=== PATIENT | female | born 1960 | race Caucasian/White ===

== ENCOUNTER → 2023-06-17 12:47 | Outpatient (REF) | payer OTHER, SELFPAY ==
[2023-06-17 15:13] LABS: % Basophils 1.4 % (0-2); % Immature Granulocytes 0.5 % (0-0.5); % Lymphocytes 26.9 % (20.5-51.1); % Monocytes 7.1 % (1.7-9.3); % Neutrophils 59.1 % (42.2-75.2); Absolute Basophils 0.1 10^3/uL (0-0.2); Absolute Eosinophils 0.2 10^3/uL (0-0.7); Absolute Lymphocytes 1.2 10^3/uL (1.2-3.4); Absolute Monocytes 0.3 10^3/uL (0.1-0.6); Absolute Neutrophils 2.6 10^3/uL (1.4-6.5); Hematocrit 37.5 % (37.0-47.0); Hemoglobin 12.1 g/dL (12.0-16.0); Mean Corp Hgb Conc. 32.3 g/dL (33.0-37.0); Mean Corpuscular Hgb 30.3 pg (27.0-31.0); Mean Platelet Volume 11.8 fL (7.4-10.4); Nucleated Red Blood Cells % 0 %; Platelet Count 193 10^3/uL (130-400); Red Blood Cell Count 3.99 10^6/uL (4.20-5.40); Red Cell Dist. Width 14.4 % (11.5-14.5); White Blood Cell Count 4.4 10^3/uL (4.8-10.8)
[2023-06-17 15:23] LABS: ALT (SGPT) 23 U/L (0-35); AST (SGOT) 33 U/L (14-36); Albumin 3.8 g/dl (3.5-5.0); Alkaline Phosphatase 133 U/L (38-126); Blood Urea Nitrogen 23 mg/dl (7-17); Calcium 9.5 mg/dl (8.4-10.2); Carbon Dioxide 30 mmol/L (22-30); Chloride 97 mmol/L (98-107); Glucose 102 mg/dl (70-99); Potassium 4.2 mmol/L (3.5-5.1); Sodium 137 mmol/L (135-145); Total Bilirubin 0.4 mg/dl (0.2-1.3); Total Protein 6.9 g/dl (6.3-8.2); eGFR 57.52
[2023-06-20 18:37] LABS: Chromogranin A 58 ng/mL (0-187)
== END ==
LOC: HWLAB 12:47
PROVIDERS: ATTENDING PHYSICIAN Internal Medicine Hematology & Oncology; FAMILY PHYSICIAN Internal Medicine
DX: C20 Malignant neoplasm of rectum (principal); D70.9 Neutropenia, unspecified
CPT/HCPCS: 36415; 80053; 85025; 86316

== ENCOUNTER → 2023-07-14 12:27 | Outpatient (REF) | payer OTHER, SELFPAY ==
[2023-07-14 15:36] LABS: % Basophils 0.9 % (0-2); % Eosinophils 6.3 % (0-6); % Immature Granulocytes 0.4 % (0-0.5); % Lymphocytes 21.8 % (20.5-51.1); % Monocytes 7.9 % (1.7-9.3); % Neutrophils 62.7 % (42.2-75.2); Absolute Basophils 0.1 10^3/uL (0-0.2); Absolute Eosinophils 0.4 10^3/uL (0-0.7); Absolute Lymphocytes 1.2 10^3/uL (1.2-3.4); Absolute Monocytes 0.4 10^3/uL (0.1-0.6); Absolute Neutrophils 3.5 10^3/uL (1.4-6.5); Hematocrit 36.6 % (37.0-47.0); Hemoglobin 11.8 g/dL (12.0-16.0); Mean Corp Hgb Conc. 32.2 g/dL (33.0-37.0); Mean Corpuscular Hgb 30.3 pg (27.0-31.0); Mean Corpuscular Volume 93.8 fL (81.0-99.0); Mean Platelet Volume 11.6 fL (7.4-10.4); Nucleated Red Blood Cells % 0 %; Platelet Count 182 10^3/uL (130-400); Red Cell Dist. Width 14.9 % (11.5-14.5); White Blood Cell Count 5.6 10^3/uL (4.8-10.8)
[2023-07-14 15:50] LABS: ALT (SGPT) 23 U/L (0-35); AST (SGOT) 29 U/L (14-36); Alkaline Phosphatase 112 U/L (38-126); Blood Urea Nitrogen 17 mg/dl (7-17); Calcium 9.3 mg/dl (8.4-10.2); Carbon Dioxide 31 mmol/L (22-30); Chloride 98 mmol/L (98-107); Glucose 115 mg/dl (70-99); Potassium 4.3 mmol/L (3.5-5.1); Sodium 137 mmol/L (135-145); Total Bilirubin 0.4 mg/dl (0.2-1.3); Total Protein 7.3 g/dl (6.3-8.2); eGFR > 60.00
[2023-07-17 19:07] LABS: Chromogranin A 92 ng/mL (0-187)
== END ==
LOC: HWLAB 12:27
PROVIDERS: ATTENDING PHYSICIAN Internal Medicine Hematology & Oncology; FAMILY PHYSICIAN Internal Medicine; REFERRING PHYSICIAN Nuclear Medicine
DX: C20 Malignant neoplasm of rectum (principal); D70.9 Neutropenia, unspecified; G62.0 Drug-induced polyneuropathy; E34.0 Carcinoid syndrome; C78.7 Secondary malignant neoplasm of liver and intrahepatic bile duct
CPT/HCPCS: 36415; 80053; 85025; 86316

== ENCOUNTER → 2023-08-13 12:44 | Outpatient (REF) | payer OTHER, SELFPAY ==
[2023-08-13 16:14] LABS: % Basophils 1.1 % (0-2); % Eosinophils 7.9 % (0-6); % Immature Granulocytes 0.3 % (0-0.5); % Lymphocytes 24.9 % (20.5-51.1); % Monocytes 11.3 % (1.7-9.3); % Neutrophils 54.5 % (42.2-75.2); Absolute Eosinophils 0.3 10^3/uL (0-0.7); Absolute Lymphocytes 0.9 10^3/uL (1.2-3.4); Absolute Monocytes 0.4 10^3/uL (0.1-0.6); Absolute Neutrophils 1.9 10^3/uL (1.4-6.5); Hematocrit 36.4 % (37.0-47.0); Hemoglobin 11.9 g/dL (12.0-16.0); Mean Corp Hgb Conc. 32.7 g/dL (33.0-37.0); Mean Corpuscular Hgb 30.4 pg (27.0-31.0); Mean Corpuscular Volume 93.1 fL (81.0-99.0); Mean Platelet Volume 12.3 fL (7.4-10.4); Nucleated Red Blood Cells % 0 %; Platelet Count 180 10^3/uL (130-400); Red Blood Cell Count 3.91 10^6/uL (4.20-5.40); Red Cell Dist. Width 14.8 % (11.5-14.5); White Blood Cell Count 3.5 10^3/uL (4.8-10.8)
[2023-08-13 16:21] LABS: ALT (SGPT) 23 U/L (0-35); AST (SGOT) 30 U/L (14-36); Albumin 4.1 g/dl (3.5-5.0); Alkaline Phosphatase 99 U/L (38-126); Blood Urea Nitrogen 16 mg/dl (7-17); Calcium 9.3 mg/dl (8.4-10.2); Carbon Dioxide 33 mmol/L (22-30); Chloride 99 mmol/L (98-107); Glucose 95 mg/dl (70-99); Potassium 4.3 mmol/L (3.5-5.1); Sodium 137 mmol/L (135-145); Total Bilirubin 0.3 mg/dl (0.2-1.3); Total Protein 7.2 g/dl (6.3-8.2); eGFR > 60.00
[2023-08-16 22:08] LABS: Chromogranin A 75 ng/mL (0-187)
== END ==
LOC: HWLAB 12:44
PROVIDERS: ATTENDING PHYSICIAN Internal Medicine Hematology & Oncology; FAMILY PHYSICIAN Internal Medicine; REFERRING PHYSICIAN Nuclear Medicine
DX: C20 Malignant neoplasm of rectum (principal); D70.9 Neutropenia, unspecified; G62.0 Drug-induced polyneuropathy; E34.0 Carcinoid syndrome; C78.7 Secondary malignant neoplasm of liver and intrahepatic bile duct
CPT/HCPCS: 36415; 80053; 85025; 86316

== ENCOUNTER → 2023-09-12 13:25 | Outpatient (REF) | payer OTHER, SELFPAY ==
[2023-09-12 15:47] LABS: ALT (SGPT) 19 U/L (0-35); AST (SGOT) 31 U/L (14-36); Albumin 4.1 g/dl (3.5-5.0); Alkaline Phosphatase 127 U/L (38-126); Blood Urea Nitrogen 21 mg/dl (7-17); Calcium 9.1 mg/dl (8.4-10.2); Carbon Dioxide 28 mmol/L (22-30); Chloride 102 mmol/L (98-107); Glucose 91 mg/dl (70-99); Potassium 4.1 mmol/L (3.5-5.1); Sodium 138 mmol/L (135-145); Total Bilirubin 0.4 mg/dl (0.2-1.3); Total Protein 7.2 g/dl (6.3-8.2); eGFR 57.52
[2023-09-12 15:51] LABS: % Basophils 0.8 % (0-2); % Eosinophils 4.5 % (0-6); % Immature Granulocytes 0.4 % (0-0.5); % Lymphocytes 13.3 % (20.5-51.1); Absolute Eosinophils 0.2 10^3/uL (0-0.7); Absolute Lymphocytes 0.7 10^3/uL (1.2-3.4); Absolute Monocytes 0.4 10^3/uL (0.1-0.6); Absolute Neutrophils 3.5 10^3/uL (1.4-6.5); Hemoglobin 11.1 g/dL (12.0-16.0); Mean Corp Hgb Conc. 33.6 g/dL (33.0-37.0); Mean Corpuscular Hgb 30.6 pg (27.0-31.0); Mean Corpuscular Volume 90.9 fL (81.0-99.0); Mean Platelet Volume 11.3 fL (7.4-10.4); Nucleated Red Blood Cells % 0 %; Platelet Count 171 10^3/uL (130-400); Red Blood Cell Count 3.63 10^6/uL (4.20-5.40); White Blood Cell Count 4.9 10^3/uL (4.8-10.8)
== END ==
LOC: HWLAB 13:25
PROVIDERS: ATTENDING PHYSICIAN Internal Medicine Hematology & Oncology; FAMILY PHYSICIAN Internal Medicine; REFERRING PHYSICIAN Nuclear Medicine
DX: C20 Malignant neoplasm of rectum (principal); D70.9 Neutropenia, unspecified; G62.0 Drug-induced polyneuropathy; E34.0 Carcinoid syndrome; C78.7 Secondary malignant neoplasm of liver and intrahepatic bile duct
CPT/HCPCS: 36415; 80053; 85025; 86316

== ENCOUNTER → 2023-10-08 13:20 | Outpatient (REF) | payer OTHER, SELFPAY ==
[2023-10-08 16:21] LABS: % Basophils 1.7 % (0-2); % Eosinophils 8.8 % (0-6); % Immature Granulocytes 0.3 % (0-0.5); % Lymphocytes 13.5 % (20.5-51.1); % Monocytes 7.4 % (1.7-9.3); % Neutrophils 68.3 % (42.2-75.2); Absolute Basophils 0.1 10^3/uL (0-0.2); Absolute Eosinophils 0.3 10^3/uL (0-0.7); Absolute Lymphocytes 0.4 10^3/uL (1.2-3.4); Absolute Monocytes 0.2 10^3/uL (0.1-0.6); Hematocrit 37.8 % (37.0-47.0); Hemoglobin 12.5 g/dL (12.0-16.0); Mean Corp Hgb Conc. 33.1 g/dL (33.0-37.0); Mean Corpuscular Hgb 30.9 pg (27.0-31.0); Mean Corpuscular Volume 93.6 fL (81.0-99.0); Mean Platelet Volume 11.8 fL (7.4-10.4); Nucleated Red Blood Cells % 0 %; Platelet Count 180 10^3/uL (130-400); Red Blood Cell Count 4.04 10^6/uL (4.20-5.40); Red Cell Dist. Width 15.4 % (11.5-14.5)
[2023-10-08 16:42] LABS: ALT (SGPT) 20 U/L (0-35); AST (SGOT) 32 U/L (14-36); Albumin 4.3 g/dl (3.5-5.0); Alkaline Phosphatase 118 U/L (38-126); Blood Urea Nitrogen 11 mg/dl (7-17); Calcium 9.5 mg/dl (8.4-10.2); Carbon Dioxide 30 mmol/L (22-30); Chloride 101 mmol/L (98-107); Glucose 137 mg/dl (70-99); Potassium 3.9 mmol/L (3.5-5.1); Sodium 139 mmol/L (135-145); Total Bilirubin 0.7 mg/dl (0.2-1.3); Total Protein 7.5 g/dl (6.3-8.2); eGFR > 60.00
== END ==
LOC: HWLAB 13:20
PROVIDERS: ATTENDING PHYSICIAN Internal Medicine Hematology & Oncology; FAMILY PHYSICIAN Internal Medicine; REFERRING PHYSICIAN Nuclear Medicine
DX: C20 Malignant neoplasm of rectum (principal); D70.9 Neutropenia, unspecified; G62.0 Drug-induced polyneuropathy; E34.0 Carcinoid syndrome; C78.7 Secondary malignant neoplasm of liver and intrahepatic bile duct
CPT/HCPCS: 36415; 80053; 85025; 86316

== ENCOUNTER → 2023-11-06 12:41 | Outpatient (REF) | payer OTHER, SELFPAY ==
[2023-11-06 15:55] LABS: % Basophils 0.9 % (0-2); % Immature Granulocytes 0.3 % (0-0.5); % Lymphocytes 11.7 % (20.5-51.1); % Neutrophils 77.1 % (42.2-75.2); Absolute Eosinophils 0.1 10^3/uL (0-0.7); Absolute Lymphocytes 0.4 10^3/uL (1.2-3.4); Absolute Monocytes 0.2 10^3/uL (0.1-0.6); Absolute Neutrophils 2.7 10^3/uL (1.4-6.5); Hematocrit 35.9 % (37.0-47.0); Mean Corp Hgb Conc. 33.4 g/dL (33.0-37.0); Mean Corpuscular Hgb 32.3 pg (27.0-31.0); Mean Corpuscular Volume 96.5 fL (81.0-99.0); Mean Platelet Volume 10.9 fL (7.4-10.4); Nucleated Red Blood Cells % 0 %; Platelet Count 167 10^3/uL (130-400); Red Blood Cell Count 3.72 10^6/uL (4.20-5.40); Red Cell Dist. Width 15.1 % (11.5-14.5); White Blood Cell Count 3.5 10^3/uL (4.8-10.8)
[2023-11-06 16:06] LABS: ALT (SGPT) 21 U/L (0-35); AST (SGOT) 27 U/L (14-36); Albumin 4.3 g/dl (3.5-5.0); Alkaline Phosphatase 122 U/L (38-126); Blood Urea Nitrogen 24 mg/dl (7-17); Calcium 9.5 mg/dl (8.4-10.2); Carbon Dioxide 28 mmol/L (22-30); Chloride 102 mmol/L (98-107); Glucose 125 mg/dl (70-99); Potassium 4.2 mmol/L (3.5-5.1); Sodium 138 mmol/L (135-145); Total Bilirubin 0.5 mg/dl (0.2-1.3); Total Protein 7.4 g/dl (6.3-8.2); eGFR > 60.00
== END ==
LOC: HWLAB 12:41
PROVIDERS: ATTENDING PHYSICIAN Internal Medicine Hematology & Oncology; FAMILY PHYSICIAN Internal Medicine; REFERRING PHYSICIAN Nuclear Medicine
DX: C20 Malignant neoplasm of rectum (principal); D70.9 Neutropenia, unspecified; G62.0 Drug-induced polyneuropathy; E34.0 Carcinoid syndrome; C78.7 Secondary malignant neoplasm of liver and intrahepatic bile duct
CPT/HCPCS: 36415; 80053; 85025; 86316

== ENCOUNTER → 2023-12-02 14:11 | Outpatient (REF) | payer OTHER, SELFPAY ==
[2023-12-02 16:08] LABS: % Basophils 0.6 % (0-2); % Eosinophils 5.8 % (0-6); % Immature Granulocytes 0.3 % (0-0.5); % Lymphocytes 8.6 % (20.5-51.1); % Monocytes 9.5 % (1.7-9.3); % Neutrophils 75.2 % (42.2-75.2); Absolute Eosinophils 0.2 10^3/uL (0-0.7); Absolute Lymphocytes 0.3 10^3/uL (1.2-3.4); Absolute Monocytes 0.3 10^3/uL (0.1-0.6); Absolute Neutrophils 2.5 10^3/uL (1.4-6.5); Hematocrit 32.8 % (37.0-47.0); Mean Corp Hgb Conc. 33.5 g/dL (33.0-37.0); Mean Corpuscular Hgb 32.3 pg (27.0-31.0); Mean Corpuscular Volume 96.2 fL (81.0-99.0); Nucleated Red Blood Cells % 0 %; Platelet Count 151 10^3/uL (130-400); Red Blood Cell Count 3.41 10^6/uL (4.20-5.40); Red Cell Dist. Width 14.5 % (11.5-14.5); White Blood Cell Count 3.3 10^3/uL (4.8-10.8)
[2023-12-02 16:30] LABS: ALT (SGPT) 25 U/L (0-35); AST (SGOT) 35 U/L (14-36); Albumin 4.3 g/dl (3.5-5.0); Alkaline Phosphatase 117 U/L (38-126); Blood Urea Nitrogen 18 mg/dl (7-17); Calcium 9.3 mg/dl (8.4-10.2); Carbon Dioxide 31 mmol/L (22-30); Chloride 100 mmol/L (98-107); Glucose 63 mg/dl (70-99); Sodium 137 mmol/L (135-145); Total Bilirubin 0.4 mg/dl (0.2-1.3); Total Protein 7.3 g/dl (6.3-8.2); eGFR > 60.00
== END ==
LOC: REG 14:11
PROVIDERS: ATTENDING PHYSICIAN Internal Medicine Hematology & Oncology; FAMILY PHYSICIAN Internal Medicine
DX: C20 Malignant neoplasm of rectum (principal); D70.9 Neutropenia, unspecified; G62.0 Drug-induced polyneuropathy; E34.0 Carcinoid syndrome; C78.7 Secondary malignant neoplasm of liver and intrahepatic bile duct
CPT/HCPCS: 36415; 80053; 85025; 86316

== ENCOUNTER → 2023-12-24 13:05 | Outpatient (REF) | payer OTHER, SELFPAY ==
[2023-12-24 15:49] LABS: % Basophils 0.8 % (0-2); % Eosinophils 4.3 % (0-6); % Immature Granulocytes 0.3 % (0-0.5); % Lymphocytes 7.5 % (20.5-51.1); % Monocytes 5.1 % (1.7-9.3); Absolute Eosinophils 0.2 10^3/uL (0-0.7); Absolute Lymphocytes 0.3 10^3/uL (1.2-3.4); Absolute Monocytes 0.2 10^3/uL (0.1-0.6); Mean Corp Hgb Conc. 33.3 g/dL (33.0-37.0); Mean Corpuscular Hgb 32.5 pg (27.0-31.0); Mean Corpuscular Volume 97.6 fL (81.0-99.0); Mean Platelet Volume 10.2 fL (7.4-10.4); Nucleated Red Blood Cells % 0 %; Platelet Count 130 10^3/uL (130-400); Red Blood Cell Count 3.38 10^6/uL (4.20-5.40); Red Cell Dist. Width 14.2 % (11.5-14.5); White Blood Cell Count 3.7 10^3/uL (4.8-10.8)
[2023-12-24 15:54] LABS: ALT (SGPT) 20 U/L (0-35); AST (SGOT) 29 U/L (14-36); Albumin 4.2 g/dl (3.5-5.0); Alkaline Phosphatase 106 U/L (38-126); Blood Urea Nitrogen 21 mg/dl (7-17); Calcium 9.6 mg/dl (8.4-10.2); Carbon Dioxide 31 mmol/L (22-30); Chloride 102 mmol/L (98-107); Glucose 132 mg/dl (70-99); Potassium 4.3 mmol/L (3.5-5.1); Sodium 143 mmol/L (135-145); Total Bilirubin 0.6 mg/dl (0.2-1.3); Total Protein 7.1 g/dl (6.3-8.2); eGFR > 60.00
== END ==
LOC: HWLAB 13:05
PROVIDERS: ATTENDING PHYSICIAN Nuclear Medicine; FAMILY PHYSICIAN Internal Medicine; REFERRING PHYSICIAN Internal Medicine Hematology & Oncology
DX: C78.7 Secondary malignant neoplasm of liver and intrahepatic bile duct (principal)
CPT/HCPCS: 36415; 80053; 85025

== ENCOUNTER → 2024-01-28 15:28 | Outpatient (REF) | payer OTHER, SELFPAY ==
[2024-01-28 16:18] LABS: % Basophils 1.4 % (0-2); % Eosinophils 7.5 % (0-6); % Immature Granulocytes 0.4 % (0-0.5); % Lymphocytes 9.3 % (20.5-51.1); % Monocytes 6.4 % (1.7-9.3); Absolute Eosinophils 0.2 10^3/uL (0-0.7); Absolute Lymphocytes 0.3 10^3/uL (1.2-3.4); Absolute Monocytes 0.2 10^3/uL (0.1-0.6); Absolute Neutrophils 2.1 10^3/uL (1.4-6.5); Hematocrit 33.8 % (37.0-47.0); Hemoglobin 11.4 g/dL (12.0-16.0); Mean Corp Hgb Conc. 33.7 g/dL (33.0-37.0); Mean Corpuscular Hgb 34.5 pg (27.0-31.0); Mean Corpuscular Volume 102.4 fL (81.0-99.0); Mean Platelet Volume 10.7 fL (7.4-10.4); Nucleated Red Blood Cells % 0 %; Platelet Count 130 10^3/uL (130-400); Red Cell Dist. Width 13.4 % (11.5-14.5); White Blood Cell Count 2.8 10^3/uL (4.8-10.8)
[2024-01-28 16:41] LABS: ALT (SGPT) 24 U/L (0-35); AST (SGOT) 29 U/L (14-36); Albumin 4.5 g/dl (3.5-5.0); Alkaline Phosphatase 104 U/L (38-126); Blood Urea Nitrogen 12 mg/dl (7-17); Calcium 9.6 mg/dl (8.4-10.2); Carbon Dioxide 30 mmol/L (22-30); Chloride 99 mmol/L (98-107); Glucose 112 mg/dl (70-99); Potassium 4.7 mmol/L (3.5-5.1); Sodium 142 mmol/L (135-145); Total Bilirubin 0.4 mg/dl (0.2-1.3); Total Protein 7.6 g/dl (6.3-8.2); eGFR > 60.00
[2024-01-31 17:27] LABS: Chromogranin A 58 ng/mL (0-187)
== END ==
LOC: REG 15:28
PROVIDERS: ATTENDING PHYSICIAN Internal Medicine Hematology & Oncology; FAMILY PHYSICIAN Internal Medicine; REFERRING PHYSICIAN Nuclear Medicine
DX: C20 Malignant neoplasm of rectum (principal); D70.9 Neutropenia, unspecified; G62.0 Drug-induced polyneuropathy; C78.7 Secondary malignant neoplasm of liver and intrahepatic bile duct; E34.00 Carcinoid syndrome, unspecified
CPT/HCPCS: 36415; 80053; 85025; 86316

== ENCOUNTER → 2024-02-25 13:03 | Outpatient (REF) | payer OTHER, SELFPAY ==
[2024-02-25 16:50] LABS: ALT (SGPT) 43 U/L (0-35); AST (SGOT) 34 U/L (14-36); Albumin 4.2 g/dl (3.5-5.0); Alkaline Phosphatase 114 U/L (38-126); Blood Urea Nitrogen 12 mg/dl (7-17); Carbon Dioxide 28 mmol/L (22-30); Chloride 100 mmol/L (98-107); Glucose 103 mg/dl (70-99); Potassium 5.5 mmol/L (3.5-5.1); Sodium 138 mmol/L (135-145); Total Bilirubin 0.3 mg/dl (0.2-1.3); eGFR > 60.00
[2024-02-25 17:05] LABS: % Basophils 0.9 % (0-2); % Immature Granulocytes 1.2 % (0-0.5); % Lymphocytes 15.7 % (20.5-51.1); % Monocytes 9.5 % (1.7-9.3); % Neutrophils 61.7 % (42.2-75.2); Absolute Eosinophils 0.4 10^3/uL (0-0.7); Absolute Lymphocytes 0.5 10^3/uL (1.2-3.4); Absolute Monocytes 0.3 10^3/uL (0.1-0.6); Absolute Neutrophils 2.1 10^3/uL (1.4-6.5); Hematocrit 31.9 % (37.0-47.0); Hemoglobin 10.6 g/dL (12.0-16.0); Mean Corp Hgb Conc. 33.2 g/dL (33.0-37.0); Mean Corpuscular Hgb 33.3 pg (27.0-31.0); Mean Corpuscular Volume 100.3 fL (81.0-99.0); Mean Platelet Volume 10.6 fL (7.4-10.4); Nucleated Red Blood Cells % 0 %; Platelet Count 150 10^3/uL (130-400); Red Blood Cell Count 3.18 10^6/uL (4.20-5.40); Red Cell Dist. Width 14.3 % (11.5-14.5); White Blood Cell Count 3.4 10^3/uL (4.8-10.8)
== END ==
LOC: HWLAB 13:03
PROVIDERS: ATTENDING PHYSICIAN Internal Medicine Hematology & Oncology; FAMILY PHYSICIAN Internal Medicine; REFERRING PHYSICIAN Nuclear Medicine
DX: C20 Malignant neoplasm of rectum (principal); D70.9 Neutropenia, unspecified; G62.0 Drug-induced polyneuropathy; E34.00 Carcinoid syndrome, unspecified
CPT/HCPCS: 36415; 80053; 85025; 86316

== ENCOUNTER → 2024-03-29 12:35 | Outpatient (REF) | payer OTHER, SELFPAY ==
[2024-03-29 17:36] LABS: ALT (SGPT) 27 U/L (0-35); AST (SGOT) 37 U/L (14-36); Albumin 4.2 g/dl (3.5-5.0); Alkaline Phosphatase 146 U/L (38-126); Blood Urea Nitrogen 9 mg/dl (7-17); Calcium 8.9 mg/dl (8.4-10.2); Carbon Dioxide 30 mmol/L (22-30); Chloride 99 mmol/L (98-107); Glucose 98 mg/dl (70-99); Potassium 4.3 mmol/L (3.5-5.1); Sodium 140 mmol/L (135-145); Total Bilirubin 0.6 mg/dl (0.2-1.3); Total Protein 7.5 g/dl (6.3-8.2)
[2024-03-29 17:43] LABS: % Basophils 1.3 % (0-2); % Immature Granulocytes 0.3 % (0-0.5); % Lymphocytes 13.3 % (20.5-51.1); % Monocytes 8.9 % (1.7-9.3); % Neutrophils 55.2 % (42.2-75.2); Absolute Eosinophils 0.7 10^3/uL (0-0.7); Absolute Lymphocytes 0.4 10^3/uL (1.2-3.4); Absolute Monocytes 0.3 10^3/uL (0.1-0.6); Absolute Neutrophils 1.7 10^3/uL (1.4-6.5); Hematocrit 31.6 % (37.0-47.0); Hemoglobin 10.3 g/dL (12.0-16.0); Mean Corp Hgb Conc. 32.6 g/dL (33.0-37.0); Mean Corpuscular Hgb 34.3 pg (27.0-31.0); Mean Corpuscular Volume 105.3 fL (81.0-99.0); Mean Platelet Volume 10.9 fL (7.4-10.4); Nucleated Red Blood Cells % 0 %; Platelet Count 132 10^3/uL (130-400); Red Cell Dist. Width 13.6 % (11.5-14.5); White Blood Cell Count 3.2 10^3/uL (4.8-10.8)
[2024-03-30 16:32] LABS: Iron 106 ug/dl (37-170)
[2024-03-30 16:42] LABS: Percent Saturation 45 % (20-50); Total Iron Binding Capacity 231 ug/dl (265-497)
[2024-03-30 17:09] LABS: Ferritin 42.4 ng/ml (11.1-264.0)
[2024-03-30 17:40] LABS: Folate 17.9 ng/ml (2.76-20); Vitamin B12 442 pg/ml (239-931)
[2024-03-31 16:23] LABS: Chromogranin A 46 ng/mL (0-187)
== END ==
LOC: HWLAB 12:35
PROVIDERS: ATTENDING PHYSICIAN Internal Medicine Hematology & Oncology; FAMILY PHYSICIAN Internal Medicine; REFERRING PHYSICIAN Nuclear Medicine
DX: C20 Malignant neoplasm of rectum (principal); D70.9 Neutropenia, unspecified; G62.0 Drug-induced polyneuropathy; C78.7 Secondary malignant neoplasm of liver and intrahepatic bile duct; E34.00 Carcinoid syndrome, unspecified
CPT/HCPCS: 36415; 80053; 82607; 82728; 82746; 83540; 83550; 85025; 86316

== ENCOUNTER → 2024-04-20 12:55 | Outpatient (REF) | payer OTHER, SELFPAY ==
[2024-04-20 15:21] LABS: ALT (SGPT) 52 U/L (0-35); AST (SGOT) 70 U/L (14-36); Albumin 4.1 g/dl (3.5-5.0); Alkaline Phosphatase 118 U/L (38-126); Blood Urea Nitrogen 11 mg/dl (7-17); Calcium 8.8 mg/dl (8.4-10.2); Carbon Dioxide 25 mmol/L (22-30); Chloride 101 mmol/L (98-107); Glucose 108 mg/dl (70-99); Potassium 4.4 mmol/L (3.5-5.1); Sodium 135 mmol/L (135-145); Total Bilirubin 0.3 mg/dl (0.2-1.3); Total Protein 7.1 g/dl (6.3-8.2); eGFR > 60.00
[2024-04-20 15:27] LABS: % Basophils 1.1 % (0-2); % Eosinophils 13.8 % (0-6); % Lymphocytes 21.8 % (20.5-51.1); % Monocytes 11.1 % (1.7-9.3); % Neutrophils 52.2 % (42.2-75.2); Absolute Eosinophils 0.4 10^3/uL (0-0.7); Absolute Lymphocytes 0.6 10^3/uL (1.2-3.4); Absolute Monocytes 0.3 10^3/uL (0.1-0.6); Absolute Neutrophils 1.4 10^3/uL (1.4-6.5); Hematocrit 28.8 % (37.0-47.0); Hemoglobin 9.6 g/dL (12.0-16.0); Mean Corp Hgb Conc. 33.3 g/dL (33.0-37.0); Mean Corpuscular Volume 105.1 fL (81.0-99.0); Mean Platelet Volume 10.7 fL (7.4-10.4); Nucleated Red Blood Cells % 0 %; Platelet Count 116 10^3/uL (130-400); Red Blood Cell Count 2.74 10^6/uL (4.20-5.40); Red Cell Dist. Width 13.7 % (11.5-14.5); White Blood Cell Count 2.6 10^3/uL (4.8-10.8)
== END ==
LOC: HWLAB 12:55
PROVIDERS: ATTENDING PHYSICIAN Internal Medicine Hematology & Oncology; FAMILY PHYSICIAN Internal Medicine; REFERRING PHYSICIAN Nuclear Medicine
DX: C20 Malignant neoplasm of rectum (principal); D70.9 Neutropenia, unspecified; G62.0 Drug-induced polyneuropathy; E34.00 Carcinoid syndrome, unspecified; C78.7 Secondary malignant neoplasm of liver and intrahepatic bile duct
CPT/HCPCS: 36415; 80053; 85025; 86316

== ENCOUNTER → 2024-05-24 14:54 | Outpatient (REF) | payer OTHER, SELFPAY ==
[2024-05-24 15:59] LABS: % Basophils 0.6 % (0-2); % Eosinophils 5.6 % (0-6); % Immature Granulocytes 0.6 % (0-0.5); % Lymphocytes 13.2 % (20.5-51.1); Absolute Eosinophils 0.3 10^3/uL (0-0.7); Absolute Lymphocytes 0.6 10^3/uL (1.2-3.4); Absolute Monocytes 0.3 10^3/uL (0.1-0.6); Absolute Neutrophils 3.5 10^3/uL (1.4-6.5); Hematocrit 32.1 % (37.0-47.0); Hemoglobin 10.4 g/dL (12.0-16.0); Mean Corp Hgb Conc. 32.4 g/dL (33.0-37.0); Mean Corpuscular Hgb 33.8 pg (27.0-31.0); Mean Corpuscular Volume 104.2 fL (81.0-99.0); Mean Platelet Volume 10.9 fL (7.4-10.4); Nucleated Red Blood Cells % 0 %; Platelet Count 145 10^3/uL (130-400); Red Blood Cell Count 3.08 10^6/uL (4.20-5.40); Red Cell Dist. Width 13.8 % (11.5-14.5); White Blood Cell Count 4.9 10^3/uL (4.8-10.8)
[2024-05-24 16:14] LABS: ALT (SGPT) 25 U/L (0-35); AST (SGOT) 31 U/L (14-36); Albumin 4.1 g/dl (3.5-5.0); Alkaline Phosphatase 113 U/L (38-126); Blood Urea Nitrogen 19 mg/dl (7-17); Calcium 9.1 mg/dl (8.4-10.2); Carbon Dioxide 33 mmol/L (22-30); Chloride 97 mmol/L (98-107); Glucose 121 mg/dl (70-99); Potassium 4.2 mmol/L (3.5-5.1); Sodium 136 mmol/L (135-145); Total Bilirubin 0.3 mg/dl (0.2-1.3); eGFR 57.17
== END ==
LOC: REG 14:54
PROVIDERS: ATTENDING PHYSICIAN Internal Medicine Hematology & Oncology; FAMILY PHYSICIAN Internal Medicine; OTHER PHYSICIAN Nuclear Medicine
DX: C20 Malignant neoplasm of rectum (principal); D70.9 Neutropenia, unspecified; G62.0 Drug-induced polyneuropathy; E34.00 Carcinoid syndrome, unspecified; C78.7 Secondary malignant neoplasm of liver and intrahepatic bile duct
CPT/HCPCS: 36415; 80053; 85025

== ENCOUNTER → 2024-06-18 13:27 | Outpatient (REF) | payer OTHER, SELFPAY ==
[2024-06-18 15:29] LABS: % Basophils 0.5 % (0-2); % Eosinophils 6.7 % (0-6); % Immature Granulocytes 0.3 % (0-0.5); % Lymphocytes 17.5 % (20.5-51.1); % Monocytes 8.2 % (1.7-9.3); % Neutrophils 66.8 % (42.2-75.2); Absolute Eosinophils 0.3 10^3/uL (0-0.7); Absolute Lymphocytes 0.7 10^3/uL (1.2-3.4); Absolute Monocytes 0.3 10^3/uL (0.1-0.6); Absolute Neutrophils 2.6 10^3/uL (1.4-6.5); Hematocrit 33.7 % (37.0-47.0); Hemoglobin 11.4 g/dL (12.0-16.0); Mean Corp Hgb Conc. 33.8 g/dL (33.0-37.0); Mean Corpuscular Hgb 34.9 pg (27.0-31.0); Mean Corpuscular Volume 103.1 fL (81.0-99.0); Mean Platelet Volume 11.2 fL (7.4-10.4); Nucleated Red Blood Cells % 0 %; Platelet Count 149 10^3/uL (130-400); Red Blood Cell Count 3.27 10^6/uL (4.20-5.40); Red Cell Dist. Width 13.6 % (11.5-14.5); White Blood Cell Count 3.9 10^3/uL (4.8-10.8)
[2024-06-18 15:37] LABS: ALT (SGPT) 44 U/L (0-35); AST (SGOT) 39 U/L (14-36); Albumin 4.2 g/dl (3.5-5.0); Alkaline Phosphatase 133 U/L (38-126); Blood Urea Nitrogen 12 mg/dl (7-17); Calcium 9.1 mg/dl (8.4-10.2); Carbon Dioxide 28 mmol/L (22-30); Chloride 104 mmol/L (98-107); Glucose 119 mg/dl (70-99); Iron 89 ug/dl (37-170); Potassium 4.1 mmol/L (3.5-5.1); Sodium 139 mmol/L (135-145); Total Bilirubin 0.5 mg/dl (0.2-1.3); Total Protein 7.6 g/dl (6.3-8.2); eGFR > 60.00
[2024-06-18 15:47] LABS: Percent Saturation 33 % (20-50); Total Iron Binding Capacity 264 ug/dl (265-497)
[2024-06-18 16:12] LABS: Ferritin 30.7 ng/ml (11.1-264.0)
[2024-06-18 16:43] LABS: Folate > 20.0 ng/ml (2.76-20); Vitamin B12 526 pg/ml (239-931)
== END ==
LOC: HWLAB 13:27
PROVIDERS: ATTENDING PHYSICIAN Internal Medicine Hematology & Oncology; FAMILY PHYSICIAN Internal Medicine; REFERRING PHYSICIAN Nuclear Medicine
DX: C20 Malignant neoplasm of rectum (principal); D70.9 Neutropenia, unspecified; G62.0 Drug-induced polyneuropathy; E34.00 Carcinoid syndrome, unspecified; C78.7 Secondary malignant neoplasm of liver and intrahepatic bile duct
CPT/HCPCS: 36415; 80053; 82607; 82728; 82746; 83540; 83550; 85025

== ENCOUNTER → 2024-07-05 13:48 | Outpatient (REF) | payer OTHER, SELFPAY | LOC: HWLAB 13:48 | PROVIDERS: ATTENDING PHYSICIAN Nurse Practitioner Adult Health; FAMILY PHYSICIAN Internal Medicine | DX: C20 Malignant neoplasm of rectum (principal); D70.9 Neutropenia, unspecified; G62.0 Drug-induced polyneuropathy; E34.00 Carcinoid syndrome, unspecified; C78.7 Secondary malignant neoplasm of liver and intrahepatic bile duct | CPT/HCPCS: 87045; 87046; 87324; 87328; 87329; 87427; 87449; 89055 ==

== ENCOUNTER → 2024-07-13 13:18 | Outpatient (REF) | payer OTHER, SELFPAY ==
[2024-07-13 16:40] LABS: % Basophils 1.3 % (0-2); % Eosinophils 10.2 % (0-6); % Immature Granulocytes 0.3 % (0-0.5); % Lymphocytes 27.5 % (20.5-51.1); % Monocytes 9.2 % (1.7-9.3); % Neutrophils 51.5 % (42.2-75.2); Absolute Eosinophils 0.3 10^3/uL (0-0.7); Absolute Lymphocytes 0.8 10^3/uL (1.2-3.4); Absolute Monocytes 0.3 10^3/uL (0.1-0.6); Absolute Neutrophils 1.6 10^3/uL (1.4-6.5); Hematocrit 31.6 % (37.0-47.0); Hemoglobin 10.5 g/dL (12.0-16.0); Mean Corp Hgb Conc. 33.2 g/dL (33.0-37.0); Mean Corpuscular Hgb 33.9 pg (27.0-31.0); Mean Corpuscular Volume 101.9 fL (81.0-99.0); Mean Platelet Volume 11.9 fL (7.4-10.4); Nucleated Red Blood Cells % 0 %; Platelet Count 124 10^3/uL (130-400); Red Cell Dist. Width 13.9 % (11.5-14.5); White Blood Cell Count 3.1 10^3/uL (4.8-10.8)
[2024-07-13 16:54] LABS: ALT (SGPT) 30 U/L (0-35); AST (SGOT) 30 U/L (14-36); Albumin 3.9 g/dl (3.5-5.0); Alkaline Phosphatase 129 U/L (38-126); Blood Urea Nitrogen 10 mg/dl (7-17); Calcium 8.8 mg/dl (8.4-10.2); Carbon Dioxide 30 mmol/L (22-30); Chloride 103 mmol/L (98-107); Glucose 92 mg/dl (70-99); Potassium 4.1 mmol/L (3.5-5.1); Sodium 138 mmol/L (135-145); Total Bilirubin 0.5 mg/dl (0.2-1.3); Total Protein 6.9 g/dl (6.3-8.2); eGFR > 60.00
== END ==
LOC: HWLAB 13:18
PROVIDERS: ATTENDING PHYSICIAN Internal Medicine Hematology & Oncology; FAMILY PHYSICIAN Internal Medicine; REFERRING PHYSICIAN Nuclear Medicine
DX: C20 Malignant neoplasm of rectum (principal); D70.9 Neutropenia, unspecified; G62.0 Drug-induced polyneuropathy; E34.00 Carcinoid syndrome, unspecified; C78.7 Secondary malignant neoplasm of liver and intrahepatic bile duct
CPT/HCPCS: 36415; 80053; 85025; 86316

== ENCOUNTER → 2024-08-18 13:21 | Outpatient (REF) | payer OTHER, SELFPAY ==
[2024-08-18 16:04] LABS: % Basophils 0.5 % (0-2); % Eosinophils 1.9 % (0-6); % Immature Granulocytes 0.5 % (0-0.5); % Lymphocytes 11.4 % (20.5-51.1); % Monocytes 4.1 % (1.7-9.3); % Neutrophils 81.6 % (42.2-75.2); Absolute Eosinophils 0.1 10^3/uL (0-0.7); Absolute Lymphocytes 0.5 10^3/uL (1.2-3.4); Absolute Monocytes 0.2 10^3/uL (0.1-0.6); Absolute Neutrophils 3.4 10^3/uL (1.4-6.5); Hematocrit 32.4 % (37.0-47.0); Mean Corpuscular Hgb 33.8 pg (27.0-31.0); Mean Corpuscular Volume 99.7 fL (81.0-99.0); Nucleated Red Blood Cells % 0 %; Red Blood Cell Count 3.25 10^6/uL (4.20-5.40); Red Cell Dist. Width 13.5 % (11.5-14.5); White Blood Cell Count 4.1 10^3/uL (4.8-10.8)
[2024-08-18 16:05] LABS: ALT (SGPT) 52 U/L (0-35); AST (SGOT) 56 U/L (14-36); Albumin 3.9 g/dl (3.5-5.0); Alkaline Phosphatase 94 U/L (38-126); Blood Urea Nitrogen 16 mg/dl (7-17); Calcium 9.5 mg/dl (8.4-10.2); Carbon Dioxide 25 mmol/L (22-30); Chloride 105 mmol/L (98-107); Glucose 155 mg/dl (70-99); Potassium 4.2 mmol/L (3.5-5.1); Sodium 140 mmol/L (135-145); Total Bilirubin 0.5 mg/dl (0.2-1.3); eGFR > 60.00
[2024-08-18 16:36] LABS: Mean Platelet Volume 11.8 fL (7.4-10.4); Platelet Count 115 10^3/uL (130-400)
== END ==
LOC: HWLAB 13:21
PROVIDERS: ATTENDING PHYSICIAN Internal Medicine Hematology & Oncology; FAMILY PHYSICIAN Internal Medicine; REFERRING PHYSICIAN Nuclear Medicine
DX: C20 Malignant neoplasm of rectum (principal); D70.9 Neutropenia, unspecified; G62.0 Drug-induced polyneuropathy; E34.00 Carcinoid syndrome, unspecified; C78.7 Secondary malignant neoplasm of liver and intrahepatic bile duct
CPT/HCPCS: 36415; 80053; 85025

== ENCOUNTER → 2024-09-14 15:17 | Outpatient (REF) | payer OTHER, SELFPAY ==
[2024-09-14 17:03] LABS: ALT (SGPT) 24 U/L (0-35); AST (SGOT) 29 U/L (14-36); Albumin 4.3 g/dl (3.5-5.0); Alkaline Phosphatase 86 U/L (38-126); Blood Urea Nitrogen 12 mg/dl (7-17); Calcium 8.9 mg/dl (8.4-10.2); Carbon Dioxide 24 mmol/L (22-30); Chloride 109 mmol/L (98-107); Glucose 154 mg/dl (70-99); Potassium 3.9 mmol/L (3.5-5.1); Sodium 139 mmol/L (135-145); Total Bilirubin 0.6 mg/dl (0.2-1.3); Total Protein 7.2 g/dl (6.3-8.2); eGFR > 60.00
[2024-09-14 17:11] LABS: % Basophils 0.4 % (0-2); % Eosinophils 3.9 % (0-6); % Lymphocytes 21.4 % (20.5-51.1); % Monocytes 7.9 % (1.7-9.3); % Neutrophils 66.4 % (42.2-75.2); Absolute Eosinophils 0.1 10^3/uL (0-0.7); Absolute Lymphocytes 0.6 10^3/uL (1.2-3.4); Absolute Monocytes 0.2 10^3/uL (0.1-0.6); Absolute Neutrophils 1.9 10^3/uL (1.4-6.5); Hematocrit 30.5 % (37.0-47.0); Hemoglobin 10.5 g/dL (12.0-16.0); Mean Corp Hgb Conc. 34.4 g/dL (33.0-37.0); Mean Corpuscular Hgb 34.5 pg (27.0-31.0); Mean Corpuscular Volume 100.3 fL (81.0-99.0); Mean Platelet Volume 12.3 fL (7.4-10.4); Nucleated Red Blood Cells % 0 %; Platelet Count 97 10^3/uL (130-400); Red Blood Cell Count 3.04 10^6/uL (4.20-5.40); Red Cell Dist. Width 14.6 % (11.5-14.5); White Blood Cell Count 2.8 10^3/uL (4.8-10.8)
== END ==
LOC: REG 15:17
PROVIDERS: ATTENDING PHYSICIAN Internal Medicine Hematology & Oncology; FAMILY PHYSICIAN Internal Medicine; OTHER PHYSICIAN Nuclear Medicine
DX: C20 Malignant neoplasm of rectum (principal); D70.9 Neutropenia, unspecified; G62.0 Drug-induced polyneuropathy; E34.00 Carcinoid syndrome, unspecified; C78.7 Secondary malignant neoplasm of liver and intrahepatic bile duct
CPT/HCPCS: 36415; 80053; 85025; 86316

== ENCOUNTER → 2024-10-15 13:02 | Outpatient (REF) | payer OTHER, SELFPAY ==
[2024-10-15 15:41] LABS: % Basophils 0.8 % (0-2); % Eosinophils 4.3 % (0-6); % Immature Granulocytes 0.3 % (0-0.5); % Lymphocytes 26.6 % (20.5-51.1); % Monocytes 7.6 % (1.7-9.3); % Neutrophils 60.4 % (42.2-75.2); Absolute Eosinophils 0.2 10^3/uL (0-0.7); Absolute Lymphocytes 1.1 10^3/uL (1.2-3.4); Absolute Monocytes 0.3 10^3/uL (0.1-0.6); Absolute Neutrophils 2.4 10^3/uL (1.4-6.5); Hematocrit 34.6 % (37.0-47.0); Hemoglobin 11.8 g/dL (12.0-16.0); Mean Corp Hgb Conc. 34.1 g/dL (33.0-37.0); Mean Corpuscular Hgb 34.1 pg (27.0-31.0); Mean Platelet Volume 11.6 fL (7.4-10.4); Nucleated Red Blood Cells % 0 %; Platelet Count 179 10^3/uL (130-400); Red Blood Cell Count 3.46 10^6/uL (4.20-5.40); Red Cell Dist. Width 14.3 % (11.5-14.5)
[2024-10-15 15:55] LABS: ALT (SGPT) 28 U/L (0-35); AST (SGOT) 31 U/L (14-36); Albumin 4.4 g/dl (3.5-5.0); Alkaline Phosphatase 111 U/L (38-126); Blood Urea Nitrogen 17 mg/dl (7-17); Calcium 9.4 mg/dl (8.4-10.2); Carbon Dioxide 26 mmol/L (22-30); Chloride 103 mmol/L (98-107); Glucose 114 mg/dl (70-99); Iron 81 ug/dl (37-170); Potassium 4.7 mmol/L (3.5-5.1); Sodium 138 mmol/L (135-145); Total Bilirubin 0.5 mg/dl (0.2-1.3); Total Protein 7.7 g/dl (6.3-8.2); eGFR 57.17
[2024-10-15 16:04] LABS: Percent Saturation 35 % (20-50); Total Iron Binding Capacity 229 ug/dl (265-497)
== END ==
LOC: HWLAB 13:02
PROVIDERS: ATTENDING PHYSICIAN Nurse Practitioner Adult Health; FAMILY PHYSICIAN Internal Medicine; OTHER PHYSICIAN Internal Medicine Medical Oncology; REFERRING PHYSICIAN Internal Medicine Hematology & Oncology
DX: C20 Malignant neoplasm of rectum (principal); D70.9 Neutropenia, unspecified; G62.0 Drug-induced polyneuropathy; E34.00 Carcinoid syndrome, unspecified; C78.7 Secondary malignant neoplasm of liver and intrahepatic bile duct
CPT/HCPCS: 36415; 80053; 82728; 83540; 83550; 85025; 86316

== ENCOUNTER → 2024-11-10 13:17 | Outpatient (REF) | payer OTHER, SELFPAY ==
[2024-11-10 16:06] LABS: Hematocrit 29.5 % (37.0-47.0); Hemoglobin 9.7 g/dL (12.0-16.0); Mean Corp Hgb Conc. 32.9 g/dL (33.0-37.0); Mean Corpuscular Volume 102.1 fL (81.0-99.0); Nucleated Red Blood Cells % 0 %; Platelet Count 132 10^3/uL (130-400); Red Cell Dist. Width 14.3 % (11.5-14.5)
[2024-11-10 16:15] LABS: ALT (SGPT) 23 U/L (0-35); AST (SGOT) 26 U/L (14-36); Albumin 4.1 g/dl (3.5-5.0); Alkaline Phosphatase 67 U/L (38-126); Blood Urea Nitrogen 17 mg/dl (7-17); Calcium 9.0 mg/dl (8.4-10.2); Carbon Dioxide 28 mmol/L (22-30); Chloride 103 mmol/L (98-107); Glucose 112 mg/dl (70-99); Potassium 4.2 mmol/L (3.5-5.1); Sodium 136 mmol/L (135-145); Total Protein 7.0 g/dl (6.3-8.2); eGFR 56.81
[2024-11-10 16:44] LABS: TSH 1.45 uIU/ml (0.47-4.68)
== END ==
LOC: HWLAB 13:17
PROVIDERS: ATTENDING PHYSICIAN Internal Medicine Hematology & Oncology; FAMILY PHYSICIAN Internal Medicine; REFERRING PHYSICIAN Internal Medicine Medical Oncology
DX: C20 Malignant neoplasm of rectum (principal); D70.9 Neutropenia, unspecified; G62.0 Drug-induced polyneuropathy; E34.00 Carcinoid syndrome, unspecified; C78.7 Secondary malignant neoplasm of liver and intrahepatic bile duct
CPT/HCPCS: 36415; 80053; 84443; 85025; 86316

== ENCOUNTER → 2024-12-08 12:32 | Outpatient (REF) | payer OTHER, SELFPAY ==
[2024-12-08 15:59] LABS: Hematocrit 32.9 % (37.0-47.0); Hemoglobin 10.8 g/dL (12.0-16.0); Mean Corp Hgb Conc. 32.8 g/dL (33.0-37.0); Mean Corpuscular Volume 103.1 fL (81.0-99.0); Nucleated Red Blood Cells % 0 %; Platelet Count 154 10^3/uL (130-400); Red Cell Dist. Width 13.2 % (11.5-14.5)
[2024-12-08 16:09] LABS: ALT (SGPT) 40 U/L (0-35); AST (SGOT) 32 U/L (14-36); Albumin 4.3 g/dl (3.5-5.0); Alkaline Phosphatase 83 U/L (38-126); Blood Urea Nitrogen 16 mg/dl (7-17); Calcium 9.6 mg/dl (8.4-10.2); Carbon Dioxide 27 mmol/L (22-30); Chloride 102 mmol/L (98-107); Glucose 129 mg/dl (70-99); Potassium 4.0 mmol/L (3.5-5.1); Sodium 137 mmol/L (135-145); Total Protein 7.5 g/dl (6.3-8.2); eGFR > 60.00
== END ==
LOC: HWLAB 12:32
PROVIDERS: ATTENDING PHYSICIAN Internal Medicine Hematology & Oncology; FAMILY PHYSICIAN Internal Medicine; REFERRING PHYSICIAN Internal Medicine Medical Oncology
DX: C20 Malignant neoplasm of rectum (principal); D70.9 Neutropenia, unspecified; G62.0 Drug-induced polyneuropathy; E34.00 Carcinoid syndrome, unspecified; C78.7 Secondary malignant neoplasm of liver and intrahepatic bile duct
CPT/HCPCS: 36415; 80053; 85025; 86316

== ENCOUNTER 2024-12-20 19:09 | Emergency (ER) | payer OTHER, SELFPAY ==
[2024-12-20 19:19] VITALS: BP 146/90
[2024-12-20 19:40] LABS: Hematocrit 30.1 % (37.0-47.0); Hemoglobin 10.1 g/dL (12.0-16.0); Mean Corp Hgb Conc. 33.6 g/dL (33.0-37.0); Mean Corpuscular Volume 99.3 fL (81.0-99.0); Nucleated Red Blood Cells % 0 %; Platelet Count 151 10^3/uL (130-400); Red Cell Dist. Width 13.2 % (11.5-14.5)
[2024-12-20 20:06] LABS: ALT (SGPT) 32 U/L (0-35); AST (SGOT) 33 U/L (14-36); Albumin 4.4 g/dl (3.5-5.0); Alkaline Phosphatase 86 U/L (38-126); Blood Urea Nitrogen 14 mg/dl (7-17); Calcium 8.9 mg/dl (8.4-10.2); Carbon Dioxide 26 mmol/L (22-30); Chloride 95 mmol/L (98-107); Glucose 109 mg/dl (70-99); Lipase 14 U/L (23-300); Potassium 4.2 mmol/L (3.5-5.1); Sodium 129 mmol/L (135-145); Total Protein 7.5 g/dl (6.3-8.2); eGFR > 60.00
--- NOTE | 2024-12-20 22:57 | ED.GENMED ---
History of Present Illness
General
Chief Complaint: Abdominal Symptoms
Source: patient
Exam Limitations: none
Time Seen by Provider: 12/20/24 22:16
History of Present Illness
History of Present Illness:
Patient with known pancreatic CA and metastasis presents with ongoing abdominal issues of bloating distention decreased output through her colostomy at times. This been going on for a month. She came in now out of a recommendation from a nurse
that keeps in contact with her. No acute symptoms. She currently uses MiraLAX Colace. She has mag citrate at home
Past History
Past History
ED Past Medical History: Asthma, Cancer (Rectal CA), Hypothyroidism, Psychiatric (Anxiety, Depression, ) and Other (rectal ca, s/p resection, last chemo 08/2014. Migraines, Alcoholic hepatitis, Cellulitis, )
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 This has come apart and now there is chronic ' space' that gets
abscessed intermittently. Last drainage and sigmoid debridement one week ago. Scheduled for surgery 11/17 for reverse ileostomy, permanent colostomy, clean up of fistula, muscle graaft to close space.)
Social History
Tobacco: Vaping
Alcohol: Former (Sober for 22 years)
Drug: None
Personal: Single
Living: alone
Review of Systems
Review of Systems
All Other Systems: Not applicable
Constitutional: Denies fever or chills
Respiratory: Reports no symptoms
Cardiac: Reports no symptoms
Phy Exam
Physical Exam
Physical Exam:
GENERAL: Alert and oriented in no apparent distress
EYE: Orbits normal.
CARDIAC: Regular rate and rhythm without any obvious murmurs.
LUNGS: Clear breath sounds,normal
ABDOMEN: Mildly distended. Bowel sounds present. Colostomy in place with stool in the colostomy. Periumbilical hernia easily reducible. Old scars. No focal tenderness
NEUROLOGICAL: Alert and oriented , grossly non-focal
SKIN: Warm and dry, no rash or lesion, no discoloration, skin intact.
MUSCULOSKELETAL: No edema,no deformity.Good color
PSYCH: Normal and appropriate interaction.
Course
Orders/Labs/Results
Orders:
Orders
12/20/24 19:24
Obstruct Series W/PA Chest [CR Obstruct Series W/pa Chest] Urgent
Comment:
Reason For Exam: constipation
12/20/24 19:27
Complete Blood Count/With Diff Urgent
12/20/24 19:28
Comprehensive Metabolic Panel Urgent
Lipase Urgent
Abnormal Lab Results
12/20/24 12/20/24
19:28
WBC 3.9 L 10^3/uL
(4.8-10.8)
RBC 3.03 L 10^6/uL
(4.20-5.40)
Hgb 10.1 L g/dL
(12.0-16.0)
Hct 30.1 L %
(37.0-47.0)
MCV 99.3 H fL
(81.0-99.0)
MCH 33.3 H pg
(27.0-31.0)
MPV 10.9 H fL
(7.4-10.4)
Absolute Lymphs (auto) 0.7 L 10^3/uL
(1.2-3.4)
Lymphocytes % 16.9 L %
(20.5-51.1)
Sodium 129 L mmol/L
(135-145)
Chloride 95 L mmol/L
(98-107)
Glucose 109 H mg/dl
(70-99)
Lipase 14 L U/L
(23-300)
12/20/24 19:27
12/20/24 19:28
Vital Signs
Initial and Last Documented VS:
Initial Vital Signs
Temp Pulse Resp BP Pulse Ox
98.5 F 101 16 146/90 98
12/20/24 19:19 12/20/24 19:19 12/20/24 19:19 12/20/24 19:19 12/20/24 19:19
Last Documented Vital Signs
Temp Pulse Resp BP Pulse Ox
98.5 F 101 16 146/90 98
12/20/24 19:19 12/20/24 19:19 12/20/24 19:19 12/20/24 19:19 12/20/24 23:00
*Radiology
Radiology exam reviewed: radiology read reviewed (Subtle density suggesting pulmonary mets disease. Moderate to large amount of stool. Multiple air-fluid levels)
*Pulse Oximetry
SaO2: 98
Oxygen Mode of Delivery: Room air
Patient hypoxic: no
*Critical Care Note
Total Time (30-74mins, 75-104mins- exclusive of procedures): Not Applicable
Data Reviewed
Review of Other/Old Records Reveals: Labs, Records and Testing
ED Attending Note
-
Portions of this chart may have been created with voice recognition software.� Occasional wrong word or��sound alike� substitutions may have occurred due to the inherent limitations of voice recognition software.
Discharge Plan
Departure
Patient Disposition: Home (Routine Discharge)
Date of Disposition: 12/20/24
Time of Disposition: 22:59
Patient with high blood pressure during this ER visit?: Yes
Discharge Problem:
Progressive constipation, Known metastatic pancreatic CA, Very mild hyponatremia
Instructions: Constipation, Adult (DC), Hyponatremia, BLOOD PRESSURE
Prescriptions:
No Action
losartan 50 MG tablet
100 mg PO DAILY
cyclobenzaprine 10 MG tablet
10 mg PO DAILY
Patient Comments:
takes up to 3/day
rizatriptan 10 MG tablet
10 mg PO PRN PRN (Reason: migraine)
gabapentin 400 MG capsule
1,200 mg PO BID
Patient Comments:
patient takes 3 times per day
amlodipine 2.5 MG tablet
2.5 mg PO DAILY
levothyroxine 100 MCG tablet
100 mcg PO DAILY
trazodone 150 MG tablet
150 mg PO HS
omeprazole 20 MG capsule,delayed release(DR/EC)
20 mg PO DAILY
bupropion HCl 200 MG tablet sustained-release 12 hr
300 mg PO DAILY
Patient Comments:
patient states that she took 2 this morning
buprenorphine-naloxone 1 TAB tablet, sublingual
2 mg PO DAILY
Patient Comments:
pt states'sometimes I take 4mg'
cannabidiol [Epidiolex] 1 UNIT solution
albuterol sulfate 2.5 MG/3 ML solution for nebulization
2.5 mg inhalation R Q4HPRN PRN (Reason: wheeze)
dextroamphetamine-amphetamine 10 MG tablet
10 mg PO DAILY
famotidine 20 MG tablet
20 mg PO HS
naproxen 250 MG tablet
1 tab PO Q8HPRN PRN (Reason: pain)
fluticasone propionate [Flovent HFA] 1 PUFF HFA aerosol inhaler
2 puff inhalation R BID PRN (Reason: wheezing)
albuterol sulfate [Proventil HFA] 90 MCG/PUFF HFA aerosol inhaler
1 puff inhalation PRN PRN (Reason: rescue inhaler)
cyclobenzaprine 10 MG tablet
10 mg PO HS
cetirizine 10 MG tablet
10 mg PO HS
prochlorperazine maleate 5 MG tablet
5 mg PO Q6HPRN PRN (Reason: nausea)
ascorbic acid (vitamin C) [Vitamin C] 500 MG tablet
1,000 mg PO DAILY
magnesium [magnesium gluconate] 200 MG tablet
400 mg PO TID @ 0800,1200,1700
Patient Comments:
with meals
L.acidoph,paracasei,B.animalis 1 EACH capsule
1 ea PO DAILY
cholecalciferol (vitamin D3) 125 MCG tablet,disintegrating
5,000 unit PO DAILY
elderberry fruit and flower 1 EACH capsule
1 ea PO DAILY
Oncovin:
1 tab PO DAILY
cholestyramine (bulk) 5 GM powder
5 gm MC BID
diphenoxylate-atropine 1 TAB tablet
1 tab PO DAILYPRN PRN (Reason: diarrhea)
captopril 12.5 MG tablet
12.5 mg PO DAILY
Referrals:
Felice Lima MD [Family Provider, Internal Medicine]
Activity Restrictions/Additional Instructions:
I would recommend repeating a sodium level in 3 to 4 days
The GI office should call you tomorrow for close follow-up
Interventions
Interventions:
*Nursing Disposition Last Done: 12/20/24 23:34
Discharge Date and Time
Discharge Date/Time: 12/20/24 23:36
Print Language: CITIZEN OF [place]
== END 2024-12-20 23:36 | disposition home or self-care (01) ==
LOC: EMR 19:09
PROVIDERS: Emergency Medicine; EMERGENCY PHYSICIAN Emergency Medicine; FAMILY PHYSICIAN Internal Medicine
DX: K59.00 Constipation, unspecified (principal); C25.9 Malignant neoplasm of pancreas, unspecified; E87.1 Hypo-osmolality and hyponatremia; E03.9 Hypothyroidism, unspecified; J45.909 Unspecified asthma, uncomplicated; F17.290 Nicotine dependence, other tobacco product, uncomplicated; Z85.048 Personal history of other malignant neoplasm of rectum, rectosigmoid junction, and anus; Z93.3 Colostomy status
CPT/HCPCS: 99284; 74022; 80053; 83690; 85025

== ENCOUNTER → 2025-01-04 12:24 | Outpatient (REF) | payer OTHER, SELFPAY ==
[2025-01-04 16:24] LABS: Hematocrit 29.7 % (37.0-47.0); Hemoglobin 10.0 g/dL (12.0-16.0); Mean Corp Hgb Conc. 33.7 g/dL (33.0-37.0); Mean Corpuscular Volume 101.4 fL (81.0-99.0); Nucleated Red Blood Cells % 0 %; Platelet Count 147 10^3/uL (130-400); Red Cell Dist. Width 13.7 % (11.5-14.5)
[2025-01-04 16:42] LABS: ALT (SGPT) 31 U/L (0-35); AST (SGOT) 26 U/L (14-36); Albumin 4.0 g/dl (3.5-5.0); Alkaline Phosphatase 95 U/L (38-126); Blood Urea Nitrogen 16 mg/dl (7-17); Calcium 9.4 mg/dl (8.4-10.2); Carbon Dioxide 29 mmol/L (22-30); Chloride 99 mmol/L (98-107); Glucose 96 mg/dl (70-99); Potassium 4.0 mmol/L (3.5-5.1); Sodium 135 mmol/L (135-145); Total Protein 7.1 g/dl (6.3-8.2); eGFR > 60.00
== END ==
LOC: HWLAB 12:24
PROVIDERS: ATTENDING PHYSICIAN Internal Medicine Hematology & Oncology; FAMILY PHYSICIAN Internal Medicine; REFERRING PHYSICIAN Nuclear Medicine
DX: C20 Malignant neoplasm of rectum (principal); D70.9 Neutropenia, unspecified; G62.0 Drug-induced polyneuropathy; E34.00 Carcinoid syndrome, unspecified; C78.7 Secondary malignant neoplasm of liver and intrahepatic bile duct
CPT/HCPCS: 36415; 80053; 85025; 86316

== ENCOUNTER 2025-01-08 21:21 | Observation (INO) | payer OTHER, SELFPAY ==
[2025-01-08] VITALS (7 sets, daily range): BP systolic 133–170; BP diastolic 79–100; BMI 23.1; BMI 20.2
--- NOTE | 2025-01-08 16:44 | EDRN ---
Charito REBOLLAR in room w/ pt at this time.
--- NOTE | 2025-01-08 16:53 | ED.GENMED ---
History of Present Illness
<Roshan Smart PA-C - Last Filed: 01/08/25 20:22>
General
Chief Complaint: Abdominal Symptoms
Source: patient
Exam Limitations: none
Time Seen by Provider: 01/08/25 16:31
History of Present Illness
History of Present Illness:
64-year-old female with no metastatic pancreatic cancer patient of Dr. Thacker'ramon presents with extreme fatigue over the past 2 days or 3 days. She is accompanied by friends. Friends noted she was not responding to text messages or phone calls so
they did a house visit and found her. The patient was able to get to the door but has not really been able to converse appropriately. They states she is off from her baseline significantly. No known trauma. Patient denies specifically headache
chest pain or abdominal pain. She has a colostomy.
Past History
<Roshan Smart PA-C - Last Filed: 01/08/25 20:22>
Past History
ED Past Medical History: Asthma, Cancer (Rectal CA), Hypothyroidism, Psychiatric (Anxiety, Depression, ) and Other (rectal ca, s/p resection, last chemo 08/2014. Migraines, Alcoholic hepatitis, Cellulitis, )
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 This has come apart and now there is chronic ' space' that gets
abscessed intermittently. Last drainage and sigmoid debridement one week ago. Scheduled for surgery 11/17 for reverse ileostomy, permanent colostomy, clean up of fistula, muscle graaft to close space.)
Social History
Tobacco: Vaping
Alcohol: Former (Sober for 22 years)
Drug: None
Personal: Single
Living: alone
Phy Exam
<Roshan Smart PA-C - Last Filed: 01/08/25 20:22>
Physical Exam
Physical Exam:
General: Unwell appearing female no acute respiratory distress
HEENT: Normal cephalic atraumatic mucosa dry
Heart: Slightly tach but regular
Lungs: Decreased effort of breathing but clear otherwise
Abdomen is soft ostomy present nontender
Extremities: No cyanosis
Neurologic exam: Alert responsive verbal stimuli somewhat somnolent however. No unilateral data
Course
<Roshan Smart PA-C - Last Filed: 01/08/25 20:22>
Orders/Labs/Results
Orders:
Orders
01/08/25 16:51
CT Head W/o Iv Contrast Urgent
Comment:
Reason For Exam: change of mental status
CR Chest - 2 Views Urgent
Comment:
Reason For Exam: fatigue
01/08/25 16:52
Electrocardiogram (*1) Urgent
Reason for Study: Fatigue / Weakness
EKG- Treatment ONCE
01/08/25 17:18
COVID-19 Antigen Urgent
Source: Nasal Swab
Complete Blood Count/With Diff Urgent
Comprehensive Metabolic Panel Urgent
Lactic Acid Q4H
Comment: CANCEL 2nd LACTIC ACID IF 1st LACTIC ACID IS LESS THAN 2
Blood Culture Q30M
PHILL Source: Blood/Venous
Specimen Description:
Influenza A+B Rapid Molecular Urgent
PHILL Source: Nasal Swab
Specimen Description:
01/08/25 17:53
Urinalysis Reflex To Culture Urgent
Date Specimen was Collected: 01/08/25
Time Specimen was Collected: 20:15
01/08/25 18:14
Blood Culture Q30M
PHILL Source: Blood/Venous
Specimen Description:
01/08/25 18:53
0.9% Sodium Chloride 1000 ml [Nss] 1,000 ml IV BOLUS
Abnormal Lab Results
01/08/25
17:18
RBC 3.63 L 10^6/uL
(4.20-5.40)
Hct 35.0 L %
(37.0-47.0)
MCH 34.2 H pg
(27.0-31.0)
MPV 10.9 H fL
(7.4-10.4)
Absolute Lymphs (auto) 0.8 L 10^3/uL
(1.2-3.4)
Lymphocytes % 14.6 L %
(20.5-51.1)
BUN 18 H mg/dl
(7-17)
01/08/25 17:18
01/08/25 17:18
Vital Signs
Initial and Last Documented VS:
Initial Vital Signs
Temp Pulse Resp BP Pulse Ox
98.1 F 114 22 138/100 96
01/08/25 15:48 01/08/25 15:48 01/08/25 15:48 01/08/25 15:48 01/08/25 15:48
Last Documented Vital Signs
Temp Pulse Resp BP Pulse Ox
99 F 85 13 139/79 95
01/08/25 17:03 01/08/25 19:00 01/08/25 19:00 01/08/25 19:00 01/08/25 19:00
<Marc Rico MD - Last Filed: 01/08/25 17:52>
Orders/Labs/Results
Orders:
Orders
01/08/25 16:51
CT Head W/o Iv Contrast Urgent
Comment:
Reason For Exam: change of mental status
CR Chest - 2 Views Urgent
Comment:
Reason For Exam: fatigue
01/08/25 16:52
Electrocardiogram (*1) Urgent
Reason for Study: Fatigue / Weakness
EKG- Treatment ONCE
01/08/25 17:18
COVID-19 Antigen Urgent
Source: Nasal Swab
Complete Blood Count/With Diff Urgent
Comprehensive Metabolic Panel Urgent
Lactic Acid Q4H
Comment: CANCEL 2nd LACTIC ACID IF 1st LACTIC ACID IS LESS THAN 2
Blood Culture Q30M
PHILL Source: Blood/Venous
Specimen Description:
Influenza A+B Rapid Molecular Urgent
PHILL Source: Nasal Swab
Specimen Description:
01/08/25 17:53
Urinalysis Reflex To Culture Urgent
Date Specimen was Collected: 01/08/25
Time Specimen was Collected: 20:15
01/08/25 18:14
Blood Culture Q30M
PHILL Source: Blood/Venous
Specimen Description:
01/08/25 18:53
0.9% Sodium Chloride 1000 ml [Nss] 1,000 ml IV BOLUS
Abnormal Lab Results
01/08/25
17:18
RBC 3.63 L 10^6/uL
(4.20-5.40)
Hct 35.0 L %
(37.0-47.0)
MCH 34.2 H pg
(27.0-31.0)
MPV 10.9 H fL
(7.4-10.4)
Absolute Lymphs (auto) 0.8 L 10^3/uL
(1.2-3.4)
Lymphocytes % 14.6 L %
(20.5-51.1)
BUN 18 H mg/dl
(7-17)
01/08/25 17:18
01/08/25 17:18
Vital Signs
Initial and Last Documented VS:
Initial Vital Signs
Temp Pulse Resp BP Pulse Ox
98.1 F 114 22 138/100 96
01/08/25 15:48 01/08/25 15:48 01/08/25 15:48 01/08/25 15:48 01/08/25 15:48
Last Documented Vital Signs
Temp Pulse Resp BP Pulse Ox
99 F 85 13 139/79 95
01/08/25 17:03 01/08/25 19:00 01/08/25 19:00 01/08/25 19:00 01/08/25 19:00
<Roshan Smart PA-C - Last Filed: 01/08/25 20:22>
MDM/Problems Addressed
Differential Diagnosis Includes:
Fatigue. Consider infectious course versus worsening underlying disease versus electrolyte abnormality or metastatic issues to the brain.
Start broad workup with labs blood cultures lactic acid CT head chest x-ray COVID and flu test
<Roshan Smart PA-C - Last Filed: 01/08/25 20:22>
*Pulse Oximetry
SaO2: 96
Oxygen Mode of Delivery: Room air
Patient hypoxic: no
*Critical Care Note
Total Time (30-74mins, 75-104mins- exclusive of procedures): Not Applicable
<Roshan Smart PA-C - Last Filed: 01/08/25 20:22>
Update Note
Update Note:
EKG shows sinus rhythm with a rate of 98 no ischemic changes
Workup here overall unremarkable with negative CT of head, chest x-ray COVID and flu test. Labs reviewed without significant electrolyte abnormality or anemia. Discussed with emergency room attending who saw the patient. Patient is metastatic
cancer patient with decline and failure to thrive. Lives by herself. Not a safe discharge will admit for further evaluation
ED Attending Note
<Roshan Smart PA-C - Last Filed: 01/08/25 20:22>
-
Portions of this chart may have been created with voice recognition software.� Occasional wrong word or��sound alike� substitutions may have occurred due to the inherent limitations of voice recognition software.
<Marc Rico MD - Last Filed: 01/08/25 17:52>
ED Attending Note
Patient seen and examined by attending physician: Yes
ED Attending Note:
I have seen and evaluated the patient with a [id number] encounter. I have spoken to the advance practicer provider and involved in the medical history, the physical exam, medical decision making.
Evaluation and management service: agree unless noted differently below.
Results interpretation: agree unless noted differently below.
Focused HPI: 64-year-old female with history as noted presents to the ER for evaluation of extreme generalized weakness and multiple other complaints. Friend at bedside helps with some collateral history�apparently yesterday patient was not
responding to phone calls which is unusual for her, today someone went to check on her and found that she was extremely lethargic and appeared to be confused. Patient says that she feels very weak. She says she has a mild headache and has had some
nausea. She says that she does not think she has been vomiting. It sounds like he has been dealing with some constipation recently. No recent cough or breathing issues reported.
Physical exam: Patient appears chronically ill but is alert and answering simple questions. She is mildly hypertensive, tachycardic, tachypneic. She has no cardiac rubs gallops or murmurs. Lungs generally clear without focal wheezing or rales
appreciated. Her abdomen is soft, nondistended and no apparent tenderness. Cranial nerves are intact; generally weak throughout but strength is symmetric and there is no focal weakness or numbness on exam. She has good pulses throughout.
Medical Decision Makin-year-old female presents with generalized weakness and confusion in the setting of known pancreatic cancer. Vitals and exam as above. Will check labs including CBC and CMP, lactate and blood cultures, viral swabs. Will
check CT of the head. Check an EKG. Monitor closely reassess after the above.
Discharge Plan
Departure
Patient Disposition: Admit
Date of Disposition: 01/08/25
Time of Disposition: 20:22
Presentation/result/management discussed w/ accepting MD/DO: Hospitalist
Discharge Problem:
Weakness
Prescriptions:
No Action
losartan 50 MG tablet
100 mg PO DAILY
cyclobenzaprine 10 MG tablet
10 mg PO DAILY
Patient Comments:
takes up to 3/day
rizatriptan 10 MG tablet
10 mg PO PRN PRN (Reason: migraine)
gabapentin 400 MG capsule
1,200 mg PO BID
Patient Comments:
patient takes 3 times per day
amlodipine 2.5 MG tablet
2.5 mg PO DAILY
levothyroxine 100 MCG tablet
100 mcg PO DAILY
trazodone 150 MG tablet
150 mg PO HS
omeprazole 20 MG capsule,delayed release(DR/EC)
20 mg PO DAILY
bupropion HCl 200 MG tablet sustained-release 12 hr
300 mg PO DAILY
Patient Comments:
patient states that she took 2 this morning
buprenorphine-naloxone 1 TAB tablet, sublingual
2 mg PO DAILY
Patient Comments:
pt states'sometimes I take 4mg'
cannabidiol [Epidiolex] 1 UNIT solution
albuterol sulfate 2.5 MG/3 ML solution for nebulization
2.5 mg inhalation R Q4HPRN PRN (Reason: wheeze)
dextroamphetamine-amphetamine 10 MG tablet
10 mg PO DAILY
famotidine 20 MG tablet
20 mg PO HS
naproxen 250 MG tablet
1 tab PO Q8HPRN PRN (Reason: pain)
fluticasone propionate [Flovent HFA] 1 PUFF HFA aerosol inhaler
2 puff inhalation R BID PRN (Reason: wheezing)
albuterol sulfate [Proventil HFA] 90 MCG/PUFF HFA aerosol inhaler
1 puff inhalation PRN PRN (Reason: rescue inhaler)
cyclobenzaprine 10 MG tablet
10 mg PO HS
cetirizine 10 MG tablet
10 mg PO HS
prochlorperazine maleate 5 MG tablet
5 mg PO Q6HPRN PRN (Reason: nausea)
ascorbic acid (vitamin C) [Vitamin C] 500 MG tablet
1,000 mg PO DAILY
magnesium [magnesium gluconate] 200 MG tablet
400 mg PO TID @ 0800,1200,1700
Patient Comments:
with meals
L.acidoph,paracasei,B.animalis 1 EACH capsule
1 ea PO DAILY
cholecalciferol (vitamin D3) 125 MCG tablet,disintegrating
5,000 unit PO DAILY
elderberry fruit and flower 1 EACH capsule
1 ea PO DAILY
Oncovin:
1 tab PO DAILY
cholestyramine (bulk) 5 GM powder
5 gm MC BID
diphenoxylate-atropine 1 TAB tablet
1 tab PO DAILYPRN PRN (Reason: diarrhea)
captopril 12.5 MG tablet
12.5 mg PO DAILY
Referrals:
Che Bridges MD [Family Provider, Internal Medicine]
Interventions
Interventions:
*Risk Screen - Suicide Last Done: 01/08/25 15:53
*General Assessment Last Done: 01/08/25 18:45
*Neglect/Abuse Screening Last Done: 01/08/25 15:53
*ED- Fall Risk Assessment Last Done: 01/08/25 18:45
*ED COVID-19 Vaccine History Last Done: 01/08/25 18:45
EI-Fvybll-Qzjavjdmkd Assessment Last Done: 01/08/25 17:25
Discharge Date and Time
Print Language: KYRGYZ
--- NOTE | 2025-01-08 17:20 | EDRN ---
Dr. Rico in room w/ pt at this time
[2025-01-08 17:43] LABS: Hematocrit 35.0 % (37.0-47.0); Hemoglobin 12.4 g/dL (12.0-16.0); Mean Corp Hgb Conc. 35.4 g/dL (33.0-37.0); Mean Corpuscular Volume 96.4 fL (81.0-99.0); Nucleated Red Blood Cells % 0 %; Platelet Count 183 10^3/uL (130-400); Red Cell Dist. Width 12.9 % (11.5-14.5)
[2025-01-08 18:03] LABS: COVID-19 Antigen Negative (Negative)
[2025-01-08 18:16] LABS: ALT (SGPT) 34 U/L (0-35); AST (SGOT) 30 U/L (14-36); Albumin 4.3 g/dl (3.5-5.0); Alkaline Phosphatase 102 U/L (38-126); Blood Urea Nitrogen 18 mg/dl (7-17); Calcium 9.4 mg/dl (8.4-10.2); Carbon Dioxide 26 mmol/L (22-30); Chloride 103 mmol/L (98-107); Glucose 97 mg/dl (70-99); Potassium 4.0 mmol/L (3.5-5.1); Sodium 138 mmol/L (135-145); Total Protein 7.9 g/dl (6.3-8.2); eGFR > 60.00
[2025-01-08] MEDS: NSS 1000 IV (19:08)
[2025-01-08 20:36] LABS: Urine Character Clear (Clear)
--- NOTE | 2025-01-08 20:51 | HPS.HSE ---
Family Physician
-
Family Physician: Che Bridges
Chief Complaint
-
Generalized weakness
History of Present Illness
Unfortunate 64-year-old female with known history of colon and pancreatic cancer was pancreatic cancer diagnosed couple months ago she did not start treatment yet, also hypertension and status post bowel resection and have a colostomy, presented to
the hospital after found by some of the friend very weak and lousy and lethargic at home. According to the friend at the bedside after patient gives her permission to talk to her in front of her, according to the friend she did not see almost a
week and usually she is very awake, alert and oriented and responsive she texted her yesterday few times she responded well as well today she had some of the friend they texted she was not responding eventually when this friend went over to check on
her they found him very weak and lousy and lethargic, she feels tired, admits not eating, drinking or sleeping well, and a lot of question when you ask she have no recollection, denies any syncope or fall or accident. And she was unsure if she was
taking extra medication as she is on a multiple medication can make you weak and lousy and lethargic, denies fever, chills or cough or congestion admitted exertional shortness of breath. Complain of back and abdominal pain. Which moderate in
nature but her buprenorphine do not help her out. She does not know the dose of her medication but she has a list which was reconciled by our pharmacy.
Workup in the ER inconclusive at this stage.
Medical History
Past Medical History
Past Medical History: Reports Other
Additional Past Medical History:
Past medical history:
History of colorectal cancer many years ago
Patient diagnosed with pancreatic cancer and started treatment
History of alcohol abuse in the past but been sober for 25 years
Anxiety mood disorder
Insomnia
GERD
Hypertension
Asthma migraines
Degenerative joint arthritis
Peripheral neuropathy
Chronic fatigue and pain syndrome on narcotic
PTSD
Surgical history:
Multiple colonoscopies
Colostomy and colon resection C5-6 fusion
ORIF humeral fracture
Social history: Lives alone in friends checking on her regularly, denies smoking and no alcohol drinking 25-year and no drug.
Family history: Reviewed and noncontributory
Past Surgical History: Reports Other
Social History
Unable to obtain full social history at this time due to: Other
Family History
Family History: Other
Allergies / Home Medications
Allergies reflects when Allergies were last updated in [facility].
Home Medications with original date entered in [facility]
Allergy/Medication List:
Allergies
Allergy/AdvReac Type Severity Reaction Status Date / Time
fluconazole (From Diflucan) Allergy Hives Verified 01/08/25 15:53
morphine Allergy VOMITING Verified 01/08/25 15:53
bees/wasps Allergy Anaphylaxis Uncoded 01/08/25 15:53
environmental Allergy asthma Uncoded 01/08/25 15:53
Home Medications
amlodipine 2.5 mg tablet 2.5 mg PO DAILY 01/06/19
buprenorphine 2 mg-naloxone 0.5 mg sublingual tablet 2 mg PO DAILY 01/06/19
bupropion HCl 200 mg tablet,12 hr sustained-release 300 mg PO DAILY 01/06/19
cannabidiol 100 mg/mL oral solution (Epidiolex) 01/06/19
cyclobenzaprine 10 mg tablet 10 mg PO DAILY 01/06/19
gabapentin 400 mg capsule 1,200 mg PO BID 01/06/19
levothyroxine 100 mcg tablet 100 mcg PO DAILY 01/06/19
losartan 50 mg tablet 100 mg PO DAILY 01/06/19
omeprazole 20 mg capsule,delayed release 20 mg PO DAILY 01/06/19
rizatriptan 10 mg tablet 10 mg PO PRN PRN migraine 01/06/19
trazodone 150 mg tablet 150 mg PO HS 01/06/19
albuterol sulfate 2.5 mg/3 mL (0.083 %) solution for nebulization 2.5 mg inhalation R Q4HPRN PRN wheeze 02/09/19
dextroamphetamine-amphetamine 10 mg tablet 10 mg PO DAILY 02/09/19
famotidine 20 mg tablet 20 mg PO HS 02/09/19
albuterol sulfate 90 mcg/actuation aerosol inhaler (Proventil HFA) 1 puff inhalation PRN PRN rescue inhaler 02/25/19
fluticasone propionate 44 mcg/actuation HFA aerosol inhaler (Flovent HFA) 2 puff inhalation R BID PRN wheezing 02/25/19
naproxen 250 mg tablet 1 tab PO Q8HPRN PRN pain 02/25/19
Oncovin: 1 tab PO DAILY 10/25/19
ascorbic acid (vitamin C) 500 mg tablet (Vitamin C) 1,000 mg PO DAILY 10/25/19
cetirizine 10 mg tablet 10 mg PO HS 10/25/19
cholecalciferol (vitamin D3) 125 mcg (5,000 unit) disintegrating tablet 5,000 unit PO DAILY 10/25/19
cyclobenzaprine 10 mg tablet 10 mg PO HS 10/25/19
prochlorperazine maleate 5 mg tablet 5 mg PO Q6HPRN PRN nausea 10/25/19
captopril 12.5 mg tablet 12.5 mg PO DAILY 07/26/21
cholestyramine (bulk) 5 gm MC BID 07/26/21
diphenoxylate-atropine 2.5 mg-0.025 mg tablet 1 tab PO DAILYPRN PRN diarrhea 07/26/21
Review of Systems
-
A 12 point ROS was completed and negative except as noted: Yes
Physical Exam
Vital Signs
Vital Signs
Temp Pulse Resp BP Pulse Ox
99 F 85 13 139/79 95
01/08/25 17:03 01/08/25 19:00 01/08/25 19:00 01/08/25 19:00 01/08/25 19:00
physical exam:
General: Awake, , Lethargic but oriented x3, Mild cognitive decline appreciated, in distress and holds appropriate conversation.
HEENT: No active discharge, ecchymosis or bruising, dry lips, tongue and mucous membrane.
Eyes: No discharge or red conjunctiva, no nystagmus, pupils are reactive and equal
Neck:Supple, no JVD no bruit no goiter.
Respiratory: Normal AP contour and diameter, normal chest wall movement, normal respiratory effort, no respiratory distress,
Lungs: Good air entry bilaterally, no wheezing or rhonchi, no rales or crackles
Heart: S1, S2 regular, normal rate, no added sound.
Gastrointestinal: Colostomy present in the bag containing soft stool,Positive bowel sounds, soft, Mild epigastric tenderness, no guarding or rigidity or organomegaly
Musculoskeletal: , no chest wall abnormality or tenderness. All joints and extremities have good range of motion, no muscle tenderness or any joint swelling or tenderness.
Extremities: Mild lower extreme pitting edema, good peripheral pulses, good range of motion
Skin: Warm and dry, no ulceration, normal color. normal sensory and motor function
Psychiatric: Normal mood, normal thought and judgment, Looks down, and has flat affect,
Physical Exam
General: Other
Laboratory Results
-
01/08/25 17:18
01/08/25 17:18
Laboratory Results
Lactic Acid Cancelled 01/08/25 21:00
Total Bilirubin 0.7 mg/dl (0.2-1.3) 01/08/25 17:18
AST 30 U/L (14-36) 01/08/25 17:18
ALT 34 U/L (0-35) 01/08/25 17:18
Alkaline Phosphatase 102 U/L (38-126) 01/08/25 17:18
CXR:Subtle bilateral pulmonary nodules, which is likely due to pulmonary metastatic disease
CT head: No acute intracranial abnormality
Data Reviewed
-
Diagnostic Radiology: Image Personally Visualized and interpreted and Report Reviewed by me
Medical Tests (Nuc Med, Echo, EKG etc): Image Personally Visualized and interpreted, Report Reviewed by me and Discussed with Patient
Lab Data: Labs Reviewed by me and Discussed with Patient
Old Records: Reviewed
Impression/Plan
-
IMPRESSION:
Unfortunate 64-year-old female with history of colon cancer diagnosed many years ago and recent diagnosis of pancreatic cancer 2 months ago while did not start treatment yet, presented to the hospital after found by friend he is very weak and lousy
and lethargic workup is negative for acute abnormalities and dehydration not sure if this is polypharmacy and poor oral intake related.
Encephalopathy:
So far no clear causes, dehydration, poor oral intake while infectious causes are a possibility but so far workup is negative I will get a blood culture
Polypharmacy may be another possibility
I will decrease some of the doses of medication as discussed with the patient including gabapentin decreased to 600 twice daily from 1200, hold tonight's dose of Flexeril
Decrease trazodone to 200 tonight
Any the patient and the friends aware if she took extra dose of any medication
IV fluid
PT OT to assess functional status, may need home visiting nurse all placement as may not be safe going home.
Pancreatic cancer:
Recently diagnosed follows oncology and planning chemo in 2-week
Asthma:
With no evidence exacerbations while short of breath
Continue her home dose of albuterol and inhaler.
Hypertension:
Pressure on the high side not sure if she is taking her blood pressure medication neither she or her friend
Continue home medication
Add hydralazine as needed
Monitor vital sign
Insomnia: On trazodone with a decrease the dose from 150-100 for now
Peripheral neuropathy: On gabapentin and decrease the dose to half or 600 twice daily from 1200 twice daily.
All discussed with the patient and the friend in detail and expressed understanding of the question answered
CODE STATUS discussed with the patient and she will be DNR/DNI
DVT prophylaxis Lovenox
[2025-01-08 20:55] LABS: Urine Red Blood Cell 50-60 /HPF (0-2)
[2025-01-08] MEDS: ZOFRAN 4 MG IV (23:00)
[2025-01-08] MEDS: D5LR 1000 IV (23:01)
[2025-01-08] MEDS: PEPCID PO (23:02)
[2025-01-08] MEDS: PEPCID 20 MG PO (23:10)
[2025-01-08] MEDS: DESYREL PO (23:10)
[2025-01-09] VITALS (7 sets, daily range): BP systolic 109–174; BP diastolic 73–103; PULSE 73–116; O2SAT 98
[2025-01-09] MEDS: TORADOL 15 MG IV (00:32)
[2025-01-09] MEDS: SYNTHROID 100 MCG PO (06:00)
[2025-01-09 08:35] LABS: Hematocrit 32.7 % (37.0-47.0); Hemoglobin 11.5 g/dL (12.0-16.0); Mean Corp Hgb Conc. 35.2 g/dL (33.0-37.0); Mean Corpuscular Volume 96.7 fL (81.0-99.0); Platelet Count 149 10^3/uL (130-400); Red Cell Dist. Width 12.8 % (11.5-14.5)
[2025-01-09 08:57] LABS: Blood Urea Nitrogen 15 mg/dl (7-17); Calcium 9.0 mg/dl (8.4-10.2); Carbon Dioxide 29 mmol/L (22-30); Chloride 103 mmol/L (98-107); Estimated Creatinine Clearance 72 ml/min; Glucose 117 mg/dl (70-99); Magnesium 1.9 mg/dl (1.6-2.3); Potassium 3.6 mmol/L (3.5-5.1); Sodium 140 mmol/L (135-145); eGFR > 60.00
[2025-01-09] MEDS: ZOFRAN 4 MG IV (09:15)
[2025-01-09] MEDS: FLUSH (NSS) 2 FLUSH IV (09:15)
[2025-01-09 09:26] LABS: TSH 0.65 uIU/ml (0.47-4.68)
[2025-01-09 09:45] LABS: Vitamin B12 433 pg/ml (239-931)
[2025-01-09] MEDS: COMPAZINE 10 MG IV ×2 (10:58→23:11)
--- NOTE | 2025-01-09 12:20 | W.PN.HOSP.TC ---
Addendum entered and electronically signed by Dionte Moreno MD 01/09/25 17:09:
Abdominal series with constipation. Start MiraLAX, Colace
Original Note:
Today's Communication/Plan
-
Monitor vitals
See plan
Get outpatient records from [facility]
PT/OT
Continue fluids
Monitor orthostatics, teds
Assessment / Plan
Assessment / Plan
General: Awake, no acute distress
HEENT: Anicteric, pink conjunctiva
Respiratory: Normal AP contour and diameter, normal chest wall movement, normal respiratory effort, no respiratory distress,
Lungs: Good air entry bilaterally, no wheezing
Heart: S1, S2 regular, normal rate
Gastrointestinal: Colostomy present in the bag containing soft stool,Positive bowel sounds, soft
Extremities: Mild lower extreme pitting edema
Psychiatric: Normal mood
Metabolic encephalopathy suspect secondary to deconditioning and dehydration and possibility of polypharmacy
So far no clear causes, dehydration, poor oral intake while infectious causes are a possibility but so far workup is negative, blood culture pending
Polypharmacy may be another possibility
I will decrease some of the doses of medication as discussed with the patient including gabapentin decreased to 600 twice daily from 1200,
Decrease trazodone to 100 from 150
IV fluid
PT OT to assess functional status, may need home visiting nurse all placement as may not be safe going home
Also monitor Flexeril, might need to decrease
History of pancreatic cancer with metastases
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
Concomitant carcinoid syndrome
Follows up with Dr. Moulton from [facility]; requested records
also follows up with Dr Thacker; if symptoms do not improve then consider oncology eval for discussion regarding her malignancy as i believe majority of her fatigue is from deconditioning secondary to malignancy
Check abdominal series
Orthostatic hypotension
Teds
Continue with fluids
TSH with reflex to free T4, cortisol in a.m.
Asthma:
With no evidence exacerbations while short of breath
Continue her home dose of albuterol and inhaler.
Hypertension:
Pressure on the high side not sure if she is taking her blood pressure medication neither she or her friend
Continue home medication
Add hydralazine as needed
Monitor vital sign
Hypothyroidism
Check TSH with free T4
Continue Synthroid
Insomnia: On trazodone with a decrease the dose from 150-100 for now
Peripheral neuropathy: On gabapentin and decrease the dose to half or 600 twice daily from 1200 twice daily.
All discussed with the patient and the friend in detail and expressed understanding of the question answered
CODE STATUS discussed with the patient and she will be DNR/DNI
DVT prophylaxis Lovenox
I spent a total of 54 minutes with the patient or on the floor. More than 50% of this time involved counseling and coordination of care.
Anticipated Discharge: 24 - 48 hours
Subjective/Interval History
-
Date of Service: January 09, 2025
has nausea
Objective Data
-
Labs:
Laboratory Results
01/09/25
08:05
WBC 5.1
Hgb 11.5 L
Hct 32.7 L
Plt Count 149
Sodium 140
Potassium 3.6
Chloride 103
Carbon Dioxide 29
BUN 15
Creatinine 0.7
Glucose 117 H
Calcium 9.0
Vital Signs:
Vital Signs
Temp Pulse Resp BP Pulse Ox
97.5 F 99 16 143/93 100
01/09/25 07:30 01/09/25 07:30 01/09/25 07:30 01/09/25 07:30 01/09/25 07:30
I&O
01/08/25 01/09/25 01/10/25
06:59 06:59 06:59
Intake Total 1120 / 1120
Balance 1120 / 1120
--- NOTE | 2025-01-09 12:45 | PTCARENOTE ---
Addendum entered by Lyndsey Dunbar 01/09/25 14:41:
BP supine at 1330, 113/73, HR 98. Pt resting comfortably.
Original Note:
Placed TEDs on pt and orthostatic vital signs completed at 1130. Pt was unable to stand to do the BP due to dizziness. Supine- BP 174/103, HR 76, Sitting- 140/102, HR 104. Pt attempting to eat now before am meds as feeling nauseous this morning.
Made Dr. Moreno aware of dizziness and orthostatic BP results. Dr. Moreno wants BP meds held this morning. Updated pt on plan, will continue to monitor closely.
[2025-01-09] MEDS: NEURONTIN 600 MG PO ×2 (13:04→21:09)
[2025-01-09] MEDS: ADDERALL 10 MG PO (13:04)
[2025-01-09] MEDS: LOVENOX 40 MG SC (13:05)
[2025-01-09] MEDS: FLEXERIL 10 MG PO ×2 (13:05→21:17)
[2025-01-09] MEDS: SUBUTEX 2 MG SL ×3 (13:05→21:09)
[2025-01-09] MEDS: D5LR 1000 IV (13:05)
[2025-01-09] MEDS: WELLBUTRIN XL (24 hour extended release) 300 MG PO (13:05)
[2025-01-09] MEDS: VITAMIN D3 (cholecalciferol) PO (13:10)
--- NOTE | 2025-01-09 13:32 | CM ---
Initial assessment completed with patient and her POA/friend, Jamila [phone]. Patient lives alone in a 2 story home plus basement,
B/B on , 6 steps to enter. [employer] patient was independent in ADL's and ambulation, drives when feels well. She now is in a weakened state. She has a colostomy, has supplies, RW, SPC and a shower chair. No in-home skilled services. Does have Meals
on Wheels on . Does have a HC-POA. Has had psychiatric hospitalization many years ago. No VA benefits. PCP is Dr. Che Bridges/Dr. Lima. Pharmacy is [facility] in [place]. Discharge POC. Therapy recommendation for SNF. Will provide
Medicare.Gov list.
--- NOTE | 2025-01-09 17:45 | PTCARENOTE ---
Addendum entered by Lyndsey Dunbar 01/09/25 19:36:
Updated home med rec to reflect Subutex order and Flexeril order that pt states she takes at home.
Original Note:
pt more awake, conversant, eating dinner, stating that she has not received enough Subutex today. She states that she takes Subutex 2mg SL BID, at 1500 and bedtime, not usually in the morning. She said that she is allowed to take an additional 2mg
PRN for a total of 6mg a day. She says she also takes Flexeril 15mg at HS, No Flexeril in the morning as ordered.
Discussed above with Dr. Moreno who asked if pharmacy could confirm her dosing of Subutex. Spoke with Js in the pharmacy and he stated that when he checked the PDMP, the pt has been receiving 90 tabs of Subutex for 3o days, making sense that she
takes 2mg BID and 2mg PRN daily.
Dr. Moreno ordered one time dose for this evening of Subutex 2mg, updated pt.
[2025-01-09] MEDS: COLACE 100 MG PO ×2 (18:20→21:09)
[2025-01-09] MEDS: MIRALAX 17 GRAMS PO (18:20)
[2025-01-09] MEDS: DESYREL 100 MG PO (21:09)
[2025-01-09] MEDS: PEPCID 20 MG PO (21:09)
[2025-01-10] MEDS: SYNTHROID 100 MCG PO (05:33)
[2025-01-10 07:00] VITALS: BP 128/82
[2025-01-10] MEDS: SUBUTEX 2 MG SL ×2 (07:58→19:54)
[2025-01-10] MEDS: WELLBUTRIN XL (24 hour extended release) 300 MG PO (07:59)
[2025-01-10] MEDS: COLACE 100 MG PO (07:59)
[2025-01-10] MEDS: FLEXERIL PO (08:00)
[2025-01-10] MEDS: ADDERALL 10 MG PO (08:00)
[2025-01-10] MEDS: VITAMIN D3 (cholecalciferol) PO (08:00)
[2025-01-10] MEDS: LOVENOX 40 MG SC (08:01)
[2025-01-10] MEDS: NEURONTIN 600 MG PO ×2 (08:01→19:54)
[2025-01-10] MEDS: MIRALAX 17 GRAMS PO (08:01)
[2025-01-10 08:09] LABS: Hematocrit 29.7 % (37.0-47.0); Hemoglobin 10.2 g/dL (12.0-16.0); Mean Corp Hgb Conc. 34.3 g/dL (33.0-37.0); Mean Corpuscular Volume 98.7 fL (81.0-99.0); Nucleated Red Blood Cells % 0 %; Platelet Count 136 10^3/uL (130-400); Red Cell Dist. Width 13.2 % (11.5-14.5)
[2025-01-10] MEDS: COMPAZINE 10 MG IV (08:19)
[2025-01-10 08:36] LABS: Blood Urea Nitrogen 13 mg/dl (7-17); Calcium 8.6 mg/dl (8.4-10.2); Carbon Dioxide 31 mmol/L (22-30); Chloride 102 mmol/L (98-107); Estimated Creatinine Clearance 63 ml/min; Glucose 110 mg/dl (70-99); Potassium 3.8 mmol/L (3.5-5.1); Sodium 136 mmol/L (135-145); eGFR > 60.00
[2025-01-10 08:59] LABS: Cortisol, Random 5.1 ug/dl
[2025-01-10 10:22] VITALS: BP 108/75; BP 133/82; BP 142/88; PULSE 102; PULSE 116; PULSE 95
--- NOTE | 2025-01-10 11:18 | CM ---
Addendum entered by Harvinder Aguayo 01/10/25 15:05:
[facility] accepted patient and can offer a bed. Confirmed w/ patient that she will be supplying her own colostomy supplies while at SNF. Patient's friend will be bringing a box of supplies to the hospital for her to have when she discharges. Confirmed
this w/ [facility].
Auth initiated in [facility], clinicals faxed to [phone]
Pending certification # [id number]
Plan: [facility] once auth is received
Addendum entered by Harvinder Aguayo 01/10/25 11:48:
[facility] no beds. [facility] does not accept patient's insurance
Updated patient who identified additional facilities, [facility] and [facility]. Referrals sent in [facility]
Original Note:
Chart reviewed. Plan is for patient to d/c to SNF. Medicare.gov list provided to patient yesterday
Met w/ patient bedside, identified [facility] and [facility]. CM placed referrals in [facility]. Patient made aware if no availability at either facilities, she will need to explore additional ones.
Per hospitalist, patient is stable and can d/c when there's an accepting facility and approved authorization. Patient is due to start chemo on 02/08
Plan: SNF
--- NOTE | 2025-01-10 13:31 | W.PN.HOSP.TC ---
Today's Communication/Plan
-
SNF rehab placement
Patient will require arrangement for lanreotide injection in heme-onc office
Discharge planning
Assessment / Plan
Assessment / Plan
1. Acute toxic metabolic encephalopathy
- Suspected polypharmacy with decreased renal clearance from decreased oral intake may have played role
- On complex regimen of trazodone/Subutex/cyclobenzaprine/gabapentin
- Dose of gabapentin was decreased to 600 mg twice daily
- Mentation is better today, continue monitoring. Still have a time some disorientation/forgetfulness
2. Generalized weakness/fatigue
- [facility] records reviewed and patient have symptoms ongoing for some time, likely secondary to malignancy
- PT evaluated and patient appropriate for rehab
3. Pancreatic adenocarcinoma
History of carcinoid tumor/rectal adenocarcinoma
History of metastasis to liver/lung/lymph node
History of chemoembolization of right hepatic lobe
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
- Patient was noted to having recurrence on imaging earlier this year.
- Pancreatic head biopsy also showing pancreatic adenocarcinoma
- Patient is being managed at [facility] oncology department
- Patient was planned to get lanreotide injection on 01/11 at [facility] office followed by initiation of PRRT/chemo on 02/08
4. Essential hypertension
Episode of orthostatic hypotension
-Orthostatic vitals remain positive with systolic blood pressure dropping from 140 to 108 on standing, patient although not reporting any dizziness
-Maintain on lower extremity compression stockings
-Not on any blood pressure medication at this point.
-Will consider adding midodrine if needed
History of alcohol use disorder
Generalized anxiety/depression
Asthma
History of basal cell carcinoma s/p excision
History of migraine
History of drug-induced peripheral neuropathy
Hypothyroidism
Lumbar arthropathy
History of rectovaginal fistula post repair
History of cervical fusion
History of colostomy
CODE STATUS discussed with the patient and she will be DNR/DNI
DVT prophylaxis Lovenox
Anticipated Discharge: Today
Subjective/Interval History
-
Date of Service: January 10, 2025
patient mentation better
remains at time forgetful/disoriented
no other complains
Objective Data
-
Labs:
Laboratory Results
01/10/25
07:31
WBC 3.5 L
Hgb 10.2 L
Hct 29.7 L
Plt Count 136
Sodium 136
Potassium 3.8
Chloride 102
Carbon Dioxide 31 H
BUN 13
Creatinine 0.8
Glucose 110 H
Calcium 8.6
Vital Signs:
Vital Signs
Temp Pulse Resp BP Pulse Ox
98.1 F 92 16 128/82 95
01/10/25 07:00 01/10/25 07:00 01/10/25 07:00 01/10/25 07:00 01/10/25 07:00
I&O
01/09/25 01/10/25 01/11/25
06:59 06:59 06:59
Intake Total 1120 / 1120 1200 / 1200
Balance 1120 / 1120 1200 / 1200
Review of Systems
-
Respiratory: Reports No Symptoms
Cardiac: Reports No Symptoms
Abdomen/GI: Reports No Symptoms
Physical Exam
-
General: Negative Appears in Distress
HEENT: Negative Oxygen
Neuro: Awake, Alert, Oriented and No Motor Deficits
[2025-01-10 15:00] VITALS: BP 134/82
[2025-01-10 19:50] VITALS: BP 126/83; BP 135/86; BP 144/90; PULSE 108; PULSE 87; PULSE 97
[2025-01-10] MEDS: COLACE PO (19:55)
[2025-01-10] MEDS: DESYREL 100 MG PO (22:58)
[2025-01-10] MEDS: FLEXERIL 10 MG PO (22:58)
[2025-01-10] MEDS: PEPCID 20 MG PO (22:58)
[2025-01-10 23:31] VITALS: BP 123/80
[2025-01-11] MEDS: SYNTHROID 100 MCG PO (03:52)
[2025-01-11 07:00] VITALS: BP 127/82
[2025-01-11] MEDS: LOVENOX 40 MG SC (08:38)
[2025-01-11] MEDS: NEURONTIN 600 MG PO (08:39)
[2025-01-11] MEDS: WELLBUTRIN XL (24 hour extended release) 300 MG PO (08:39)
[2025-01-11] MEDS: ADDERALL 10 MG PO (08:39)
[2025-01-11] MEDS: COLACE PO (08:41)
[2025-01-11] MEDS: VITAMIN D3 (cholecalciferol) 125 MCG PO (08:41)
[2025-01-11] MEDS: MIRALAX PO (08:41)
[2025-01-11] MEDS: FLEXERIL PO (08:41)
[2025-01-11 09:39] VITALS: BP 103/72; BP 124/82; BP 127/82; PULSE 108; PULSE 90; PULSE 98
[2025-01-11] MEDS: SUBUTEX 2 MG SL (10:07)
--- NOTE | 2025-01-11 11:04 | CM ---
Addendum entered by Ansley Arredondo 01/11/25 12:03:
Patient auth continues in pended status, per availity. CM will continue to follow for discharge planning needs.
Plan; SNF; [facility] when patient auth approved pending bed availability.
Original Note:
Pending auth, patient seen at bedside with friend also present on 4 . Patient plan is for transition to [facility] when auth confirmed. Patient plan is for friend to provide transportation for transition to SNF when auth confirmed. CM will call to
confirm authorization. CM will continue to follow for discharge planning needs.
Plan; SNF
--- NOTE | 2025-01-11 14:05 | W.PN.HOSP.TC ---
Today's Communication/Plan
-
d/c planning for snf rehab
Assessment / Plan
Assessment / Plan
1. Acute toxic metabolic encephalopathy -resolved
- Suspected polypharmacy with decreased renal clearance from decreased oral intake may have played role
- On complex regimen of trazodone/Subutex/cyclobenzaprine/gabapentin
- Dose of gabapentin was decreased to 600 mg twice daily
- Mentation is better today, continue monitoring. Still have a time some disorientation/forgetfulness
2. Generalized weakness/fatigue
- [facility] records reviewed and patient have symptoms ongoing for some time, likely secondary to malignancy
- PT evaluated and patient appropriate for rehab
3. Pancreatic adenocarcinoma
History of carcinoid tumor/rectal adenocarcinoma
History of metastasis to liver/lung/lymph node
History of chemoembolization of right hepatic lobe
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
- Patient was noted to having recurrence on imaging earlier this year.
- Pancreatic head biopsy also showing pancreatic adenocarcinoma
- Patient is being managed at [facility] oncology department
- Patient was planned to get lanreotide injection on 01/11 at [facility] office followed by initiation of PRRT/chemo on 02/08
4. Essential hypertension
Episode of orthostatic hypotension
-Orthostatic vitals remain positive with systolic blood pressure dropping from 140 to 108 on standing, patient although not reporting any dizziness
-Maintain on lower extremity compression stockings
-Not on any blood pressure medication at this point.
-Will consider adding midodrine if needed
History of alcohol use disorder
Generalized anxiety/depression
Asthma
History of basal cell carcinoma s/p excision
History of migraine
History of drug-induced peripheral neuropathy
Hypothyroidism
Lumbar arthropathy
History of rectovaginal fistula post repair
History of cervical fusion
History of colostomy
CODE STATUS discussed with the patient and she will be DNR/DNI
DVT prophylaxis Lovenox
Anticipated Discharge: Today
Subjective/Interval History
-
Date of Service: January 11, 2025
Feeling subjectively better
No reported other issues overnight
Objective Data
-
Vital Signs:
Vital Signs
Temp Pulse Resp BP Pulse Ox
98.5 F 90 12 127/82 95
01/11/25 07:00 01/11/25 07:00 01/11/25 07:00 01/11/25 07:00 01/11/25 07:00
I&O
01/10/25 01/11/25 01/12/25
06:59 06:59 06:59
Intake Total 1200 / 1200 480 / 480
Output Total 350 / 350
Balance 1200 / 1200 130 / 130
Review of Systems
-
Respiratory: Reports No Symptoms
Cardiac: Reports No Symptoms
Abdomen/GI: Reports No Symptoms
Physical Exam
-
General: Negative Appears in Distress
HEENT: Negative Oxygen
Neuro: Awake, Alert, Oriented and No Motor Deficits
[2025-01-11 14:24] VITALS: BP 147/95; PULSE 108
--- NOTE | 2025-01-11 14:59 | CM ---
Patient now authorized to go to [facility] for SNF. CM confirmed with liaison and they requested report to be called to [phone]/fax [phone]. Auth 01/11-01/16/25 auth number per availity # [id number]. CM will update physician and patient.
Patient friend to provide transportation to SNF. Patient to bring colostomy supplies. CM will continue to follow for discharge planning needs.
Plan; [facility]
[2025-01-11 15:00] VITALS: BP 138/90
--- NOTE | 2025-01-11 16:20 | W.DCSUMMARY ---
Discharge Summary
Discharge Data
Date of Admission: 01/08/25
Date of Discharge: 01/11/25
-
Pending Results: No
Hospital Course
Discharging Physician : Dr Alec Donnelly
Disposition : To SNF rehab
Primary care physician : Dr Che Bridges
Principal Discharge diagnosis :
Acute toxic encephalopathy from polypharmacy
Generalized weakness respiratory
Chronic Discharge diagnosis :
Pancreatic adenocarcinoma
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
History of chemoembolization of right hepatic lobe
Essential hypertension
Alcohol use disorder
Asthma
History of basal cell carcinoma post excision
Migraine
Hypothyroidism
History of drug-induced peripheral neuropathy
History of rectovaginal fistula s/p repair
History of cervical fusion
History of colonic resection and colostomy
Hospital Course :
Patient is 64-year-old female with above-mentioned past medical history was brought to ER after friend found patient very weak and lethargic at home. 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
carcinoid syndrome as well and planning to undergo chemotherapy. In ER evaluation patient was noted to be encephalopathic. No clear source of infection was noted. Patient polypharmacy with multiple sedative/psychoactive medication causing patient
to be likely confused. Patient medications were adjusted and patient was monitored in the hospital. Patient had improvement in symptoms in 48 hours. Patient was evaluated by physical therapy and was deemed appropriate for SNF rehab placement.
Patient was discharged to [facility] with plan for follow-up with outpatient oncologist in office.
Important imaging findings :
None
Procedure findings :
None
Discharge Plan
-
Patient Disposition: [facility]sp/SNF
Discharge Diagnosis/Procedures: Toxic encephalopathy, Generalized weakness
Condition: Fair
Diet: Regular
Activity: As tolerated
Driving Restrictions: No driving
Referrals:
Nicholas Thacker, DO [Active, Hematology / Oncology] - in two to three days
Referral Note: For lanreotide Inj
Che Bridges MD [Family Provider, Internal Medicine] - in one week
Additional Discharge Medication Instructions: Patient takes 2mg Buprenorphine/naloxone BID at 1500 & HS, allowed an additional 2mg dose PRN daily for a max of 6mg daily
Prescriptions:
New
trazodone 50 mg Tablet
100 mg PO HS Qty: 30 0RF
buprenorphine-naloxone 2-0.5 mg tablet, sublingual
1 tab sublingual TID Qty: 9 0RF
dextroamphetamine-amphetamine [Adderall] 10 mg tablet
10 mg PO DAILY Qty: 3 0RF
Continued
rizatriptan 10 MG tablet
10 mg PO PRN PRN (Reason: migraine)
gabapentin 400 MG capsule
1,200 mg PO BID
Patient Comments:
patient takes 3 times per day
levothyroxine 100 MCG tablet
100 mcg PO DAILY
omeprazole 20 MG capsule,delayed release(DR/EC)
20 mg PO DAILY
bupropion HCl 200 MG tablet sustained-release 12 hr
300 mg PO DAILY
Patient Comments:
patient states that she took 2 this morning
Epidiolex 1 UNIT solution
albuterol sulfate 2.5 MG/3 ML solution for nebulization
2.5 mg inhalation R Q4HPRN PRN (Reason: wheeze)
famotidine 20 MG tablet
20 mg PO HS
naproxen 250 MG tablet
1 tab PO Q8HPRN PRN (Reason: pain)
fluticasone propionate [Flovent HFA] 1 PUFF HFA aerosol inhaler
2 puff inhalation R BID PRN (Reason: wheezing)
albuterol sulfate [Proventil HFA] 90 MCG/PUFF HFA aerosol inhaler
1 puff inhalation PRN PRN (Reason: rescue inhaler)
cyclobenzaprine 10 MG tablet
15 mg PO HS
cetirizine 10 MG tablet
10 mg PO HS
prochlorperazine maleate 5 MG tablet
5 mg PO Q6HPRN PRN (Reason: nausea)
ascorbic acid (vitamin C) [Vitamin C] 500 MG tablet
1,000 mg PO DAILY
cholecalciferol (vitamin D3) 125 MCG tablet,disintegrating
5,000 unit PO DAILY
Oncovin:
1 tab PO DAILY
cholestyramine (bulk) 5 GM powder
5 gm MC BID
diphenoxylate-atropine 1 TAB tablet
1 tab PO DAILYPRN PRN (Reason: diarrhea)
Discontinued
losartan 50 MG tablet
100 mg PO DAILY
amlodipine 2.5 MG tablet
2.5 mg PO DAILY
trazodone 150 MG tablet
150 mg PO HS
buprenorphine-naloxone 1 TAB tablet, sublingual
2 mg PO BID
Patient Comments:
pt states that she takes 2mg BID at 1500 & HS, allowed an additional 2mg dose PRN daily for a max of 6mg daily
dextroamphetamine-amphetamine 10 MG tablet
10 mg PO DAILY
captopril 12.5 MG tablet
12.5 mg PO DAILY
buprenorphine HCl 2 mg Tablet, Sublingual
2 mg SUBLINGUAL DAILY PRN (Reason: pain)
Patient Comments:
pt is allowed to have an additional 2mg daily PRN in addition to the 2mg BID
Discharge Orders:
Discharge Patient (As Directed); Ordered 01/11/25
Ordered By: Alec Donnelly
Discharge Date and Time
Print Language: CUBAN
== END 2025-01-11 17:20 ==
LOC: 4 EAST ACU 21:21
PROVIDERS: Internal Medicine; Physician Assistant; ADMITTING PHYSICIAN Internal Medicine; ATTENDING PHYSICIAN Hospitalist; EMERGENCY PHYSICIAN Emergency Medicine; FAMILY PHYSICIAN Internal Medicine
DX: G92.8 Other toxic encephalopathy (principal); T50.915A Adverse effect of multiple unspecified drugs, medicaments and biological substances, initial encounter; C25.0 Malignant neoplasm of head of pancreas; J45.909 Unspecified asthma, uncomplicated; I10 Essential (primary) hypertension; G47.00 Insomnia, unspecified; G62.9 Polyneuropathy, unspecified; F10.10 Alcohol abuse, uncomplicated; G43.909 Migraine, unspecified, not intractable, without status migrainosus; E03.9 Hypothyroidism, unspecified; E34.00 Carcinoid syndrome, unspecified; C78.00 Secondary malignant neoplasm of unspecified lung; C78.7 Secondary malignant neoplasm of liver and intrahepatic bile duct; C7B.8 Other secondary neuroendocrine tumors; F17.290 Nicotine dependence, other tobacco product, uncomplicated; F41.1 Generalized anxiety disorder; F32.A Depression, unspecified; I95.1 Orthostatic hypotension; Z66 Do not resuscitate; Z11.52 Encounter for screening for COVID-19; Z79.51 Long term (current) use of inhaled steroids; Z79.899 Other long term (current) drug therapy
CPT/HCPCS: 70450; 71046; 74022; 80048; 80053; 81003; 81015; 82533; 82607; 83605; 83735; 84443; 85025; 85027; 87040; 87502; 87811; 93005; 96360; 97116; 97162; 97166; 99285; G0378

== ENCOUNTER → 2025-01-14 11:30 | Outpatient (REF) | payer OTHER, SELFPAY ==
[2025-01-14 12:44] LABS: Hematocrit 28.8 % (37.0-47.0); Hemoglobin 9.6 g/dL (12.0-16.0); Mean Corp Hgb Conc. 33.3 g/dL (33.0-37.0); Mean Corpuscular Volume 101.4 fL (81.0-99.0); Platelet Count 132 10^3/uL (130-400); Red Cell Dist. Width 13.9 % (11.5-14.5)
[2025-01-14 13:07] LABS: ALT (SGPT) 38 U/L (0-35); AST (SGOT) 32 U/L (14-36); Albumin 3.3 g/dl (3.5-5.0); Alkaline Phosphatase 87 U/L (38-126); Blood Urea Nitrogen 19 mg/dl (7-17); Calcium 8.5 mg/dl (8.4-10.2); Carbon Dioxide 31 mmol/L (22-30); Chloride 102 mmol/L (98-107); Glucose 88 mg/dl (70-99); Magnesium 2.5 mg/dl (1.6-2.3); Potassium 4.7 mmol/L (3.5-5.1); Sodium 135 mmol/L (135-145); Total Protein 6.1 g/dl (6.3-8.2); eGFR > 60.00
== END ==
LOC: OLABWHC 11:30
PROVIDERS: ATTENDING PHYSICIAN Family Medicine
DX: C25.9 Malignant neoplasm of pancreas, unspecified (principal); R53.1 Weakness; G92.8 Other toxic encephalopathy
CPT/HCPCS: 36415; 80053; 83735; 85027

== ENCOUNTER 2025-02-02 12:18 | Inpatient (IN) | payer OTHER, SELFPAY ==
[2025-01-31] VITALS (13 sets, daily range): BP systolic 132–173; BP diastolic 79–115; BMI 17.6; BMI 19.0
[2025-01-31 16:15] LABS: Hematocrit 37.5 % (37.0-47.0); Hemoglobin 12.8 g/dL (12.0-16.0); Mean Corp Hgb Conc. 34.1 g/dL (33.0-37.0); Mean Corpuscular Volume 96.9 fL (81.0-99.0); Nucleated Red Blood Cells % 0 %; Platelet Count 212 10^3/uL (130-400); Red Cell Dist. Width 13.3 % (11.5-14.5)
[2025-01-31 16:28] LABS: Ammonia < 9 umol/L (9-30)
[2025-01-31 16:29] LABS: Urine Character Clear (Clear)
--- NOTE | 2025-01-31 16:29 | ED.GENMED ---
History of Present Illness
<Cooper Castro MD, Resident - Last Filed: 01/31/25 21:18>
General
Chief Complaint: Change in Mental Status
Source: patient
Exam Limitations: none
Time Seen by Provider: 01/31/25 15:39
History of Present Illness
History of Present Illness:
64-year-old female who presents today with altered mental status. The nurse states that she did not respond to visiting nurse and friend when they knocked on her door, they called the police who did a wellness check and found her on the bed in a
confused state. She was clean and unsoiled on arrival. She does not remember losing consciousness. Recently had a similar presentation where she was admitted to [facility] 01/11/2025 with polypharmacy and newly diagnosed pancreatic
adenocarcinoma for which she sees Dr. Thacker and receives chemotherapy treatments. This is a decline from her baseline mental status according to her. She has nausea and generalized body weakness. Paramedics state glucose on arrival was 88. No
fever, cough, chills, weight loss, vomiting, diarrhea, constipation, focal neurological deficits. she is on multiple medications such as chemo treatments, gabapentin, prochlorperazine, trazodone.She is alert to place and person.
Past History
<Cooper Castro MD, Resident - Last Filed: 01/31/25 21:18>
Past History
ED Past Medical History: Asthma, Cancer (Rectal CA), Hypothyroidism, Psychiatric (Anxiety, Depression, ) and Other (rectal ca, s/p resection, last chemo 08/2014. Migraines, Alcoholic hepatitis, Cellulitis, )
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 This has come apart and now there is chronic ' space' that gets
abscessed intermittently. Last drainage and sigmoid debridement one week ago. Scheduled for surgery 11/17 for reverse ileostomy, permanent colostomy, clean up of fistula, muscle graaft to close space.)
Social History
Tobacco: Vaping
Alcohol: Former (Sober for 22 years)
Drug: None
Personal: Single
Living: alone
Review of Systems
<Cooper Castro MD, Resident - Last Filed: 01/31/25 21:18>
Review of Systems
All Other Systems: ROS reviewed and negative except as documented in HPI and ROS
Phy Exam
<Cooper Castro MD, Resident - Last Filed: 01/31/25 21:18>
General Physical Exam
General Presentation: well appearing and no apparent distress
General Skin: warm
General Habitus: cachetic and elderly
Cardiovascular Exam
Cardiovascular Exam: regular rate/rhythm and no edema
Pulmonary Exam
Pulmonary Exam: lungs clear and no respiratory distress
Gastrointestinal Exam
Gastrointestinal Exam: normal bowel sounds, non tender, soft and non distended
Neurological Exam
Neurological Exam: alert and oriented x3
Musculoskeletal Exam
Musculoskeletal Exam: full ROM and no edema
Psychiatric Exam
Psychiatric Exam: anxious
Course
<Cooper Castro MD, Resident - Last Filed: 01/31/25 21:18>
Orders/Labs/Results
Orders:
Orders
01/31/25 Dinner
Regular
At Your Request: Full Participation
01/31/25 15:50
Electrocardiogram (*1) Urgent
Reason for Study: Other
Other Reason for Exam: Possible Sepsis
EKG- Treatment ONCE
IV Insert/Care/Rem.- Treatment PRN
Straight cath- Treatment ONCE
01/31/25 15:53
Ammonia Urgent
Complete Blood Count/With Diff Urgent
Comprehensive Metabolic Panel Urgent
Urinalysis Reflex To Culture Urgent
Date Specimen was Collected: 01/31/25
Time Specimen was Collected: 15:50
Urine Microscopic Reflex Cult Urgent
Blood Culture Q20M
PHILL Source: Blood/Venous
Specimen Description:
Comment: Urgent from separate sites. If patient screens positive for possible sepsis
Blood Culture Q20M
PHILL Source: Blood/Venous
Specimen Description:
Comment: Urgent from separate sites. If patient screens positive for possible sepsis
Urine Culture Urgent
PHILL Source: U
Specimen Description:
Date Specimen was Collected: 01/31/25
Time Specimen was Collected: 15:50
01/31/25 16:24
CT Head W/wo Iv Contrast Urgent
Reason For Exam: AMS with hx pancreatic ca
01/31/25 17:51
Ondansetron Injectable [Zofran] 4 mg IV NOW STA
01/31/25 20:03
Trimethobenzamide [Tigan] 200 mg IM NOW STA
01/31/25 21:29
Admit/Transfer Patient As Directed
Co-Sign Provider:
Level of Care: Observation services
Assign to:: Telemetry
Physician / Group: kingston
Diagnosis: meatbolic encephelopathy
Reason for Telemetry: Arrhythmia
Date to Stop Telemetry: 02/03/25
Time to Stop Telemetry: 11:00
PRN Pain Medication Management As Directed
May give lesser potent ordered pain med per pt: Yes
preference::
Protocol:: Medication orders for pain may be administered in a
manner that supports deferring to patient preference
when the pt is:
- Requesting an ordered lesser potent pain medication.
Least to most potent pain medications are defined
as: acetaminophen < NSAID < tramadol < opioids
(morphine, oxycodone, hydromorphone).
- Requesting a lesser dose of the same medication IF
ORDERED.
- Requesting a less intrusive route of administration
if both routes are prescribed by the provider (PO <
IV).
01/31/25 21:30
Code Status As Directed
Resuscitation Status: Do not resuscitate
Reached after discussion with pt or family/Healthcare POA: Yes
DNR Bracelet Application ONCE
01/31/25 22:52
0.9% Sodium Chloride 1000 ml [Nss] 1,000 ml IV 60 mls/hr
Albuterol Nebs [Ventolin Nebules] 2.5 mg INH R Q4HPRN PRN wheeze
Albuterol [ProAIR HFA INHALER] 2 puff INH R Q6HPRN PRN sob
Cetirizine HCl [Zyrtec] 10 mg PO HS
Metoclopramide [Reglan] 10 mg IV Q6HPRN PRN
Ondansetron Injectable [Zofran] 4 mg IV Q6HPRN PRN
telotristat ethyl [Xermelo] 250 mg PO TIDPRN PRN
01/31/25 22:52
Activity As Directed
Activity Level: As Tolerated
Vital Signs As Directed
Frequency: Per unit guidelines
DX Deep Vein Thrombosis Video Routine
01/31/25 23:00
Buprenorphine [Subutex] 2 mg SL TID
01/31/25 23:04
Simethicone [Mylicon Drops] 125 mg PO QIDPRN PRN
01/31/25 23:25
Rizatriptan Orally Disintegrat [Maxalt Education Program Coordinator (Orally Disintegrating)] 10 mg PO DAILYPRN PRN
02/01/25 06:00
Complete Blood Count/With Diff IN AM
Comprehensive Metabolic Panel IN AM
Levothyroxine [Synthroid] 75 mcg PO DAILY@0600
02/01/25 08:00
Amphet Asp/Amphet/D-Amphet [Adderall] 20 mg PO BID
Bupropion(24Hr)Extended Releas [WELLBUTRIN XL (24 hour extended release)] 450 mg PO DAILY
Cholecalciferol (Vitamin D3) [VITAMIN D3 (cholecalciferol)] 125 mcg PO DAILY
Diphenoxylate / Atropine [Lomotil] 1 tablet PO DAILY
Famotidine [Pepcid] 20 mg PO DAILY
Gabapentin [Neurontin] 600 mg PO BID
Heparin 5,000 units SC Q12
Naproxen [Naprosyn] 500 mg PO BID
Pantoprazole [Protonix] 40 mg PO DAILY
02/03/25 11:00
DC Protocol for Telemetry ONCE
Abnormal Lab Results
01/31/25
15:53
RBC 3.87 L 10^6/uL
(4.20-5.40)
MCH 33.1 H pg
(27.0-31.0)
MPV 10.6 H fL
(7.4-10.4)
Absolute Lymphs (auto) 0.9 L 10^3/uL
(1.2-3.4)
Neutrophils % 76.8 H %
(42.2-75.2)
Lymphocytes % 14.6 L %
(20.5-51.1)
BUN 21 H mg/dl
(7-17)
Total Bilirubin 1.5 H mg/dl
(0.2-1.3)
AST 40 H U/L
(14-36)
ALT 48 H U/L
(0-35)
Ammonia < 9 L umol/L
(9-30)
Urine Ketones 3+ A
(Negative)
Urine Nitrite (Reflex) Positive A
(Negative)
Urine Bacteria (Reflex) Moderate A
(Negative)
Urine Albumin (Reflex) 2+ A
(Neg - Trace)
01/31/25 15:53
01/31/25 15:53
Vital Signs
Initial and Last Documented VS:
Initial Vital Signs
BP
173/115
01/31/25 15:41
Last Documented Vital Signs
Temp Pulse Resp BP Pulse Ox
98 F 92 11 149/79 98
01/31/25 15:42 01/31/25 22:45 01/31/25 22:45 01/31/25 22:00 01/31/25 22:45
<Bart Black, DO - Last Filed: 01/31/25 23:46>
Orders/Labs/Results
Orders:
Orders
01/31/25 Dinner
Regular
At Your Request: Full Participation
01/31/25 15:50
Electrocardiogram (*1) Urgent
Reason for Study: Other
Other Reason for Exam: Possible Sepsis
EKG- Treatment ONCE
IV Insert/Care/Rem.- Treatment PRN
Straight cath- Treatment ONCE
01/31/25 15:53
Ammonia Urgent
Complete Blood Count/With Diff Urgent
Comprehensive Metabolic Panel Urgent
Urinalysis Reflex To Culture Urgent
Date Specimen was Collected: 01/31/25
Time Specimen was Collected: 15:50
Urine Microscopic Reflex Cult Urgent
Blood Culture Q20M
PHILL Source: Blood/Venous
Specimen Description:
Comment: Urgent from separate sites. If patient screens positive for possible sepsis
Blood Culture Q20M
PHILL Source: Blood/Venous
Specimen Description:
Comment: Urgent from separate sites. If patient screens positive for possible sepsis
Urine Culture Urgent
PHILL Source: U
Specimen Description:
Date Specimen was Collected: 01/31/25
Time Specimen was Collected: 15:50
01/31/25 16:24
CT Head W/wo Iv Contrast Urgent
Reason For Exam: AMS with hx pancreatic ca
01/31/25 17:51
Ondansetron Injectable [Zofran] 4 mg IV NOW STA
01/31/25 20:03
Trimethobenzamide [Tigan] 200 mg IM NOW STA
01/31/25 21:29
Admit/Transfer Patient As Directed
Co-Sign Provider:
Level of Care: Observation services
Assign to:: Telemetry
Physician / Group: kingston
Diagnosis: meatbolic encephelopathy
Reason for Telemetry: Arrhythmia
Date to Stop Telemetry: 02/03/25
Time to Stop Telemetry: 11:00
PRN Pain Medication Management As Directed
May give lesser potent ordered pain med per pt: Yes
preference::
Protocol:: Medication orders for pain may be administered in a
manner that supports deferring to patient preference
when the pt is:
- Requesting an ordered lesser potent pain medication.
Least to most potent pain medications are defined
as: acetaminophen < NSAID < tramadol < opioids
(morphine, oxycodone, hydromorphone).
- Requesting a lesser dose of the same medication IF
ORDERED.
- Requesting a less intrusive route of administration
if both routes are prescribed by the provider (PO <
IV).
01/31/25 21:30
Code Status As Directed
Resuscitation Status: Do not resuscitate
Reached after discussion with pt or family/Healthcare POA: Yes
DNR Bracelet Application ONCE
01/31/25 22:52
0.9% Sodium Chloride 1000 ml [Nss] 1,000 ml IV 60 mls/hr
Albuterol Nebs [Ventolin Nebules] 2.5 mg INH R Q4HPRN PRN wheeze
Albuterol [ProAIR HFA INHALER] 2 puff INH R Q6HPRN PRN sob
Cetirizine HCl [Zyrtec] 10 mg PO HS
Metoclopramide [Reglan] 10 mg IV Q6HPRN PRN
Ondansetron Injectable [Zofran] 4 mg IV Q6HPRN PRN
telotristat ethyl [Xermelo] 250 mg PO TIDPRN PRN
10/06/25 22:52
Activity As Directed
Activity Level: As Tolerated
Vital Signs As Directed
Frequency: Per unit guidelines
DX Deep Vein Thrombosis Video Routine
01/31/25 23:00
Buprenorphine [Subutex] 2 mg SL TID
01/31/25 23:04
Simethicone [Mylicon Drops] 125 mg PO QIDPRN PRN
01/31/25 23:25
Rizatriptan Orally Disintegrat [Maxalt Education Program Coordinator (Orally Disintegrating)] 10 mg PO DAILYPRN PRN
02/01/25 06:00
Complete Blood Count/With Diff IN AM
Comprehensive Metabolic Panel IN AM
Levothyroxine [Synthroid] 75 mcg PO DAILY@0600
02/01/25 08:00
Amphet Asp/Amphet/D-Amphet [Adderall] 20 mg PO BID
Bupropion(24Hr)Extended Releas [WELLBUTRIN XL (24 hour extended release)] 450 mg PO DAILY
Cholecalciferol (Vitamin D3) [VITAMIN D3 (cholecalciferol)] 125 mcg PO DAILY
Diphenoxylate / Atropine [Lomotil] 1 tablet PO DAILY
Famotidine [Pepcid] 20 mg PO DAILY
Gabapentin [Neurontin] 600 mg PO BID
Heparin 5,000 units SC Q12
Naproxen [Naprosyn] 500 mg PO BID
Pantoprazole [Protonix] 40 mg PO DAILY
02/03/25 11:00
DC Protocol for Telemetry ONCE
Abnormal Lab Results
01/31/25
15:53
RBC 3.87 L 10^6/uL
(4.20-5.40)
MCH 33.1 H pg
(27.0-31.0)
MPV 10.6 H fL
(7.4-10.4)
Absolute Lymphs (auto) 0.9 L 10^3/uL
(1.2-3.4)
Neutrophils % 76.8 H %
(42.2-75.2)
Lymphocytes % 14.6 L %
(20.5-51.1)
BUN 21 H mg/dl
(7-17)
Total Bilirubin 1.5 H mg/dl
(0.2-1.3)
AST 40 H U/L
(14-36)
ALT 48 H U/L
(0-35)
Ammonia < 9 L umol/L
(9-30)
Urine Ketones 3+ A
(Negative)
Urine Nitrite (Reflex) Positive A
(Negative)
Urine Bacteria (Reflex) Moderate A
(Negative)
Urine Albumin (Reflex) 2+ A
(Neg - Trace)
01/31/25 15:53
01/31/25 15:53
Vital Signs
Initial and Last Documented VS:
Initial Vital Signs
BP
173/115
01/31/25 15:41
Last Documented Vital Signs
Temp Pulse Resp BP Pulse Ox
98 F 92 11 149/79 98
01/31/25 15:42 01/31/25 22:45 01/31/25 22:45 01/31/25 22:00 01/31/25 22:45
<Cooper Castro MD, Resident - Last Filed: 01/31/25 21:18>
MDM/Problems Addressed
MDM/Problems Addressed:
CBC- unremarkable
CMP- bilirubin of 1.5, AST of 40, ALT of 48 indicate mild hepatocellular injury
EKG- Normal sinus rhythm
CT head - no evidence of abnormality
UA- 3+ ketones, and urine nitrate positive, with 0-2 urine RBC. Suspicion for UTI low.
blood cultures- pending
Gave patient Zofran for nausea which didn't control the symptoms so then administered Tigan 200 mg
Will admit for persistent nausea, vomiting, and hyperbilirubinemia suspected to be secondary to pancreatic adenocarcinoma.
<Cooper Castro MD, Resident - Last Filed: 01/31/25 21:18>
*Pulse Oximetry
SaO2: 98
Oxygen Mode of Delivery: Room air
Patient hypoxic: no
*Critical Care Note
Total Time (30-74mins, 75-104mins- exclusive of procedures): Not Applicable
ED Attending Note
<Cooper Castro MD, Resident - Last Filed: 01/31/25 21:18>
-
Portions of this chart may have been created with voice recognition software.� Occasional wrong word or��sound alike� substitutions may have occurred due to the inherent limitations of voice recognition software.
<Bart Black, DO - Last Filed: 01/31/25 23:46>
ED Attending Note
Patient seen and examined by attending physician: Yes
I performed a history and physical exam of patient and discussed management with resident, I reviewed resident's note and agree with documented findings and plan of care.: Yes
ED Attending Note:
I reviewed and agree with history and treatment plan by Cooper Castro MD. My exam revealed
Physical Exam
General: Chronic ill appearance
Neck: supple. no meningeal signs. normal posterior pharynx
Heart: s1/s2 regular rate and rhythm, no murmur. equal radial
pulses.
HEENT: Pupils equal round reactive to light, EOMI
Lungs: no acute respiratory distress. clear bilaterally
Abdomen: normal bowel sounds. not tender. no CVAT
Neuro: alert and oriented. no focal neurological deficits cranial nerves II through XII intact
Skin: no rash
Psychiatric: well kept. interactive and cooperative
Extremities: no edema. no calf tenderness. negative homans. good distal pulses
64-year-old female with persistent nausea vomiting, weakness difficulty caring for self. Pancreatic cancer. Likely toxic metabolic encephalopathy secondary to polypharmacy. Admit to hospitalist for further management.
Discharge Plan
Departure
Patient Disposition: Admit
Date of Disposition: 01/31/25
Time of Disposition: 20:32
Admit to: Telemetry
Presentation/result/management discussed w/ accepting MD/DO: Hospitalist
Patient with high blood pressure during this ER visit?: Yes
Condition: Fair
Discharge Problem:
Acute alteration in mental status, Vomiting, Hyperbilirubinemia, Adenocarcinoma of pancreas
Interventions
Interventions:
*Risk Screen - Suicide Last Done: 01/31/25 15:42
*General Assessment Last Done: 01/31/25 15:42
*Neglect/Abuse Screening Last Done: 01/31/25 15:42
*ED- Fall Risk Assessment Last Done: 01/31/25 15:42
*ED COVID-19 Vaccine History Last Done: 01/31/25 15:42
*ED Influenza Vaccine History Last Done: 01/31/25 15:42
*Nursing Disposition Last Done: 01/31/25 22:56
ED- Pulmonary Assessment Last Done: 01/31/25 16:36
ED- Neurological Assessment Last Done: 01/31/25 15:48
ED- Cardiac Assessment Last Done: 01/31/25 16:36
Discharge Date and Time
Discharge Date/Time: 01/31/25 22:56
[2025-01-31 16:33] LABS: ALT (SGPT) 48 U/L (0-35); AST (SGOT) 40 U/L (14-36); Albumin 4.1 g/dl (3.5-5.0); Alkaline Phosphatase 125 U/L (38-126); Blood Urea Nitrogen 21 mg/dl (7-17); Calcium 9.1 mg/dl (8.4-10.2); Carbon Dioxide 26 mmol/L (22-30); Chloride 98 mmol/L (98-107); Estimated Creatinine Clearance 47 ml/min; Glucose 79 mg/dl (70-99); Potassium 4.0 mmol/L (3.5-5.1); Sodium 137 mmol/L (135-145); Total Protein 7.9 g/dl (6.3-8.2); eGFR > 60.00
[2025-01-31 17:13] LABS: Urine Squamous Cell 0-2 /LPF (Few)
[2025-01-31 17:15] LABS: Urine Red Blood Cell 0-2 /HPF (0-2); Urine White Cell 0-2 /HPF (0-5)
[2025-01-31] MEDS: ZOFRAN 4 MG IV (17:59)
[2025-01-31] MEDS: TIGAN 200 MG IM (20:09)
--- NOTE | 2025-01-31 21:35 | HPS.HSE ---
Family Physician
-
Family Physician: Nicholas Thacker
Chief Complaint
-
nausea, altered mental status
History of Present Illness
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
hypertension, alcohol use disorder, asthma, basal cell carcinoma status post excision, migraines, hypothyroidism, drug-induced peripheral neuropathy, rectovaginal fistula status post repair, cervical fusion, presenting with altered mental status.
Visiting nurse went to see the patient when they knocked on her door they called the police did a wellness check and found her on the bed in a confused state. Patient does not remember losing consciousness.
She recently had a similar presentation when she was hospitalized from 01/08 to 01/11 for acute toxic encephalopathy from polypharmacy. Her medications were adjusted at that time. Trazodone was decreased from 150 to 100 mg. Prophy naloxone was
decreased from 2 tabs to 1 tablet 3 times daily. She went to rehab afterwards and then went home.
She has nausea and generalized body weakness without vomiting. Paramedics state glucose on arrival was 88. She denies any fever, cough, chills, weight loss, vomiting, diarrhea, constipation, numbness or tingling or focal weakness. She has lost
weight. Patient denies taking excess of her medications.
She is supposed to start PRRT therapy next week at [place].
Medical History
Past Medical History
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
alcohol use disorder, asthma, basal cell carcinoma status post excision, migraines, hypothyr)
Past Surgical History: Reports None
Social History
Tobacco: Non-smoker
Alcohol: Former
Drug: None
Family History
Family History: Not pertinent
Allergies / Home Medications
Allergies reflects when Allergies were last updated in [employer].
Home Medications with original date entered in [employer]
Allergy/Medication List:
Allergies
Allergy/AdvReac Type Severity Reaction Status Date / Time
fluconazole (From Diflucan) Allergy Hives Verified 01/08/25 15:53
morphine Allergy VOMITING Verified 01/08/25 15:53
bees/wasps Allergy Anaphylaxis Uncoded 01/08/25 15:53
environmental Allergy asthma Uncoded 01/08/25 15:53
Home Medications
omeprazole 20 mg capsule,delayed release 20 mg PO DAILY Gastrointestinal Issue 01/06/19
rizatriptan 10 mg tablet 10 mg PO DAILYPRN PRN migraine 01/06/19
albuterol sulfate 2.5 mg/3 mL (0.083 %) solution for nebulization 2.5 mg inhalation R Q4HPRN PRN wheeze 02/09/19
famotidine 20 mg tablet 20 mg PO DAILY Gastrointestinal Issue 02/09/19
cetirizine 10 mg tablet 10 mg PO HS Allergies 10/25/19
cyclobenzaprine 10 mg tablet 15 mg PO HS Muscle Spasms 10/25/19
diphenoxylate-atropine 2.5 mg-0.025 mg tablet 1 tab PO DAILY 07/26/21
buprenorphine 2 mg-naloxone 0.5 mg sublingual tablet 1 tab sublingual TID #9 tabs 01/11/25
albuterol sulfate 90 mcg/actuation aerosol inhaler 2 puff inhalation R Q6HPRN PRN sob 01/31/25
bupropion HCl 150 mg 24 hr tablet, extended release (Wellbutrin XL) 450 mg PO DAILY 01/31/25
cholecalciferol (vitamin D3) 125 mcg (5,000 unit) tablet (Vitamin D3) 125 mcg PO DAILY 01/31/25
dextroamphetamine sulfate 10 mg tablet 20 mg PO BID 01/31/25
erenumab-aooe 140 mg/mL subcutaneous auto-injector (Aimovig Autoinjector) 140 mg SC QMONTH 01/31/25
gabapentin 800 mg tablet 800 mg PO BID 01/31/25
levothyroxine 75 mcg tablet (Synthroid) 75 mcg PO DAILY 01/31/25
naproxen 500 mg tablet 500 mg PO BID 01/31/25
prochlorperazine maleate 10 mg tablet (Compazine) 10 mg PO BIDPRN PRN nausea 01/31/25
simethicone 125 mg chewable tablet 125 mg PO QIDPRN PRN gas pains 01/31/25
telotristat ethyl 250 mg tablet (Xermelo) 250 mg PO TIDPRN PRN diarrhea 01/31/25
Review of Systems
-
History Source: Patient
A 12 point ROS was completed and negative except as noted: Yes
Constitutional: Reports No Symptoms
EENT: Reports No Symptoms
Respiratory: Reports No Symptoms
Cardiac: Reports No Symptoms
Abdomen/GI: Reports See HPI
: Reports No Symptoms
Musculoskeletal: Reports No Symptoms
Skin: Reports No Symptoms
Neurological: Reports No Symptoms
Endocrine: Reports No Symptoms
Hematologic/Lymphatic: Reports No Symptoms
Psych: Reports No Symptoms
Physical Exam
Vital Signs
Vital Signs
Temp Pulse Resp BP Pulse Ox
98 F 91 11 140/83 98
01/31/25 15:42 01/31/25 21:00 01/31/25 21:00 01/31/25 21:00 01/31/25 21:00
Physical Exam
General: Well Developed, Well Nourished and No Apparent Distress
HEENT: NormoCephalic, Moist mucous membranes and Atraumatic
Respiratory: Clear
Cardiac: S1/S2 and Regular Rhythm; No Murmur or Rub
GI: Soft, Non Tender, Non Distended and Normal Bowel Sounds; No Organomegaly
Rectal: Deferred by Provider
Musculoskeletal: No Clubbing, No Cyanosis and No Edema
Skin: No Rash
Neuro: Nonfocal/grossly intact
Laboratory Results
-
01/31/25 15:53
01/31/25 15:53
Laboratory Results
Total Bilirubin 1.5 mg/dl (0.2-1.3) H 01/31/25 15:53
AST 40 U/L (14-36) H 01/31/25 15:53
ALT 48 U/L (0-35) H 01/31/25 15:53
Alkaline Phosphatase 125 U/L (38-126) 01/31/25 15:53
Data Reviewed
-
Lab Data: Labs Reviewed by me
Old Records: Reviewed
Impression/Plan
-
IMPRESSION:
PLAN:
# Recurrent episode of acute toxic metabolic encephalopathy likely secondary to polypharmacy in the setting of failure to thrive/poor p.o. secondary to malignancy
-CT head shows no acute intracranial abnormality
-Urinalysis unremarkable
-Ammonia level negative
- Blood cultures pending
- On multiple sedating medications, decrease gabapentin back to 600 twice daily which was done previously
- gentle IV fluids
# Nausea secondary to malignancy
#Pancreatic adenocarcinoma
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
#History of chemoembolization of right hepatic lobe
-Zofran and Tigan given, patient did not tolerate IM Tigan so we used Zofran and Reglan in place of Compazine
-QTc of 459
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
- Patient was noted to having recurrence on imaging earlier this year.
- Pancreatic head biopsy also showing pancreatic adenocarcinoma
- Patient is being managed at [facility] oncology department
- Patient was planned to get lanreotide injection on 01/11 at [facility] office followed by initiation of PRRT/chemo on 02/08
- Continue buprenorphine/naloxone for pain
- Continue xermelo for carcinoid associated
History of colon resection status post colostomy
- Ostomy output normal
Essential hypertension
Prior episode of orthostatic hypotension
Alcohol use disorder
- No longer drinks alcohol
Generalized anxiety/depression
- Continue bupropion
-Continue Adderall
Asthma
- Continue albuterol
History of basal cell carcinoma status post excision
History of migraine
History of drug-induced peripheral neuropathy
- Hold cyclobenzaprine
- Gabapentin dose decreased to 600 twice daily
History of hypothyroidism
History of lumbar radiculopathy
History of rectovaginal fistula status post repair
History of cervical fusion
Hypothyroidism
- Continue levothyroxine
Insomnia
- Hold trazodone
DNR/DNI
Prophylaxis�Lovenox
Regular diet
--- NOTE | 2025-01-31 23:00 | PTCARENOTE ---
Rec'd patient from ER. c/o nausea. AAOx3, forgetful. stable vitals. Bed alarm on for safety. POC reviewed with patient.
[2025-01-31] MEDS: ZYRTEC 10 MG PO (23:20)
[2025-01-31] MEDS: REGLAN 10 MG IV (23:20)
[2025-01-31] MEDS: SUBUTEX 2 MG SL (23:20)
[2025-01-31] MEDS: NSS 1000 IV (23:21)
[2025-02-01 03:29] VITALS: BP 135/90
[2025-02-01] MEDS: SYNTHROID 75 MCG PO (05:21)
[2025-02-01 06:38] LABS: Hematocrit 31.4 % (37.0-47.0); Hemoglobin 10.7 g/dL (12.0-16.0); Mean Corp Hgb Conc. 34.1 g/dL (33.0-37.0); Mean Corpuscular Volume 96.0 fL (81.0-99.0); Nucleated Red Blood Cells % 0 %; Platelet Count 186 10^3/uL (130-400); Red Cell Dist. Width 13.4 % (11.5-14.5)
[2025-02-01 07:22] VITALS: BP 157/94
[2025-02-01 07:33] LABS: ALT (SGPT) 41 U/L (0-35); AST (SGOT) 36 U/L (14-36); Albumin 3.1 g/dl (3.5-5.0); Alkaline Phosphatase 98 U/L (38-126); Blood Urea Nitrogen 19 mg/dl (7-17); Calcium 8.1 mg/dl (8.4-10.2); Carbon Dioxide 27 mmol/L (22-30); Chloride 101 mmol/L (98-107); Estimated Creatinine Clearance 56 ml/min; Glucose 116 mg/dl (70-99); Potassium 3.7 mmol/L (3.5-5.1); Sodium 135 mmol/L (135-145); Total Protein 6.1 g/dl (6.3-8.2); eGFR > 60.00
--- NOTE | 2025-02-01 08:26 | VNURNOTE ---
Chart reviewed. Patient is current with [facility]. Will continue to follow hospital course and DC plans.
[2025-02-01] MEDS: PROTONIX 40 MG PO (08:47)
[2025-02-01] MEDS: HEPARIN 5000 UNITS SC (08:47)
[2025-02-01] MEDS: NEURONTIN 600 MG PO ×2 (08:47→22:37)
[2025-02-01] MEDS: NAPROSYN 500 MG PO ×2 (08:47→22:36)
[2025-02-01] MEDS: PEPCID 20 MG PO (08:47)
[2025-02-01] MEDS: WELLBUTRIN XL (24 hour extended release) 450 MG PO (08:48)
[2025-02-01] MEDS: ADDERALL 20 MG PO (08:55)
[2025-02-01] MEDS: LOMOTIL 1 TABLET PO (08:55)
[2025-02-01] MEDS: SUBUTEX 2 MG SL ×3 (08:55→22:39)
[2025-02-01] MEDS: VITAMIN D3 (cholecalciferol) 125 MCG PO (08:55)
[2025-02-01] MEDS: REGLAN 10 MG IV (09:10)
[2025-02-01] MEDS: ZOFRAN 4 MG IV ×2 (10:43→22:04)
[2025-02-01 11:26] VITALS: BP 168/111
--- NOTE | 2025-02-01 13:26 | W.PN.HOSP.TC ---
Today's Communication/Plan
-
MR brain
KUB
monitor stool output - does say she doesnt have bms for a few days at a time
Assessment / Plan
Assessment / Plan
Physical Exam
General: Well Developed, Well Nourished and No Apparent Distress
HEENT: NormoCephalic, Moist mucous membranes and Atraumatic
Respiratory: Clear
Cardiac: S1/S2 and Regular Rhythm; No Murmur or Rub
GI: Soft, Non Tender, Non Distended and Normal Bowel Sounds; No Organomegaly; no stool in ostomy
Rectal: Deferred by Provider
Musculoskeletal: No Clubbing, No Cyanosis and No Edema
Skin: No Rash
Neuro: Nonfocal/grossly intact
# Recurrent episode of acute toxic metabolic encephalopathy likely secondary to polypharmacy in the setting of failure to thrive/poor p.o. secondary to malignancy
-CT head shows no acute intracranial abnormality
-Urinalysis unremarkable
-Ammonia level negative
- Blood cultures pending
- On multiple sedating medications, decrease gabapentin back to 600 twice daily which was done previously
- gentle IV fluids
-MRI Brain
# Nausea secondary to malignancy
#Pancreatic adenocarcinoma
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
#History of chemoembolization of right hepatic lobe
-Zofran and Tigan given, patient did not tolerate IM Tigan so we used Zofran and Reglan in place of Compazine
-QTc of 459
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
- Patient was noted to having recurrence on imaging earlier this year.
- Pancreatic head biopsy also showing pancreatic adenocarcinoma
- Patient is being managed at [facility] oncology department
- Patient was planned to get lanreotide injection on 01/11 at [facility] office followed by initiation of PRRT/chemo on 02/08
- Continue buprenorphine/naloxone for pain
- Continue xermelo for carcinoid associated
-KUB today; may need CT A/P and surgical evaluation
History of colon resection status post colostomy
- Ostomy output normal
Essential hypertension
Prior episode of orthostatic hypotension
Alcohol use disorder
- No longer drinks alcohol
Generalized anxiety/depression
- Continue bupropion
-Continue Adderall
Asthma
- Continue albuterol
History of basal cell carcinoma status post excision
History of migraine
History of drug-induced peripheral neuropathy
- Hold cyclobenzaprine
- Gabapentin dose decreased to 600 twice daily
History of hypothyroidism
History of lumbar radiculopathy
History of rectovaginal fistula status post repair
History of cervical fusion
Hypothyroidism
- Continue levothyroxine
Insomnia
- Hold trazodone
DNR/DNI
Prophylaxis�Lovenox
Regular diet
Total time spent on today's encounter was 51 minutes which included time spent in counseling the patient/family regarding diagnosis and treatment plan as listed above, goals of care, and symptom management. Case was discussed with nursing staff,
specialists, and care coordinators/case management. All labs and imaging personally reviewed by me. Remainder the time spent in detailed review of previous records, lab data, imaging, and other medical provider documentation.
Anticipated Discharge: Today
Subjective/Interval History
-
Date of Service: February 01, 2025
Nauseous and vomiting
Objective Data
-
Labs:
Laboratory Results
02/01/25
06:13
WBC 6.1
Hgb 10.7 L
Hct 31.4 L
Plt Count 186
Sodium 135
Potassium 3.7
Chloride 101
Carbon Dioxide 27
BUN 19 H
Creatinine 0.9
Glucose 116 H
Calcium 8.1 L
Total Bilirubin 0.8
AST 36
ALT 41 H
Alkaline Phosphatase 98
Vital Signs:
Vital Signs
Temp Pulse Resp BP Pulse Ox
97.7 F 101 16 168/111 97
02/01/25 11:26 02/01/25 11:26 02/01/25 11:26 02/01/25 11:26 02/01/25 11:26
I&O
01/31/25 02/01/25 02/02/25
06:59 06:59 06:59
Intake Total 840 / 840
Balance 840 / 840
Review of Systems
-
Respiratory: Reports No Symptoms
Cardiac: Reports No Symptoms
Abdomen/GI: Reports No Symptoms
Data Reviewed
-
CT Scan: Report Reviewed by me
Labs: Labs Reviewed by me
[2025-02-01 15:25] VITALS: BP 163/102
--- NOTE | 2025-02-01 15:47 | CM ---
Patient seen at bedside
IA completed--OBS status, form explained & signed. In chart
Await MRI brain
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
cell carcinoma status post excision, migraines, hypothyroidism, drug-induced peripheral neuropathy, rectovaginal fistula status post repair
Stated that she has an appt with Dr. Sorin Moulton at [place] for PRRT on 02/08
Lives in an apartment alone, 5 steps to enter
PLOF: independent uses a walker
DME: [employer]
Current with [facility], recently dc from [facility] on 01/19/25
PCP: Felice Lima
Pharmacy: [facility]
PLAN: TBD, follow hospital progress, CM to continue to follow
[2025-02-01] MEDS: NSS 1000 IV (17:30)
--- NOTE | 2025-02-01 18:24 | W.PN.UPDATE ---
Addendum entered and electronically signed by Igor Mera MD 02/01/25 18:47:
Cross cover--> also discussed with patient and family at bedside. Patient alert at the moment able to engage in conversation. Vital signs stable. Patient has no contraindications for systemic anticoagulation such as any major bleeding currently
or in the past. Discussed about pros and cons of anticoagulation and she is agreeable with heparin drip. Last hemoglobin 10.7. Last platelet count 186. Last creatinine 0.9. Answered all questions to patient and family satisfaction.
Original Note:
Update Note
Progress Note Update
Cross cover--> I was informed by primary attending physician abdominal results MRI of the brain. MRI shows acute thrombosis of right sigmoid sinus and proximal right internal jugular vein. Will start IV heparin drip and consulted vascular surgery
for further evaluation.
[2025-02-01 19:00] VITALS: BP 165/107
[2025-02-01 19:18] LABS: Hematocrit 32.4 % (37.0-47.0); Hemoglobin 11.4 g/dL (12.0-16.0); Mean Corp Hgb Conc. 35.2 g/dL (33.0-37.0); Mean Corpuscular Volume 94.7 fL (81.0-99.0); Platelet Count 165 10^3/uL (130-400); Red Cell Dist. Width 13.2 % (11.5-14.5)
[2025-02-01 19:28] LABS: APTT 26.0 Sec (23.4-35.0)
--- NOTE | 2025-02-01 19:52 | PTCARENOTE ---
During shift patient received PRN Zofran and Reglan for nausea and vomiting. vomited 2 mod amount of green bile emesis. at [address] Hernandez for b/p of 168/111, no orders obtained at that time and did request abd film due to patient with
n/v and no stool in ostomy, however patient patient see waxes and wanes between diarrhea and constipation. at 1758, notified Dr. Hinson of MRI report. patient to be started on Heparin. patient sitting on edge of bed, eating dinner, smiling, will
continue to monitor.
[2025-02-01] MEDS: HEPARIN 4400 UNITS IV (20:40)
[2025-02-01] MEDS: HEPARIN 25000 UNITS/250 ML IV (20:43)
[2025-02-01] MEDS: ADDERALL PO ×2 (22:36→22:46)
[2025-02-01] MEDS: ZYRTEC 10 MG PO (22:37)
[2025-02-01 23:00] VITALS: BP 142/80
[2025-02-02] VITALS (7 sets, daily range): BP systolic 132–157; BP diastolic 79–99; PULSE 100; O2SAT 98
[2025-02-02] MEDS: REGLAN 10 MG IV (02:08)
[2025-02-02 03:54] LABS: APTT > 200 Sec (23.4-35.0)
[2025-02-02 05:59] LABS: Hematocrit 27.2 % (37.0-47.0); Hemoglobin 9.7 g/dL (12.0-16.0); Mean Corp Hgb Conc. 35.7 g/dL (33.0-37.0); Mean Corpuscular Volume 95.1 fL (81.0-99.0); Platelet Count 149 10^3/uL (130-400); Red Cell Dist. Width 13.2 % (11.5-14.5)
[2025-02-02] MEDS: SYNTHROID 75 MCG PO (06:00)
[2025-02-02 06:20] LABS: ALT (SGPT) 40 U/L (0-35); AST (SGOT) 38 U/L (14-36); Albumin 2.8 g/dl (3.5-5.0); Alkaline Phosphatase 91 U/L (38-126); Blood Urea Nitrogen 18 mg/dl (7-17); Calcium 7.7 mg/dl (8.4-10.2); Carbon Dioxide 26 mmol/L (22-30); Chloride 103 mmol/L (98-107); Estimated Creatinine Clearance 56 ml/min; Glucose 82 mg/dl (70-99); Potassium 3.5 mmol/L (3.5-5.1); Sodium 135 mmol/L (135-145); Total Protein 5.7 g/dl (6.3-8.2); eGFR > 60.00
[2025-02-02] MEDS: PROTONIX 40 MG PO (09:06)
[2025-02-02] MEDS: NAPROSYN 500 MG PO ×2 (09:06→20:39)
[2025-02-02] MEDS: NEURONTIN 600 MG PO ×2 (09:06→20:39)
[2025-02-02] MEDS: PEPCID 20 MG PO (09:06)
[2025-02-02] MEDS: WELLBUTRIN XL (24 hour extended release) 450 MG PO (09:06)
[2025-02-02] MEDS: VITAMIN D3 (cholecalciferol) 125 MCG PO (09:06)
[2025-02-02] MEDS: LOMOTIL 1 TABLET PO (09:09)
[2025-02-02] MEDS: SUBUTEX 2 MG SL ×3 (09:09→22:34)
[2025-02-02] MEDS: ADDERALL 20 MG PO (09:09)
[2025-02-02] MEDS: NSS 1000 IV (09:15)
--- NOTE | 2025-02-02 11:08 | CON.ONC ---
Consultation
-
Date Consultation Requested: 02/02/25
Date Consultation Performed: 02/02/25
Requesting Provider: Dr. Jamel Hinson
Performing Provider: Dr. Raymond Heredia and Dr. Tyra Vega
Reason for Consultation: History of neuroendocrine tumor, sinus thrombosis
Impression
Impression
#Acute cerebral venous sinus thrombosis
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
#Chemotherapy associated malignancy related hypercoagulability
#Nausea, dizziness, confusion -now resolved
Plan
Plan
- Patient with acute onset of nausea, dizziness and transient confusion, found to have acute occlusive thrombosis of right sigmoid sinus and proximal right internal jugular vein on MRI brain. Likely thrombotic event in the setting of advanced
malignancy given hypercoagulable state.
- Patient currently on heparin drip, with improvement in mental status and neurological function. Patient is answering questions appropriately and remembers Dr. Heredia's first name.
- Continue heparin drip now with therapeutic monitoring. Can eventually transition to DOAC for long-term anticoagulation.
- Patient's nausea and dizziness has improved. Was likely due to venous sinus thrombosis and associated increased intracranial pressure. Symptoms improving. Continue hydration.
- Ongoing management with lanreotide, Xermelo for metastatic colorectal carcinoma with neuroendocrine differentiation. Patient follows with Dr. Monisha Greene at [facility]. Scheduled for PRRT with lutetium Tammi 177 on 02/08/25.
- Continue IV fluids for hydration, antiemetics for nausea.
- Patient to follow-up with Dr. Narayan at [facility].
Patient History
History of Present Illness
Patient is a 64-year-old female with a complex oncologic history, including rectal adenocarcinoma (2013) s/p neoadjuvant chemoradiation, surgical resection and adjuvant FOLFOX; later developing pulmonary and hepatic metastasis, and colon cancer with
neuroendocrine differentiation who presented to the ED with altered mental status. Patient was found confused on her bed by a visiting nurse/police when she did not answer the door for the nurse. Patient states she started having nausea,
dizziness, and ' did not have control over herself while navigating at home.' Patient had a similar episode in December when she was hospitalized for acute toxic encephalopathy from polypharmacy. Patient's trazodone dose was decreased from 150 mg
to 100 mg, and naloxone was decreased from 2 tablets TID to 1 tablets 3 TID. No abdominal pain, vomiting, diarrhea, chest pain, shortness of breath, fever, chills or any other symptoms. Patient is scheduled for PRRT therapy at [facility] on 02/08/2025.
Patient follows with Dr. Thacker at [facility], and Dr. Monisha Greene at [facility].
Past-Medical/Surgical History
pancreatic adenocarcinoma,
carcinoid tumor/rectal adenocarcinoma with metastasis to lung/liver/lymph node status post chemo embolization of right hepatic lobe, colonic resection and colostomy
hypertension
alcohol use disorder
asthma
basal cell carcinoma status post excision
migraines
hypothyroidism
Patient Medication
�Medication �Instructions �Recorded �Confirmed �Last Taken �Type
omeprazole 20 mg capsule,delayed 20 mg PO DAILY Gastrointestinal 01/06/19 01/31/25 10/26/19 History
release Issue
rizatriptan 10 mg tablet 10 mg PO DAILYPRN PRN migraine 01/06/19 01/31/25 02/25/19 History
albuterol sulfate 2.5 mg/3 mL 2.5 mg inhalation R Q4HPRN PRN 02/09/19 01/31/25 10/25/19 History
(0.083 %) solution for nebulization wheeze
famotidine 20 mg tablet 20 mg PO DAILY Gastrointestinal 02/09/19 01/31/25 10/26/19 History
Issue
cetirizine 10 mg tablet 10 mg PO HS Allergies 10/25/19 01/31/25 10/25/19 History
cyclobenzaprine 10 mg tablet 15 mg PO HS Muscle Spasms 10/25/19 01/31/25 10/25/19 History
diphenoxylate-atropine 2.5 1 tab PO DAILY 07/26/21 01/31/25 Unknown History
mg-0.025 mg tablet
buprenorphine 2 mg-naloxone 0.5 mg 1 tab sublingual TID #9 tabs 01/11/25 01/31/25 Unknown Rx
sublingual tablet
albuterol sulfate 90 mcg/actuation 2 puff inhalation R Q6HPRN PRN sob 01/31/25 01/31/25 Unknown History
aerosol inhaler
bupropion HCl 150 mg 24 hr tablet, 450 mg PO DAILY 01/31/25 01/31/25 Unknown History
extended release (Wellbutrin XL)
cholecalciferol (vitamin D3) 125 125 mcg PO DAILY 01/31/25 01/31/25 Unknown History
mcg (5,000 unit) tablet (Vitamin
D3)
dextroamphetamine sulfate 10 mg 20 mg PO BID 01/31/25 01/31/25 Unknown History
tablet
erenumab-aooe 140 mg/mL 140 mg SC QMONTH 01/31/25 01/31/25 Unknown History
subcutaneous auto-injector
(Aimovig Autoinjector)
gabapentin 800 mg tablet 800 mg PO BID 01/31/25 01/31/25 Unknown History
levothyroxine 75 mcg tablet 75 mcg PO DAILY 01/31/25 01/31/25 Unknown History
(Synthroid)
naproxen 500 mg tablet 500 mg PO BID 01/31/25 01/31/25 Unknown History
prochlorperazine maleate 10 mg 10 mg PO BIDPRN PRN nausea 01/31/25 01/31/25 Unknown History
tablet (Compazine)
simethicone 125 mg chewable tablet 125 mg PO QIDPRN PRN gas pains 01/31/25 01/31/25 Unknown History
telotristat ethyl 250 mg tablet 250 mg PO TIDPRN PRN diarrhea 01/31/25 01/31/25 Unknown History
(Xermelo)
Active Medications
Generic Name Dose Route Start Last Admin
Trade Name Freq PRN Reason Stop Dose Admin
Albuterol 2 puff 01/31/25 22:52
Albuterol Hfa [90 Mcg/Dose] Inhaler INH
R Q6HPRN PRN
sob
Protocol
Albuterol Sulfate 2.5 mg 01/31/25 22:52
Albuterol Nebs 2.5 Mg/3 Ml Ampul INH
R Q4HPRN PRN
wheeze
Protocol
Amphetamine/Dextroamphetamine 20 mg 02/01/25 08:00 02/02/25 09:09
Amphet Asp/Amphet/D-Amphet (Adderall) 10 Mg Tablet PO 02/15/25 07:59 20 mg
BID MORIS Administration
Buprenorphine 2 mg 01/31/25 23:00 02/02/25 09:09
Buprenorphine 2 Mg Sl Tablet SL 02/14/25 22:59 2 mg
TID MORIS Administration
Bupropion HCl 450 mg 02/01/25 08:00 02/02/25 09:06
Bupropion (24hr) Extended Release 150 Mg Tablet PO 03/01/25 07:59 450 mg
DAILY MORIS Administration
Cetirizine HCl 10 mg 01/31/25 22:52 02/01/25 22:37
Cetirizine Hcl 10 Mg Tablet PO 02/28/25 22:51 10 mg
HS MORIS Administration
Cholecalciferol 125 mcg 02/01/25 08:00 02/02/25 09:06
Cholecalciferol (Vitamin D3) 125 Mcg Tablet (5,000 Units) PO 03/01/25 07:59 125 mcg
DAILY MORIS Administration
Diphenoxylate HCl/Atropine 1 tablet 02/01/25 08:00 02/02/25 09:09
Diphenoxylate/Atropine Tablet PO 03/01/25 07:59 1 tablet
DAILY MORIS Administration
Famotidine 20 mg 02/01/25 08:00 02/02/25 09:06
Famotidine 20 Mg Tablet PO 03/01/25 07:59 20 mg
DAILY MORIS Administration
Gabapentin 600 mg 02/01/25 08:00 02/02/25 09:06
Gabapentin 300 Mg Capsule PO 03/01/25 07:59 600 mg
BID MORIS Administration
Heparin Sodium 4,400 units 02/01/25 18:48
Heparin 80 Units/Kg Iv Rebolus IV 03/01/25 18:47
PRN PRN
PTT < OR = 64 seconds
Heparin Sodium 2,200 units 02/01/25 18:49
Heparin 40 Units/Kg Iv Rebolus IV 03/01/25 18:48
PRN PRN
PTT = 64.1 to 72.9 seconds
Sodium Chloride 1,000 mls @ 60 mls/hr 01/31/25 22:52 02/02/25 09:15
Nss IV 1,000 mls
.[id number] MORIS Administration
Heparin Sodium 25,000 units in 250 mls @ 0 mls/hr 02/01/25 18:30 02/01/25 20:43
Heparin 14208 Units/250 Ml IV 250 mls
PER PROTOCOL MORIS Administration
Protocol
Per Protocol
Levothyroxine Sodium 75 mcg 02/01/25 06:00 02/02/25 06:00
Levothyroxine 75 Mcg Tablet PO 03/01/25 05:59 75 mcg
DAILY@0600 MORIS Administration
Metoclopramide HCl 10 mg 01/31/25 22:52 02/02/25 02:08
Metoclopramide 10 Mg/2 Ml Vial IV 02/28/25 22:51 10 mg
Q6HPRN PRN Administration
nausea
Naproxen 500 mg 02/01/25 08:00 02/02/25 09:06
Naproxen 500 Mg Tablet PO 03/01/25 07:59 500 mg
BID MORIS Administration
Pt's Own ( 250 mg 01/31/25 22:52
Telotristat Ethyl [ PO
Xermelo] 250 Mg TIDPRN PRN
Tablet) Tidprn diarrhea
Diarrhea
On Hold: 02/02/25 10:29
Comment: VO TO HOLD. MAY
ACTIVATE ORDER IF PATIENT IS
ABLE TO SUPPLY
Ondansetron HCl 4 mg 01/31/25 22:52 02/01/25 22:04
Ondansetron 4 Mg/2 Ml Vial IV 02/28/25 22:51 4 mg
Q6HPRN PRN Administration
nausea and vomiting
Pantoprazole Sodium 40 mg 02/01/25 08:00 02/02/25 09:06
Pantoprazole 40 Mg Delayed Release Tablet PO 03/01/25 07:59 40 mg
DAILY MORIS Administration
Rizatriptan Benzoate 10 mg 01/31/25 23:25
Rizatriptan 10 Mg (Orally Disintegrating) Tablet PO 02/28/25 23:24
DAILYPRN PRN
migraine
Simethicone 125 mg 01/31/25 23:04
Simethicone (40 Mg/0.6 Ml) Drops 30 Ml Bottle PO 02/28/25 23:03
QIDPRN PRN
gas pains
Sodium Chloride 0 flush 01/31/25 23:00
Sodium Chloride 0.9% (Flush) Syringe IV 02/28/25 22:59
PER PROTOCOL MORIS
Review of Systems
-
History Source: Patient
Constitutional: Reports Fatigue
EENT: Reports No Symptoms
Respiratory: Reports No Symptoms
Cardiac: Reports No Symptoms
GI: Reports Nausea
Breast: Reports No Symptoms
: Reports No Symptoms
Musculoskeletal: Reports No Symptoms
Skin: Reports No Symptoms
Neuro: Reports Dizzy
Endocrine: Reports No Symptoms
Hematologic/Lymphatic: Reports No Symptoms
Allergy / Immunology: Reports No Symptoms
Physical Exam
-
General: Well Developed, Well Nourished, No Apparent Distress, Comfortable and Conversant
HEENT: Moist Mucous Membranes
Cardiology: Normal Sinus Rhythm, S1 and S2
Pulmonary: Clear
GI: Soft and Normal Bowel Sounds
Musculoskeletal: No Clubbing, No Cyanosis and No Edema
Skin: Warm
Psych: Calm
Labs
Lab Results
WBC 7.6 10^3/uL (4.8-10.8) 02/02/25 05:08
RBC 2.86 10^6/uL (4.20-5.40) L 02/02/25 05:08
Hgb 9.7 g/dL (12.0-16.0) L 02/02/25 05:08
Hct 27.2 % (37.0-47.0) L 02/02/25 05:08
MCV 95.1 fL (81.0-99.0) 02/02/25 05:08
MCH 33.9 pg (27.0-31.0) H 02/02/25 05:08
MCHC 35.7 g/dL (33.0-37.0) 02/02/25 05:08
RDW 13.2 % (11.5-14.5) 02/02/25 05:08
Plt Count 149 10^3/uL (130-400) 02/02/25 05:08
MPV 10.3 fL (7.4-10.4) 02/02/25 05:08
Abs Immat Gran (auto) 0.0 10^3/uL (0-0.05) 02/01/25 06:13
Absolute Neuts (auto) 4.3 10^3/uL (1.4-6.5) 02/01/25 06:13
Absolute Lymphs (auto) 1.1 10^3/uL (1.2-3.4) L 02/01/25 06:13
Absolute Monos (auto) 0.5 10^3/uL (0.1-0.6) 02/01/25 06:13
Absolute Eos (auto) 0.1 10^3/uL (0-0.7) 02/01/25 06:13
Absolute Basos (auto) 0.0 10^3/uL (0-0.2) 02/01/25 06:13
Immature Gran % 0.3 % (0-0.5) 02/01/25 06:13
Neutrophils % 71.5 % (42.2-75.2) 02/01/25 06:13
Lymphocytes % 17.3 % (20.5-51.1) L 02/01/25 06:13
Monocytes % 8.4 % (1.7-9.3) 02/01/25 06:13
Eosinophils % 2.0 % (0-6) 02/01/25 06:13
Basophils % 0.5 % (0-2) 02/01/25 06:13
Creatinine 0.9 mg/dL (0.6-1.0) 02/02/25 05:08
Vital Signs
Vital Signs
Temp Pulse Resp BP Pulse Ox
98.4 F 100 18 156/90 98
02/02/25 07:30 02/02/25 07:30 02/02/25 07:30 02/02/25 07:30 02/02/25 07:30
[2025-02-02 12:17] LABS: APTT 150.5 Sec (23.4-35.0)
[2025-02-02] MEDS: MIRALAX 17 GRAMS PO ×2 (12:49→23:21)
--- NOTE | 2025-02-02 12:49 | W.PN.HOSP.TC ---
Today's Communication/Plan
-
Heparin drip, anticipate switching over to Eliquis tomorrow
Aggressive bowel regimen
Assessment / Plan
Assessment / Plan
Physical Exam
General: Well Developed, Well Nourished and No Apparent Distress
HEENT: NormoCephalic, Moist mucous membranes and Atraumatic
Respiratory: Clear
Cardiac: S1/S2 and Regular Rhythm; No Murmur or Rub
GI: Soft, Non Tender, Non Distended and Normal Bowel Sounds; No Organomegaly; no stool in ostomy
Rectal: Deferred by Provider
Musculoskeletal: No Clubbing, No Cyanosis and No Edema
Skin: No Rash
Neuro: Nonfocal/grossly intact
# Recurrent episode of acute toxic metabolic encephalopathy likely secondary to polypharmacy in the setting of failure to thrive/poor p.o. secondary to malignancy; resolved
-CT head shows no acute intracranial abnormality
-Urinalysis unremarkable
-Ammonia level negative
- Blood cultures pending
- On multiple sedating medications, decrease gabapentin back to 600 twice daily which was done previously
- gentle IV fluids
-MRI negative for acute cva/malignancy
# #Acute occlusive thrombus of the right sigmoid sinus
#Acute occlusive thrombus of the proximal right internal jugular vein
� Continue heparin drip, eventual Eliquis tomorrow
� Oncology consulted
# Nausea secondary to malignancy
#Pancreatic adenocarcinoma
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
#History of chemoembolization of right hepatic lobe
� Resolved
� Most likely secondary to large volume stool
-BM regimen - Miralax daily
-Zofran and Tigan given, patient did not tolerate IM Tigan so we used Zofran and Reglan in place of Compazine
-QTc of 459
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
- Patient was noted to having recurrence on imaging earlier this year.
- Pancreatic head biopsy also showing pancreatic adenocarcinoma
- Patient is being managed at [facility] oncology department
- Patient was planned to get lanreotide injection on 01/11 at [facility] office followed by initiation of PRRT/chemo on 02/08
- Continue buprenorphine/naloxone for pain
History of colon resection status post colostomy
- Ostomy output -monitor with bm regimen
Essential hypertension
Prior episode of orthostatic hypotension
Alcohol use disorder
- No longer drinks alcohol
Generalized anxiety/depression
- Continue bupropion
-Continue Adderall
Asthma
- Continue albuterol
History of basal cell carcinoma status post excision
History of migraine
History of drug-induced peripheral neuropathy
- Hold cyclobenzaprine
- Gabapentin dose decreased to 600 twice daily
History of hypothyroidism
History of lumbar radiculopathy
History of rectovaginal fistula status post repair
History of cervical fusion
Hypothyroidism
- Continue levothyroxine
Insomnia
- Hold trazodone
DNR/DNI
Prophylaxis�Lovenox
Regular diet
Total time spent on today's encounter was 53 minutes which included time spent in counseling the patient/family regarding diagnosis and treatment plan as listed above, goals of care, and symptom management. Case was discussed with nursing staff,
specialists, and care coordinators/case management. All labs and imaging personally reviewed by me. Remainder the time spent in detailed review of previous records, lab data, imaging, and other medical provider documentation.
Anticipated Discharge: 24 - 48 hours
Subjective/Interval History
-
Date of Service: February 02, 2025
Nausea vomiting is resolved. Patient feels constipated. No output in the ostomy. X-ray with stool with no evidence of obstruction.. Heparin drip was started for occlusive right IJ thrombus.
Objective Data
-
Labs:
Laboratory Results
02/02/25 02/02/25 02/02/25
03:01 05:08 11:39
WBC 7.6
Hgb 9.7 L
Hct 27.2 L
Plt Count 149
APTT > 200 H* 150.5 H*
Sodium 135
Potassium 3.5
Chloride 103
Carbon Dioxide 26
BUN 18 H
Creatinine 0.9
Glucose 82
Calcium 7.7 L
Total Bilirubin 0.8
AST 38 H
ALT 40 H
Alkaline Phosphatase 91
Vital Signs:
Vital Signs
Temp Pulse Resp BP Pulse Ox
98.2 F 103 16 157/99 99
02/02/25 11:30 02/02/25 11:30 02/02/25 11:30 02/02/25 11:30 02/02/25 11:30
I&O
02/01/25 02/02/25 02/03/25
06:59 06:59 06:59
Intake Total 840 / 840 3088 / 3088
Balance 840 / 840 3088 / 3088
Review of Systems
-
Respiratory: Reports No Symptoms
Cardiac: Reports No Symptoms
Abdomen/GI: Reports No Symptoms
Data Reviewed
-
CT Scan: Report Reviewed by me
Labs: Labs Reviewed by me
[2025-02-02] MEDS: ZOFRAN 4 MG IV (13:53)
[2025-02-02] MEDS: LIDOCAINE 4% PATCH 1 PATCH TOPICAL (14:39)
--- NOTE | 2025-02-02 15:19 | CM ---
Patient seen at bedside with her friend Valdemar & her brother Crow
tt from [facility] patient LOC change inpatient - IMM explained & signed. In chart
MRI completed - ACUTE OCCLUSIVE THROMBOSIS of the RIGHT SIGMOID SINUS and PROXIMAL RIGHT INTERNAL JUGULAR VEIN.
patient on heparin gtt - to transition to Eliquis per note
Coupon given to patient - attempted to call pharmacy for cost, unable to get through at this time
PT/OT to eval - patient feels as she needs SNF
PLAN: tbd, await PT/OT evals, CM to follow for needs
[2025-02-02 18:29] LABS: APTT 80.5 Sec (23.4-35.0)
[2025-02-02] MEDS: REMOVE LIDOCAINE PATCH 1 PATCH REMOVE (20:41)
[2025-02-02] MEDS: ADDERALL PO (20:41)
[2025-02-02] MEDS: ZYRTEC 10 MG PO (22:34)
[2025-02-03] VITALS (8 sets, daily range): BP systolic 116–146; BP diastolic 73–89
[2025-02-03 01:24] LABS: APTT 104.9 Sec (23.4-35.0)
[2025-02-03] MEDS: REGLAN 10 MG IV (02:13)
[2025-02-03] MEDS: SYNTHROID 75 MCG PO (05:49)
[2025-02-03] MEDS: HEPARIN 25000 UNITS/250 ML IV (05:58)
[2025-02-03 06:50] LABS: Hematocrit 26.6 % (37.0-47.0); Hemoglobin 9.3 g/dL (12.0-16.0); Mean Corp Hgb Conc. 35.0 g/dL (33.0-37.0); Mean Corpuscular Volume 94.7 fL (81.0-99.0); Platelet Count 134 10^3/uL (130-400); Red Cell Dist. Width 13.3 % (11.5-14.5)
[2025-02-03 07:22] LABS: ALT (SGPT) 41 U/L (0-35); AST (SGOT) 45 U/L (14-36); Albumin 2.8 g/dl (3.5-5.0); Alkaline Phosphatase 93 U/L (38-126); Blood Urea Nitrogen 18 mg/dl (7-17); Calcium 7.6 mg/dl (8.4-10.2); Carbon Dioxide 28 mmol/L (22-30); Chloride 103 mmol/L (98-107); Estimated Creatinine Clearance 63 ml/min; Glucose 89 mg/dl (70-99); Potassium 3.3 mmol/L (3.5-5.1); Sodium 134 mmol/L (135-145); Total Protein 5.7 g/dl (6.3-8.2); eGFR > 60.00
[2025-02-03 08:05] LABS: APTT 88.1 Sec (23.4-35.0)
[2025-02-03] MEDS: WELLBUTRIN XL (24 hour extended release) 450 MG PO (08:12)
[2025-02-03] MEDS: PEPCID 20 MG PO (08:14)
[2025-02-03] MEDS: ADDERALL 20 MG PO (08:14)
[2025-02-03] MEDS: NEURONTIN 600 MG PO ×2 (08:14→20:32)
[2025-02-03] MEDS: LOMOTIL 1 TABLET PO (08:15)
[2025-02-03] MEDS: NAPROSYN 500 MG PO (08:15)
[2025-02-03] MEDS: PROTONIX 40 MG PO (08:15)
[2025-02-03] MEDS: SUBUTEX 2 MG SL ×3 (08:16→21:13)
[2025-02-03] MEDS: VITAMIN D3 (cholecalciferol) 125 MCG PO (08:16)
[2025-02-03] MEDS: LIDOCAINE 4% PATCH 1 PATCH TOPICAL (08:17)
[2025-02-03] MEDS: MIRALAX 17 GRAMS PO ×2 (08:17→20:31)
[2025-02-03] MEDS: KCL ELIXIR 40 MEQ PO (08:17)
--- NOTE | 2025-02-03 09:58 | VNURNOTE ---
PM [facility] Resumption referral placed in [facility].
--- NOTE | 2025-02-03 11:14 | W.PN.ONC2 ---
Today's Communication / Plan
-
Anticipate switching to Eliquis today-per hospitalist.
Impression
Impression
#Acute cerebral venous sinus thrombosis
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
#Chemotherapy associated malignancy related hypercoagulability
#Nausea, dizziness, confusion -now resolved
Plan
Plan
- Patient with acute onset of nausea, dizziness and transient confusion, found to have acute occlusive thrombosis of right sigmoid sinus and proximal right internal jugular vein on MRI brain. Likely thrombotic event in the setting of advanced
malignancy given hypercoagulable state.
- Patient currently on heparin drip, with improvement in mental status and neurological function. Anticipate switching to Eliquis today.
- Patient's nausea and dizziness has improved. Was likely due to venous sinus thrombosis and associated increased intracranial pressure. Symptoms improving. Continue hydration.
- Ongoing management with lanreotide, Xermelo for metastatic colorectal carcinoma with neuroendocrine differentiation. Patient follows with Dr. Monisha Greene at [place]. Scheduled for PRRT with lutetium Tammi 177 on 02/08/25.
- Continue IV fluids for hydration, antiemetics for nausea.
- Patient to follow-up with Dr. Narayan at [facility].
Subjective/Objective
Subjective
Upon evaluation today, patient is feeling well. No new complaints.
Vital Signs:
Vital Signs
Temp Pulse Resp BP Pulse Ox
97.8 F 100 18 146/89 97
02/03/25 07:44 02/03/25 07:44 02/03/25 07:44 02/03/25 07:44 02/03/25 07:44
Lab Results:
Laboratory Data
WBC 3.9 10^3/uL (4.8-10.8) L 02/03/25 06:19
Hgb 9.3 g/dL (12.0-16.0) L 02/03/25 06:19
Plt Count 134 10^3/uL (130-400) 02/03/25 06:19
APTT 88.1 Sec (23.4-35.0) H 02/03/25 07:45
eGFR > 60.00 02/03/25 06:19
Physical Exam
HEENT: Moist Mucous Membranes
Cardiology: Normal Sinus Rhythm, S1 and S2
Pulmonary: Clear
GI: Soft and Normal Bowel Sounds
--- NOTE | 2025-02-03 12:39 | W.PN.HOSP.TC ---
Today's Communication/Plan
-
Eliquis
BM regimen
F/u Onc, pcp outpt
Assessment / Plan
Assessment / Plan
Physical Exam
General: Well Developed, Well Nourished and No Apparent Distress
HEENT: NormoCephalic, Moist mucous membranes and Atraumatic
Respiratory: Clear
Cardiac: S1/S2 and Regular Rhythm; No Murmur or Rub
GI: Soft, Non Tender, Non Distended and Normal Bowel Sounds; No Organomegaly; no stool in ostomy
Rectal: Deferred by Provider
Musculoskeletal: No Clubbing, No Cyanosis and No Edema
Skin: No Rash
Neuro: Nonfocal/grossly intact
# Recurrent episode of acute toxic metabolic encephalopathy likely secondary to polypharmacy in the setting of failure to thrive/poor p.o. secondary to malignancy; resolved
-CT head shows no acute intracranial abnormality
-Urinalysis unremarkable
-Ammonia level negative
- Blood cultures pending
- On multiple sedating medications, decrease gabapentin back to 600 twice daily which was done previously
- gentle IV fluids
-MRI negative for acute cva/malignancy
# #Acute occlusive thrombus of the right sigmoid sinus
#Acute occlusive thrombus of the proximal right internal jugular vein
� Continue heparin drip - switch to Eliquis today
� Oncology consulted - f/u outpt
#Hypokalemia
-monitor and replete
# Nausea secondary to malignancy
#Pancreatic adenocarcinoma
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
#History of chemoembolization of right hepatic lobe
� Resolved
� Most likely secondary to large volume stool
-BM regimen - Miralax daily
-Added milk of magnesia prn
-Zofran and Tigan given, patient did not tolerate IM Tigan so we used Zofran and Reglan in place of Compazine
-QTc of 459
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
- Patient was noted to having recurrence on imaging earlier this year.
- Pancreatic head biopsy also showing pancreatic adenocarcinoma
- Patient is being managed at [facility] oncology department
- Patient was planned to get lanreotide injection on 01/11 at [facility] office followed by initiation of PRRT/chemo on 02/08
- Continue buprenorphine/naloxone for pain
History of colon resection status post colostomy
- Ostomy output -monitor with bm regimen
Essential hypertension
Prior episode of orthostatic hypotension
Alcohol use disorder
- No longer drinks alcohol
Generalized anxiety/depression
- Continue bupropion
-Continue Adderall
Asthma
- Continue albuterol
History of basal cell carcinoma status post excision
History of migraine
History of drug-induced peripheral neuropathy
- Hold cyclobenzaprine
- Gabapentin dose decreased to 600 twice daily
History of hypothyroidism
History of lumbar radiculopathy
History of rectovaginal fistula status post repair
History of cervical fusion
Hypothyroidism
- Continue levothyroxine
Insomnia
- Hold trazodone
DNR/DNI
Prophylaxis�Lovenox
Regular diet
More than 30 minutes spent in discharge including
Final examination of the patient
Summarizing hospital stay
Instructions for continuing care to all relevant caregivers
Preparation of discharge records, prescriptions, and referral forms
Total time spent (in minutes): 36
Anticipated Discharge: Today
Subjective/Interval History
-
Date of Service: February 03, 2025
Feels like she has to have a bowel movement today
Objective Data
-
Labs:
Laboratory Results
02/03/25 02/03/25 02/03/25
00:42 06:19 07:45
WBC 3.9 L
Hgb 9.3 L
Hct 26.6 L
Plt Count 134
APTT 104.9 H 88.1 H
Sodium 134 L
Potassium 3.3 L
Chloride 103
Carbon Dioxide 28
BUN 18 H
Creatinine 0.8
Glucose 89
Calcium 7.6 L
Total Bilirubin 0.6
AST 45 H
ALT 41 H
Alkaline Phosphatase 93
Vital Signs:
Vital Signs
Temp Pulse Resp BP Pulse Ox
97.7 F 120 16 120/85 99
02/03/25 11:30 02/03/25 11:30 02/03/25 11:30 02/03/25 11:30 02/03/25 11:30
I&O
02/02/25 02/03/25 02/04/25
06:59 06:59 06:59
Intake Total 3088 / 3088 1280 / 1280
Output Total 310 / 310
Balance 3088 / 3088 970 / 970
Review of Systems
-
Respiratory: Reports No Symptoms
Cardiac: Reports No Symptoms
Abdomen/GI: Reports No Symptoms
Physical Exam
-
General: Negative Appears in Distress
HEENT: Negative Oxygen
Neuro: Awake, Alert, Oriented and No Motor Deficits
Data Reviewed
-
CT Scan: Report Reviewed by me
Labs: Labs Reviewed by me
--- NOTE | 2025-02-03 12:51 | W.DS.TRANS ---
DC Summary - General Clerk
-
Discharge Instructions:
Discharge Diagnosis/Procedures Constipation
Occlusive IJ vein thrombus
Diet Low Cholesterol,Low Fat
Activity As tolerated
Blood Work cbc and cmp in 1 week with pcp
Others Tests her per oncology outpt
Instructions:
Stand-Alone Forms:
Changes to Home Medications: Yes
Discharge Medications:
DC Medications w/original date entered in [employer]
omeprazole 20 mg capsule,delayed release 20 mg PO DAILY Gastrointestinal Issue 01/06/19
rizatriptan 10 mg tablet 10 mg PO DAILYPRN PRN migraine 01/06/19
albuterol sulfate 2.5 mg/3 mL (0.083 %) solution for nebulization 2.5 mg inhalation R Q4HPRN PRN wheeze 02/09/19
famotidine 20 mg tablet 20 mg PO DAILY Gastrointestinal Issue 02/09/19
cetirizine 10 mg tablet 10 mg PO HS Allergies 10/25/19
cyclobenzaprine 10 mg tablet 15 mg PO HS Muscle Spasms 10/25/19
diphenoxylate-atropine 2.5 mg-0.025 mg tablet 1 tab PO DAILY DIARRHEA 07/26/21
buprenorphine 2 mg-naloxone 0.5 mg sublingual tablet 1 tab sublingual TID #9 tabs 01/11/25
albuterol sulfate 90 mcg/actuation aerosol inhaler 2 puff inhalation R Q6HPRN PRN sob 01/31/25
bupropion HCl 150 mg 24 hr tablet, extended release (Wellbutrin XL) 450 mg PO DAILY Mental Health/Anxiety 01/31/25
cholecalciferol (vitamin D3) 125 mcg (5,000 unit) tablet (Vitamin D3) 125 mcg PO DAILY Supplement 01/31/25
dextroamphetamine sulfate 10 mg tablet 20 mg PO BID ADD 01/31/25
erenumab-aooe 140 mg/mL subcutaneous auto-injector (Aimovig Autoinjector) 140 mg SC QMONTH Antimigraine Agent 01/31/25
gabapentin 800 mg tablet 800 mg PO BID NEUROPATHIC PAIN 01/31/25
levothyroxine 75 mcg tablet (Synthroid) 75 mcg PO DAILY Thyroid 01/31/25
naproxen 500 mg tablet 500 mg PO BID Pain 01/31/25
prochlorperazine maleate 10 mg tablet (Compazine) 10 mg PO BIDPRN PRN nausea 01/31/25
simethicone 125 mg chewable tablet 125 mg PO QIDPRN PRN gas pains 01/31/25
telotristat ethyl 250 mg tablet (Xermelo) 250 mg PO TIDPRN PRN diarrhea 01/31/25
apixaban 5 mg (74 tabs) tablets in a dose pack (Eliquis DVT-PE Treat 30D Start) See Rx Instructions PO .COMPLEX #74 ea 02/03/25
magnesium hydroxide 400 mg/5 mL oral suspension (Milk of Magnesia) 5 ml PO DAILY PRN constipation #3,000 mL 02/03/25
polyethylene glycol 3350 17 gram oral powder packet 17 g PO DAILY #100 ea 02/03/25
Home Medication Changes
apixaban 5 mg (74 tabs) tablets in a dose pack (Eliquis DVT-PE Treat 30D Start) See Rx Instructions PO .COMPLEX #74 ea 02/03/25
magnesium hydroxide 400 mg/5 mL oral suspension (Milk of Magnesia) 5 ml PO DAILY PRN constipation #3,000 mL 02/03/25
polyethylene glycol 3350 17 gram oral powder packet 17 g PO DAILY #100 ea 02/03/25
Pending Results: No
[2025-02-03] MEDS: MILK OF MAGNESIA 30 ML PO (13:01)
[2025-02-03] MEDS: ELIQUIS 10 MG PO ×2 (13:01→21:12)
--- NOTE | 2025-02-03 13:36 | CM ---
Patient seen at bedside
coupon given to patient for Eliquis yesterday
CM spoke with Eli pharmacist [facility], [place] -[phone]
no co-pay per pharmacist - she also stated that they do not have the Eliquis starter slade at the [facility], but have it at the [facility] in [place]. Address & phone # of [facility] given to patient
IMM explained & signed. In chart
PT rec home health
Current with [facility] - notified liaision
PLAN: Home, with [facility]
friend to transport
[2025-02-03] MEDS: SENOKOT 8.6 MG PO ×2 (17:52→21:16)
[2025-02-03] MEDS: CITROMA 300 ML PO (17:52)
[2025-02-03] MEDS: ADDERALL PO (20:34)
[2025-02-03] MEDS: REMOVE LIDOCAINE PATCH 1 PATCH REMOVE (20:34)
[2025-02-03] MEDS: ZYRTEC 10 MG PO (21:13)
[2025-02-04 03:00] VITALS: BP 126/82
[2025-02-04] MEDS: SYNTHROID 75 MCG PO (06:04)
[2025-02-04 06:34] LABS: Hematocrit 29.8 % (37.0-47.0); Hemoglobin 10.4 g/dL (12.0-16.0); Mean Corp Hgb Conc. 34.9 g/dL (33.0-37.0); Mean Corpuscular Volume 97.4 fL (81.0-99.0); Platelet Count 145 10^3/uL (130-400); Red Cell Dist. Width 13.6 % (11.5-14.5)
[2025-02-04 06:55] LABS: ALT (SGPT) 54 U/L (0-35); AST (SGOT) 50 U/L (14-36); Albumin 3.3 g/dl (3.5-5.0); Alkaline Phosphatase 107 U/L (38-126); Blood Urea Nitrogen 27 mg/dl (7-17); Calcium 7.9 mg/dl (8.4-10.2); Carbon Dioxide 39 mmol/L (22-30); Chloride 92 mmol/L (98-107); Estimated Creatinine Clearance 51 ml/min; Glucose 105 mg/dl (70-99); Potassium 4.0 mmol/L (3.5-5.1); Sodium 133 mmol/L (135-145); Total Protein 6.4 g/dl (6.3-8.2); eGFR > 60.00
[2025-02-04 07:04] VITALS: BP 140/85
[2025-02-04] MEDS: MIRALAX 17 GRAMS PO ×2 (07:49→21:52)
[2025-02-04] MEDS: PROTONIX 40 MG PO (07:50)
[2025-02-04] MEDS: NEURONTIN 600 MG PO ×2 (07:50→21:49)
[2025-02-04] MEDS: WELLBUTRIN XL (24 hour extended release) 450 MG PO (07:50)
[2025-02-04] MEDS: SUBUTEX 2 MG SL ×3 (07:51→21:52)
[2025-02-04] MEDS: ADDERALL 20 MG PO (07:51)
[2025-02-04] MEDS: VITAMIN D3 (cholecalciferol) 125 MCG PO (07:51)
[2025-02-04] MEDS: PEPCID 20 MG PO (07:51)
[2025-02-04] MEDS: ELIQUIS 10 MG PO ×2 (07:51→21:50)
[2025-02-04] MEDS: LOMOTIL 1 TABLET PO (07:51)
[2025-02-04] MEDS: LIDOCAINE 4% PATCH 1 PATCH TOPICAL (07:52)
[2025-02-04] MEDS: ZOFRAN 4 MG IV (09:29)
[2025-02-04 11:11] VITALS: BP 148/84
[2025-02-04 11:48] VITALS: BP 141/89
[2025-02-04] MEDS: REGLAN 10 MG IV ×2 (12:05→21:00)
[2025-02-04] MEDS: OMNIPAQUE 50 ML PO (13:03)
--- NOTE | 2025-02-04 14:13 | W.PN.HOSP.TC ---
Today's Communication/Plan
-
ct a/p with contrast
bm regimen
Assessment / Plan
Assessment / Plan
Physical Exam
General: Well Developed, Well Nourished and No Apparent Distress
HEENT: NormoCephalic, Moist mucous membranes and Atraumatic
Respiratory: Clear
Cardiac: S1/S2 and Regular Rhythm; No Murmur or Rub
GI: Soft, Non Tender, Non Distended and Normal Bowel Sounds; No Organomegaly; no stool in ostomy
Rectal: Deferred by Provider
Musculoskeletal: No Clubbing, No Cyanosis and No Edema
Skin: No Rash
Neuro: Nonfocal/grossly intact
# Recurrent episode of acute toxic metabolic encephalopathy likely secondary to polypharmacy in the setting of failure to thrive/poor p.o. secondary to malignancy; resolved
-CT head shows no acute intracranial abnormality
-Urinalysis unremarkable
-Ammonia level negative
- Blood cultures pending
- On multiple sedating medications, decrease gabapentin back to 600 twice daily which was done previously
- gentle IV fluids
-MRI negative for acute cva/malignancy
# #Acute occlusive thrombus of the right sigmoid sinus
#Acute occlusive thrombus of the proximal right internal jugular vein
� heparin drip - switch to Eliquis 02/03
� Oncology consulted - f/u outpt
#Hypokalemia
-monitor and replete
# Nausea secondary to malignancy
#Pancreatic adenocarcinoma
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
#History of chemoembolization of right hepatic lobe
� Most likely secondary to large volume stool
-BM regimen - Miralax BID
-Added milk of magnesia prn
-had some output from ostomy although still distended and nauseaus - will obtain CT A/P with contrast
-KUB neg for obstruction
-Zofran and Tigan given, patient did not tolerate IM Tigan so we used Zofran and Reglan in place of Compazine
-QTc of 459
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
- Patient was noted to having recurrence on imaging earlier this year.
- Pancreatic head biopsy also showing pancreatic adenocarcinoma
- Patient is being managed at [facility] oncology department
- Patient was planned to get lanreotide injection on 01/11 at [facility] office followed by initiation of PRRT/chemo on 02/08
- Continue buprenorphine/naloxone for pain
History of colon resection status post colostomy
- Ostomy output -monitor with bm regimen
Essential hypertension
Prior episode of orthostatic hypotension
Alcohol use disorder
- No longer drinks alcohol
Generalized anxiety/depression
- Continue bupropion
-Continue Adderall
Asthma
- Continue albuterol
History of basal cell carcinoma status post excision
History of migraine
History of drug-induced peripheral neuropathy
- Hold cyclobenzaprine
- Gabapentin dose decreased to 600 twice daily
History of hypothyroidism
History of lumbar radiculopathy
History of rectovaginal fistula status post repair
History of cervical fusion
Hypothyroidism
- Continue levothyroxine
Insomnia
- Hold trazodone
DNR/DNI
Prophylaxis�Lovenox
Regular diet
Total time spent on today's encounter was 51 minutes which included time spent in counseling the patient/family regarding diagnosis and treatment plan as listed above, goals of care, and symptom management. Case was discussed with nursing staff,
specialists, and care coordinators/case management. All labs and imaging personally reviewed by me. Remainder the time spent in detailed review of previous records, lab data, imaging, and other medical provider documentation.
Anticipated Discharge: Within 24 hours
Subjective/Interval History
-
Date of Service: February 04, 2025
some stool and gas in ostomy this am. belly still distended. intermittent n/v.
Objective Data
-
Labs:
Laboratory Results
02/04/25
06:12
WBC 4.0 L
Hgb 10.4 L
Hct 29.8 L
Plt Count 145
Sodium 133 L
Potassium 4.0
Chloride 92 L
Carbon Dioxide 39 H
BUN 27 H
Creatinine 1.0
Glucose 105 H
Calcium 7.9 L
Total Bilirubin 0.4
AST 50 H
ALT 54 H
Alkaline Phosphatase 107
Vital Signs:
Vital Signs
Temp Pulse Resp BP Pulse Ox
97.7 F 91 18 141/89 98
02/04/25 11:48 02/04/25 11:48 02/04/25 11:48 02/04/25 11:48 02/04/25 11:48
I&O
02/03/25 02/04/25 02/05/25
06:59 06:59 06:59
Intake Total 1280 / 1280 480 / 480
Output Total 310 / 310 300 / 300
Balance 970 / 970 180 / 180
Review of Systems
-
Respiratory: Reports No Symptoms
Cardiac: Reports No Symptoms
Abdomen/GI: Reports No Symptoms
Data Reviewed
-
CT Scan: Report Reviewed by me
Labs: Labs Reviewed by me
--- NOTE | 2025-02-04 14:36 | W.PN.ONC2 ---
Documented by User: Tyra Vega MD, Resident 02/04/25 14:41
Today's Communication / Plan
-
CT abdomen/pelvis today- per primary team.
Continue Eliquis.
Follow up outpatient with Dr. Thacker at [facility].
Impression
Impression
#Acute cerebral venous sinus thrombosis
#Recurrent episode of acute toxic metabolic encephalopathy likely secondary to polypharmacy in the setting of FTT/poor oral intake secondary to malignancy - resolved
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
#Chemotherapy associated malignancy related hypercoagulability
#Nausea, dizziness, confusion -now resolved
Plan
Plan
- Patient with acute onset of nausea, dizziness and transient confusion, found to have acute occlusive thrombosis of right sigmoid sinus and proximal right internal jugular vein on MRI brain. Likely thrombotic event in the setting of advanced
malignancy given hypercoagulable state.
- Patient was on heparin drip with improvement in mental status and neurological function, switched over to Eliquis 02/03/25.
- Ongoing management with lanreotide, Xermelo for metastatic colorectal carcinoma with neuroendocrine differentiation. Patient follows with Dr. Monisha Greene at [facility]. Scheduled for PRRT with lutetium Tammi 177 on 02/08/25.
- Patient to follow-up with Dr. Narayan at [facility].
- Patient to have CT A/P performed today for abdominal distension/nausea.
- Continue pain control, nausea medications.
Subjective/Objective
Subjective
Upon evaluation of patient today, patient is feeling well. No new complaints.
Vital Signs:
Vital Signs
Temp Pulse Resp BP Pulse Ox
97.7 F 91 18 141/89 98
02/04/25 11:48 02/04/25 11:48 02/04/25 11:48 02/04/25 11:48 02/04/25 11:48
Lab Results:
Laboratory Data
WBC 4.0 10^3/uL (4.8-10.8) L 02/04/25 06:12
Hgb 10.4 g/dL (12.0-16.0) L 02/04/25 06:12
Plt Count 145 10^3/uL (130-400) 02/04/25 06:12
APTT 88.1 Sec (23.4-35.0) H 02/03/25 07:45
eGFR > 60.00 02/04/25 06:12
Physical Exam
HEENT: Moist Mucous Membranes
Cardiology: Normal Sinus Rhythm, S1 and S2
Pulmonary: Clear
GI: Soft and Normal Bowel Sounds

Documented by User: Scott Sykes MD 02/04/25 14:44
Plan
Plan
- Patient with acute onset of nausea, dizziness and transient confusion, found to have acute occlusive thrombosis of right sigmoid sinus and proximal right internal jugular vein on MRI brain. Likely thrombotic event in the setting of advanced
malignancy given hypercoagulable state.
- Patient was on heparin drip with improvement in mental status and neurological function, switched over to Eliquis 02/03/25.
- Ongoing management with lanreotide, Xermelo for metastatic colorectal carcinoma with neuroendocrine differentiation. Patient follows with Dr. Monisha Greene at [place]. Scheduled for PRRT with lutetium Tammi 177 on 02/08/25.
- Patient to follow-up with Dr. Narayan at [facility].
- Patient to have CT A/P performed today for abdominal distension/nausea.
- Continue pain control, nausea medications.
Oncology Addendum:
Patient seen and evaluated and agree w/ resident note and plan as outlined
-advanced neuroendocrine malignancy - followed at [facility] as well as w/ Dr. Thacker
-w/ new cerebral vein sinus thrombosis as well as thrombosis of right IJ - on DOAC
-abdominal pain - for CT imaging today
-f/u CT
[2025-02-04 15:27] VITALS: BP 135/87
--- NOTE | 2025-02-04 15:32 | CM ---
Patient for CT scan today, seen at bedside in [facility]. Patient plan for discharge is home with [facility] to follow, and has james caceres per chart review. CM will continue to follow for discharge planning needs.
Plan; home with [facility] to follow
[2025-02-04] MEDS: MAXALT MLT (ORALLY DISINTEGRATING) 10 MG PO (21:48)
[2025-02-04] MEDS: ZYRTEC 10 MG PO (21:50)
[2025-02-04] MEDS: SENOKOT 8.6 MG PO (21:51)
[2025-02-04] MEDS: ADDERALL PO (21:52)
[2025-02-04] MEDS: REMOVE LIDOCAINE PATCH 1 PATCH REMOVE (21:53)
[2025-02-04 23:00] VITALS: BP 127/81
[2025-02-05] MEDS: SYNTHROID 75 MCG PO (06:34)
[2025-02-05] MEDS: ELIQUIS 10 MG PO ×2 (08:49→21:04)
[2025-02-05] MEDS: NEURONTIN 600 MG PO ×2 (08:49→21:05)
[2025-02-05] MEDS: PEPCID 20 MG PO (08:49)
[2025-02-05] MEDS: VITAMIN D3 (cholecalciferol) 125 MCG PO (08:49)
[2025-02-05] MEDS: PROTONIX 40 MG PO (08:49)
[2025-02-05] MEDS: LIDOCAINE 4% PATCH 1 PATCH TOPICAL (08:50)
[2025-02-05] MEDS: MIRALAX 17 GRAMS PO ×2 (08:50→21:04)
[2025-02-05] MEDS: SUBUTEX 2 MG SL ×3 (08:59→21:06)
[2025-02-05] MEDS: ADDERALL 20 MG PO (08:59)
[2025-02-05] MEDS: LOMOTIL PO (09:00)
[2025-02-05 09:22] VITALS: BP 143/88
[2025-02-05 11:05] LABS: Hematocrit 29.6 % (37.0-47.0); Hemoglobin 10.0 g/dL (12.0-16.0); Mean Corp Hgb Conc. 33.8 g/dL (33.0-37.0); Mean Corpuscular Volume 97.7 fL (81.0-99.0); Platelet Count 180 10^3/uL (130-400); Red Cell Dist. Width 14.2 % (11.5-14.5)
[2025-02-05 11:22] LABS: ALT (SGPT) 47 U/L (0-35); AST (SGOT) 45 U/L (14-36); Albumin 3.4 g/dl (3.5-5.0); Alkaline Phosphatase 106 U/L (38-126); Blood Urea Nitrogen 24 mg/dl (7-17); Calcium 7.8 mg/dl (8.4-10.2); Carbon Dioxide 31 mmol/L (22-30); Chloride 95 mmol/L (98-107); Estimated Creatinine Clearance 46 ml/min; Glucose 131 mg/dl (70-99); Potassium 4.9 mmol/L (3.5-5.1); Sodium 131 mmol/L (135-145); Total Protein 6.6 g/dl (6.3-8.2); eGFR 56.81
[2025-02-05] MEDS: WELLBUTRIN XL (24 hour extended release) 450 MG PO (11:36)
--- NOTE | 2025-02-05 11:51 | W.PN.ONC ---
Today's Communication / Plan
-
Generally patient looking increasingly ill
Performance status declining
11 years from her diagnosis of metastatic disease
Discussed the possibility that her prognosis may be worsening
Small bowel dysfunction may be carcinomatosis
CT scan reviewed
Bowel regiment recommended
Carcinomatosis is often difficult to diagnose radiologically but certainly would be a reason to initiate palliative measures discussed
Impression
Impression
Acute cerebral venous sinus thrombosis
Metastatic neuroendocrine
Small bowel dysfunction possible carcinomatosis
Subjective/Objective
Subjective/Objective
Patient reports no abdominal pain today. Continued mild distention. Has had copious stool output from her ostomy overnight. She has tolerated a regular diet this morning.
Vital Signs:
Vital Signs
Temp Pulse Resp BP Pulse Ox
97.9 F 95 18 143/88 100
02/05/25 09:22 02/05/25 09:22 02/05/25 09:22 02/05/25 09:22 02/05/25 09:22
Physical exam
Heart regular
Lungs clear
Abdomen mildly protuberant
Lower extremities without edema
Lab Results:
Laboratory Data
WBC 4.3 10^3/uL (4.8-10.8) L 02/05/25 10:20
Hgb 10.0 g/dL (12.0-16.0) L 02/05/25 10:20
Plt Count 180 10^3/uL (130-400) D 02/05/25 10:20
APTT 88.1 Sec (23.4-35.0) H 02/03/25 07:45
eGFR 56.81 02/05/25 10:20
--- NOTE | 2025-02-05 13:20 | W.PN.HOSP.TC ---
Today's Communication/Plan
-
Abd US, MRCP
GI Consulted
Palliative discussions if n/v continues along with imaging findings
Assessment / Plan
Assessment / Plan
Physical Exam
General: Well Developed, Well Nourished and No Apparent Distress
HEENT: NormoCephalic, Moist mucous membranes and Atraumatic
Respiratory: Clear
Cardiac: S1/S2 and Regular Rhythm; No Murmur or Rub
GI: Soft, Non Tender, Non Distended and Normal Bowel Sounds; No Organomegaly; no stool in ostomy
Rectal: Deferred by Provider
Musculoskeletal: No Clubbing, No Cyanosis and No Edema
Skin: No Rash
Neuro: Nonfocal/grossly intact
# Recurrent episode of acute toxic metabolic encephalopathy likely secondary to polypharmacy in the setting of failure to thrive/poor p.o. secondary to malignancy; resolved
-CT head shows no acute intracranial abnormality
-Urinalysis unremarkable
-Ammonia level negative
- Blood cultures pending
- On multiple sedating medications, decrease gabapentin back to 600 twice daily which was done previously
- gentle IV fluids
-MRI negative for acute cva/malignancy
# #Acute occlusive thrombus of the right sigmoid sinus
#Acute occlusive thrombus of the proximal right internal jugular vein
� heparin drip - switch to Eliquis 02/03
� Oncology consulted - f/u outpt
#Hypokalemia
-monitor and replete
# Nausea secondary to malignancy
#Pancreatic adenocarcinoma
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
#History of chemoembolization of right hepatic lobe
� CT 02/04 - Concerning signs of possible SBO v Ileus, bilairy dilation and gallbladder wall enhancement, Severe pancreatic ductal dilation
-Concern for Carcinomatosis
-Most likely related to tumor burden
-Complete Abd US, MRCP, KUB
-GI Consulted
-Now with BMs with BM regimen
-BM regimen - Miralax BID
-Added milk of magnesia prn
-Concern for
-Zofran and Tigan given, patient did not tolerate IM Tigan so we used Zofran and Reglan in place of Compazine
-QTc of 459
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
- Patient was noted to having recurrence on imaging earlier this year.
- Pancreatic head biopsy also showing pancreatic adenocarcinoma
- Patient is being managed at [facility] oncology department
- Patient was planned to get lanreotide injection on 01/11 at [facility] office followed by initiation of PRRT/chemo on 02/08
- Continue buprenorphine/naloxone for pain
History of colon resection status post colostomy
- Ostomy output -monitor with bm regimen
Essential hypertension
Prior episode of orthostatic hypotension
Alcohol use disorder
- No longer drinks alcohol
Generalized anxiety/depression
- Continue bupropion
-Continue Adderall
Asthma
- Continue albuterol
History of basal cell carcinoma status post excision
History of migraine
History of drug-induced peripheral neuropathy
- Hold cyclobenzaprine
- Gabapentin dose decreased to 600 twice daily
History of hypothyroidism
History of lumbar radiculopathy
History of rectovaginal fistula status post repair
History of cervical fusion
Hypothyroidism
- Continue levothyroxine
Insomnia
- Hold trazodone
DNR/DNI
Prophylaxis�Lovenox
Regular diet
Total time spent on today's encounter was 55 minutes which included time spent in counseling the patient/family regarding diagnosis and treatment plan as listed above, goals of care, and symptom management. Case was discussed with nursing staff,
specialists, and care coordinators/case management. All labs and imaging personally reviewed by me. Remainder the time spent in detailed review of previous records, lab data, imaging, and other medical provider documentation.
Anticipated Discharge: > 48 hours
Subjective/Interval History
-
Date of Service: February 05, 2025
still with n/v - worsened;
Objective Data
-
Labs:
Laboratory Results
02/05/25
10:20
WBC 4.3 L
Hgb 10.0 L
Hct 29.6 L
Plt Count 180 D
Sodium 131 L
Potassium 4.9
Chloride 95 L
Carbon Dioxide 31 H
BUN 24 H
Creatinine 1.1 H
Glucose 131 H
Calcium 7.8 L
Total Bilirubin 0.6
AST 45 H
ALT 47 H
Alkaline Phosphatase 106
Vital Signs:
Vital Signs
Temp Pulse Resp BP Pulse Ox
97.9 F 95 18 143/88 100
02/05/25 09:22 02/05/25 09:22 02/05/25 09:22 02/05/25 09:22 02/05/25 09:22
I&O
02/04/25 02/05/25 02/06/25
06:59 06:59 06:59
Intake Total 480 / 480 480 / 480 240 / 240
Output Total 300 / 300
Balance 180 / 180 480 / 480 240 / 240
Review of Systems
-
Respiratory: Reports No Symptoms
Cardiac: Reports No Symptoms
Abdomen/GI: Reports No Symptoms
Data Reviewed
-
CT Scan: Report Reviewed by me
Labs: Labs Reviewed by me
--- NOTE | 2025-02-05 15:50 | CON.GI ---
Consultation
-
Date/Time Consultation Requested: 02/05/2025
Date/Time Consultation Performed: 02/05/2025
Requesting Provider: Hospitalist
Performing Provider: Liseth PARSONS
Reason for Consultation: SBO/bile duct dilatation
Medical History
Chief Complaint / HPI
Chief Complaint: Altered mental status
History of Present Illness:
64-year-old female with complex metastatic cancer admitted to ED 01/31/2025 with altered mental status. Patient was initially diagnosed with rectal adenocarcinoma back in 2023 and underwent neoadjuvant chemoradiation, surgical resection followed by
adjuvant chemo. She then developed pulmonary/hepatic mets and colon cancer with neuroendocrine differentiation s/p chemoembolization of right hepatic lobe/colonic resection with colostomy. Patient was recently diagnosed with pancreatic
adenocarcinoma at [facility] as well. Patient had similar episode back in December where she was admitted with acute toxic encephalopathy due to polypharmacy .
Patient is scheduled for PRRT therapy at [facility] on 02/08/2025. Patient follows with Dr. Thacker at [place], and Dr. Monisha Greene at [facility].
She follows with Dr. Wilver RODRIGUEZ as well.
GI was consulted today by medical team since no output was noted in the ostomy during this admission. Today patient claims she started having ostomy output after the increase the MiraLAX to twice daily. Denies any abdominal pain/nausea/vomiting.
Mental status back to baseline.
During this admission MRI showing acute occlusive thrombus in the right sigmoid sinus/proximal right internal jugular vein. Currently on Eliquis.
Past Medical History
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
disorder asthma basal cell carcinoma status post excision migraines hypothyroidism)
Allergies / Home Medications
Allergy/AdvReac Type Severity Reaction Status Date / Time
fluconazole (From Diflucan) Allergy Hives Verified 01/08/25 15:53
morphine Allergy VOMITING Verified 01/08/25 15:53
venom-honey bee Allergy Anaphylaxis Verified 02/01/25 18:28
venom-wasp Allergy Anaphylaxis Verified 02/01/25 18:45
environmental Allergy asthma Uncoded 01/08/25 15:53
�Medication �Instructions �Recorded
omeprazole 20 mg capsule,delayed 20 mg PO DAILY Gastrointestinal 01/06/19
release Issue
rizatriptan 10 mg tablet 10 mg PO DAILYPRN PRN migraine 01/06/19
albuterol sulfate 2.5 mg/3 mL 2.5 mg inhalation R Q4HPRN PRN 02/09/19
(0.083 %) solution for nebulization wheeze
famotidine 20 mg tablet 20 mg PO DAILY Gastrointestinal 02/09/19
Issue
cetirizine 10 mg tablet 10 mg PO HS Allergies 10/25/19
cyclobenzaprine 10 mg tablet 15 mg PO HS Muscle Spasms 10/25/19
diphenoxylate-atropine 2.5 1 tab PO DAILY DIARRHEA 07/26/21
mg-0.025 mg tablet
buprenorphine 2 mg-naloxone 0.5 mg 1 tab sublingual TID #9 tabs 01/11/25
sublingual tablet
albuterol sulfate 90 mcg/actuation 2 puff inhalation R Q6HPRN PRN sob 01/31/25
aerosol inhaler
bupropion HCl 150 mg 24 hr tablet, 450 mg PO DAILY Mental 01/31/25
extended release (Wellbutrin XL) Health/Anxiety
cholecalciferol (vitamin D3) 125 125 mcg PO DAILY Supplement 01/31/25
mcg (5,000 unit) tablet (Vitamin
D3)
dextroamphetamine sulfate 10 mg 20 mg PO BID ADD 01/31/25
tablet
erenumab-aooe 140 mg/mL 140 mg SC QMONTH Antimigraine Agent 01/31/25
subcutaneous auto-injector
(Aimovig Autoinjector)
gabapentin 800 mg tablet 800 mg PO BID NEUROPATHIC PAIN 01/31/25
levothyroxine 75 mcg tablet 75 mcg PO DAILY Thyroid 01/31/25
(Synthroid)
prochlorperazine maleate 10 mg 10 mg PO BIDPRN PRN nausea 01/31/25
tablet (Compazine)
simethicone 125 mg chewable tablet 125 mg PO QIDPRN PRN gas pains 01/31/25
telotristat ethyl 250 mg tablet 250 mg PO TIDPRN PRN diarrhea 01/31/25
(Xermelo)
apixaban 5 mg (74 tabs) tablets in See Rx Instructions PO .COMPLEX 02/03/25
a dose pack (Content Ramen DVT-PE Treat #74 ea
30D Start)
magnesium hydroxide 400 mg/5 mL 5 ml PO DAILY PRN constipation 02/03/25
oral suspension (Milk of Magnesia) #3,000 mL
polyethylene glycol 3350 17 gram 17 g PO DAILY #100 ea 02/03/25
oral powder packet
Review of Systems
Vital Signs
Temp Pulse Resp BP Pulse Ox
97.9 F 95 18 143/88 100
02/05/25 09:22 02/05/25 09:22 02/05/25 09:22 02/05/25 09:22 02/05/25 09:22
Physical Exam
Exam
General: Comfortable
Respiratory: Clear
Cardiac: S1/S2
GI: Soft, Non Tender, Distended and Other (ostomy + brown stool noted )
Neuro: AO x 3
Results
WBC 4.3 10^3/uL (4.8-10.8) L 02/05/25 10:20
Hgb 10.0 g/dL (12.0-16.0) L 02/05/25 10:20
Hct 29.6 % (37.0-47.0) L 02/05/25 10:20
MCV 97.7 fL (81.0-99.0) 02/05/25 10:20
Plt Count 180 10^3/uL (130-400) D 02/05/25 10:20
Absolute Neuts (auto) 4.3 10^3/uL (1.4-6.5) 02/01/25 06:13
APTT 88.1 Sec (23.4-35.0) H 02/03/25 07:45
Sodium 131 mmol/L (135-145) L 02/05/25 10:20
Potassium 4.9 mmol/L (3.5-5.1) 02/05/25 10:20
Chloride 95 mmol/L (98-107) L 02/05/25 10:20
Carbon Dioxide 31 mmol/L (22-30) H 02/05/25 10:20
BUN 24 mg/dl (7-17) H 02/05/25 10:20
Creatinine 1.1 mg/dL (0.6-1.0) H 02/05/25 10:20
Calcium 7.8 mg/dl (8.4-10.2) L 02/05/25 10:20
Total Bilirubin 0.6 mg/dl (0.2-1.3) 02/05/25 10:20
AST 45 U/L (14-36) H 02/05/25 10:20
ALT 47 U/L (0-35) H 02/05/25 10:20
Alkaline Phosphatase 106 U/L (38-126) 02/05/25 10:20
Diagnostic Image Results:
CT abd/ pel with IV cont 02/04/2025
IMPRESSION: Mild small bowel dilatation concerning for ileus versus developing small bowel obstruction. Progressed. A KUB in the morning is recommended to see if contrast passes through to the colostomy bag which would exclude obstruction..
Gallstones. Increased in size and number. New gallbladder sludge. New extrahepatic biliary dilatation and gallbladder wall enhancement. Acute cholecystitis not excluded. This would better be evaluated by abdominal ultrasound.
Multiple bilateral lower lobe pulmonary nodules consistent with pulmonary metastasis. Significantly increased in number and size.
Hypodense hepatic lesions. Increased in size and number. Known hepatic metastasis.
New pancreatic atrophy and severe pancreatic ductal dilatation. Pancreatic mass not definitively visualized but should be considered. This would better be evaluated by MRCP examination. New.
Colon containing umbilical hernia. Stable. No evidence of incarceration or strangulation.
Large amount of fecal material in the colon. Progressed.
Left anterior abdominal wall colostomy. Stable
Soft tissue foci in the subcutaneous tissues of the buttocks bilaterally probably injection granulomas. Increased in size and number. Metastatic deposits not excluded.
MRI abdomen 02/05/2025
IMPRESSION:
Obstructing pancreatic head/proximal body mass consistent with neoplasm.
Worsening infiltrative hepatic metastatic disease.
There are a few small scattered peripancreatic lymph nodes, possibly locoregional metastatic disease.
Bibasilar pulmonary metastases.
Cholelithiasis without MR evidence for acute cholecystitis.
S
Prior GI Procedures:
EGD: 12/2022
Impression: - No gross lesions in the entire esophagus.
- Z-line regular, 40 cm from the incisors. Biopsied.
- A few gastric polyps. Biopsied.
- Normal examined duodenum.
Colonoscopy: 12/2022 through colostomy
Impression: - Preparation of the colon was poor.
- Stool in the entire examined colon.
- Normal mucosa in the entire examined colon. Biopsied.
Assessment / Plan
-
Assessment
--Metastatic cancer- rectal adenocarcinoma back in 2023 and underwent neoadjuvant chemoradiation, surgical resection followed by adjuvant chemo. She then developed pulmonary/hepatic mets and colon cancer with neuroendocrine differentiation s/p
chemoembolization of right hepatic lobe/colonic resection with colostomy. Patient was recently diagnosed with pancreatic adenocarcinoma at [facility] .
--Toxic metabolic encephalopathy-recurrent
- - New Acute occlusive thrombus right sigmoid sinus/proximal right internal jugular vein- on eliquis
-- Ileus versus small bowel obstruction -concern for carcinomatosis
-- CT imaging suggestive of dilated biliary duct/pancreatic duct. History of pancreatic cancer. Mildly elevated AST/ALT. But normal alkaline phosphatase/total bilirubin
plan
Patient is currently having ostomy output. tolerating diet. Continue MiraLAX twice daily
Okay to use mag citrate as needed
No acute indication for biliary decompression with normal alkaline phosphatase/total bilirubin.
Will recommend continued follow-up with oncology at [facility]
Goals of care/palliative discussion as per medical team/oncology
No further recommendation. Will sign off
Total Time Spent with Patient (in minutes): 55
-
-
Thank you for consultation and allowing me to participate in the patient's care. Please call the [facility] physician during the after hours with any questions or concerns.
[2025-02-05] MEDS: LR 1000 IV (15:53)
[2025-02-05 16:56] VITALS: BP 150/94
--- NOTE | 2025-02-05 17:25 | PTCARENOTE ---
PT sent down for Abd US, MRCP and abdominal xray. PT emotionally upset about poor progrnosis, emotional support given.
[2025-02-05] MEDS: ADDERALL PO (21:03)
[2025-02-05] MEDS: SENOKOT 8.6 MG PO (21:04)
[2025-02-05] MEDS: ZYRTEC 10 MG PO (21:05)
[2025-02-05] MEDS: REMOVE LIDOCAINE PATCH REMOVE ×2 (21:08→21:16)
[2025-02-05 23:00] VITALS: BP 115/86
[2025-02-06] MEDS: LR 1000 IV (05:00)
[2025-02-06] MEDS: SYNTHROID 75 MCG PO (05:07)
[2025-02-06 07:47] VITALS: BP 151/84
[2025-02-06 07:50] LABS: Hematocrit 25.5 % (37.0-47.0); Hemoglobin 9.1 g/dL (12.0-16.0); Mean Corp Hgb Conc. 35.7 g/dL (33.0-37.0); Mean Corpuscular Volume 94.4 fL (81.0-99.0); Platelet Count 158 10^3/uL (130-400); Red Cell Dist. Width 14.0 % (11.5-14.5)
[2025-02-06 08:15] LABS: ALT (SGPT) 49 U/L (0-35); AST (SGOT) 43 U/L (14-36); Albumin 2.8 g/dl (3.5-5.0); Alkaline Phosphatase 114 U/L (38-126); Blood Urea Nitrogen 19 mg/dl (7-17); Calcium 7.7 mg/dl (8.4-10.2); Carbon Dioxide 28 mmol/L (22-30); Chloride 102 mmol/L (98-107); Estimated Creatinine Clearance 56 ml/min; Glucose 85 mg/dl (70-99); Potassium 4.4 mmol/L (3.5-5.1); Sodium 133 mmol/L (135-145); Total Protein 5.6 g/dl (6.3-8.2); eGFR > 60.00
[2025-02-06] MEDS: LIDOCAINE 4% PATCH 1 PATCH TOPICAL (08:19)
[2025-02-06] MEDS: NEURONTIN 600 MG PO ×2 (08:20→22:05)
[2025-02-06] MEDS: PROTONIX 40 MG PO (08:20)
[2025-02-06] MEDS: VITAMIN D3 (cholecalciferol) 125 MCG PO (08:20)
[2025-02-06] MEDS: PEPCID 20 MG PO (08:20)
[2025-02-06] MEDS: ELIQUIS 10 MG PO ×2 (08:21→22:04)
[2025-02-06] MEDS: MIRALAX 17 GRAMS PO ×2 (08:21→22:05)
[2025-02-06] MEDS: WELLBUTRIN XL (24 hour extended release) 450 MG PO (08:21)
[2025-02-06] MEDS: SUBUTEX 2 MG SL ×3 (08:21→22:07)
[2025-02-06] MEDS: LOMOTIL PO (08:21)
[2025-02-06] MEDS: ADDERALL 20 MG PO (08:21)
--- NOTE | 2025-02-06 10:26 | W.PN.ONC ---
Today's Communication / Plan
-
We had a lengthy discussion reviewing her recent scans and current condition.
She has agreed to consider hospice at this time which is appropriate
Impression
Impression
Acute cerebral venous sinus thrombosis
Metastatic neuroendocrine
Small bowel dysfunction possible carcinomatosis
Plan
Plan
- Patient with acute onset of nausea, dizziness and transient confusion, found to have acute occlusive thrombosis of right sigmoid sinus and proximal right internal jugular vein on MRI brain. Likely thrombotic event in the setting of advanced
malignancy given hypercoagulable state.
- Patient was on heparin drip with improvement in mental status and neurological function, switched over to Eliquis 02/03/25.
- Ongoing management with lanreotide, Xermelo for metastatic colorectal carcinoma with neuroendocrine differentiation. Patient follows with Dr. Monisha Greene at [place] [facility]. Scheduled for PRRT with lutetium Tammi 177 on 02/08/25.
- Patient to follow-up with Dr. Narayan at [facility].
- Patient to have CT A/P performed today for abdominal distension/nausea.
- Continue pain control, nausea medications.
Oncology Addendum:
Patient seen and evaluated and agree w/ resident note and plan as outlined
-advanced neuroendocrine malignancy - followed at [facility] as well as w/ Dr. Thacker
-w/ new cerebral vein sinus thrombosis as well as thrombosis of right IJ - on DOAC
-abdominal pain - for CT imaging today
-f/u CT
Subjective/Objective
Subjective/Objective
Continues to have waxing and waning mid abdominal discomfort and nausea. No additional emesis.
Vital Signs:
Vital Signs
Temp Pulse Resp BP Pulse Ox
98.5 F 92 16 151/84 98
02/06/25 07:47 02/06/25 07:47 02/06/25 07:47 02/06/25 07:47 02/06/25 07:47
Physical exam: Unchanged
Lab Results:
Laboratory Data
WBC 3.9 10^3/uL (4.8-10.8) L 02/06/25 06:53
Hgb 9.1 g/dL (12.0-16.0) L 02/06/25 06:53
Plt Count 158 10^3/uL (130-400) 02/06/25 06:53
APTT 88.1 Sec (23.4-35.0) H 02/03/25 07:45
eGFR > 60.00 02/06/25 06:53
[2025-02-06] MEDS: SUBUTEX 1 MG SL (12:28)
--- NOTE | 2025-02-06 13:01 | W.PN.HOSP.TC ---
Today's Communication/Plan
-
monitor n/v
Hospice consultation
Assessment / Plan
Assessment / Plan
Physical Exam
General: Well Developed, Well Nourished and No Apparent Distress
HEENT: NormoCephalic, Moist mucous membranes and Atraumatic
Respiratory: Clear
Cardiac: S1/S2 and Regular Rhythm; No Murmur or Rub
GI: Soft, Non Tender, Non Distended and Normal Bowel Sounds; No Organomegaly; no stool in ostomy
Rectal: Deferred by Provider
Musculoskeletal: No Clubbing, No Cyanosis and No Edema
Skin: No Rash
Neuro: Nonfocal/grossly intact
# Recurrent episode of acute toxic metabolic encephalopathy likely secondary to polypharmacy in the setting of failure to thrive/poor p.o. secondary to malignancy; resolved
-CT head shows no acute intracranial abnormality
-Urinalysis unremarkable
-Ammonia level negative
- Blood cultures pending
- On multiple sedating medications, decrease gabapentin back to 600 twice daily which was done previously
- gentle IV fluids
-MRI negative for acute cva/malignancy
# #Acute occlusive thrombus of the right sigmoid sinus
#Acute occlusive thrombus of the proximal right internal jugular vein
� heparin drip - switch to Eliquis 02/03
� Oncology consulted - f/u outpt
#Hypokalemia
-monitor and replete
# Nausea secondary to malignancy
#Pancreatic adenocarcinoma
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
#History of chemoembolization of right hepatic lobe
� CT 02/04 - Concerning signs of possible SBO v Ileus, bilairy dilation and gallbladder wall enhancement, Severe pancreatic ductal dilation
-Concern for Carcinomatosis
-Most likely related to tumor burden
-Complete Abd US, MRCP, KUB - evidence of tumor burden rather than infection or stone
-GI Consulted
-Now with BMs with BM regimen
-BM regimen - Miralax BID
-Added milk of magnesia prn
-Zofran and Tigan given, patient did not tolerate IM Tigan so we used Zofran and Reglan in place of Compazine
-QTc of 459
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
- Patient was noted to having recurrence on imaging earlier this year.
- Pancreatic head biopsy also showing pancreatic adenocarcinoma
- Patient is being managed at [facility] oncology department
- Patient was planned to get lanreotide injection on 01/[address] [facility] office followed by initiation of PRRT/chemo on 02/08
- Continue buprenorphine/naloxone for pain
-CM for Hospice consulted
History of colon resection status post colostomy
- Ostomy output -monitor with bm regimen
Essential hypertension
Prior episode of orthostatic hypotension
Alcohol use disorder
- No longer drinks alcohol
Generalized anxiety/depression
- Continue bupropion
-Continue Adderall
Asthma
- Continue albuterol
History of basal cell carcinoma status post excision
History of migraine
History of drug-induced peripheral neuropathy
- Hold cyclobenzaprine
- Gabapentin dose decreased to 600 twice daily
History of hypothyroidism
History of lumbar radiculopathy
History of rectovaginal fistula status post repair
History of cervical fusion
Hypothyroidism
- Continue levothyroxine
Insomnia
- Hold trazodone
DNR/DNI
Prophylaxis�Lovenox
Regular diet
Total time spent on today's encounter was 51 minutes which included time spent in counseling the patient/family regarding diagnosis and treatment plan as listed above, goals of care, and symptom management. Case was discussed with nursing staff,
specialists, and care coordinators/case management. All labs and imaging personally reviewed by me. Remainder the time spent in detailed review of previous records, lab data, imaging, and other medical provider documentation.
Anticipated Discharge: Within 24 hours
Subjective/Interval History
-
Date of Service: February 06, 2025
tolerated diet this am although nauseous during exam
Objective Data
-
Labs:
Laboratory Results
02/06/25
06:53
WBC 3.9 L
Hgb 9.1 L
Hct 25.5 L
Plt Count 158
Sodium 133 L
Potassium 4.4
Chloride 102
Carbon Dioxide 28
BUN 19 H
Creatinine 0.9
Glucose 85
Calcium 7.7 L
Total Bilirubin 0.8
AST 43 H
ALT 49 H
Alkaline Phosphatase 114
Vital Signs:
Vital Signs
Temp Pulse Resp BP Pulse Ox
98.5 F 92 16 151/84 98
02/06/25 07:47 02/06/25 07:47 02/06/25 07:47 02/06/25 07:47 02/06/25 07:47
I&O
02/05/25 02/06/25 02/07/25
06:59 06:59 06:59
Intake Total 480 / 480 1572 / 1572
Balance 480 / 480 1572 / 1572
Review of Systems
-
Respiratory: Reports No Symptoms
Cardiac: Reports No Symptoms
Abdomen/GI: Reports No Symptoms
Physical Exam
-
General: Negative Appears in Distress
HEENT: Negative Oxygen
Neuro: Awake, Alert, Oriented and No Motor Deficits
Data Reviewed
-
CT Scan: Report Reviewed by me
Labs: Labs Reviewed by me
--- NOTE | 2025-02-06 13:29 | CM ---
CM consult complete-hospice
options reviewed-prefer hospice
tt April Garnett liaison - referral entered in [facility]
PLAN: Hospice eval
--- NOTE | 2025-02-06 14:45 | HOSPNOTE ---
Addendum entered by Yazmin Garnett RN 02/06/25 15:27:
Spoke to patient at length. Friends who are her support system also involved in conversation. Patient is agreeable to hospice services. Plan is for her to meet with ostomy nurse tomorrow and then d/c home with friend to drive her. We will then meet
her Friday at noon to sign her onto hospice services. She does live alone and her plan will be to hire 24h paid caregivers when needed. CM, Attending, and Primary nurse updated.
Original Note:
Hospice referral received. Called patient to discuss. Voicemail left. Await return call. ALMAZ, Primary RN and Attending updated.
[2025-02-06 15:03] VITALS: BP 154/93; PULSE 104
--- NOTE | 2025-02-06 15:51 | CM ---
Patient agreeable to hospice (see hospice note)
patient to meet with [facility] tomorrow and then dc home
hospice will meet her Wednesday 02/07 at noon to sign her onto hospice services.
patient lives alone and has supportive friends & will hire 24hr private caregivers when needed.
PLAN: Home tomorrow once seen by wound nurse, hospice will meet patient on 02/07 at noon and sign on hospice svs
friend Valdemar to transport
[2025-02-06 15:55] VITALS: BP 150/98
[2025-02-06] MEDS: ADDERALL PO (22:04)
[2025-02-06] MEDS: SENOKOT 8.6 MG PO (22:06)
[2025-02-06] MEDS: REMOVE LIDOCAINE PATCH 1 PATCH REMOVE (22:06)
[2025-02-06] MEDS: FLUSH (NSS) 1 FLUSH IV (22:07)
[2025-02-06] MEDS: ZYRTEC 10 MG PO (22:07)
[2025-02-06 23:00] VITALS: BP 147/97
[2025-02-07] MEDS: SYNTHROID 75 MCG PO (05:14)
[2025-02-07] MEDS: ZOFRAN 4 MG IV (05:16)
[2025-02-07] MEDS: FLUSH (NSS) 2 FLUSH IV (05:18)
[2025-02-07 07:00] VITALS: BP 140/82
[2025-02-07 08:19] LABS: Hematocrit 24.3 % (37.0-47.0); Hemoglobin 8.5 g/dL (12.0-16.0); Mean Corp Hgb Conc. 35.0 g/dL (33.0-37.0); Mean Corpuscular Volume 93.8 fL (81.0-99.0); Platelet Count 150 10^3/uL (130-400); Red Cell Dist. Width 13.7 % (11.5-14.5)
[2025-02-07] MEDS: LOMOTIL 1 TABLET PO (08:33)
[2025-02-07] MEDS: ELIQUIS 10 MG PO (08:34)
[2025-02-07] MEDS: WELLBUTRIN XL (24 hour extended release) 450 MG PO (08:34)
[2025-02-07] MEDS: ADDERALL 20 MG PO (08:34)
[2025-02-07] MEDS: NEURONTIN 600 MG PO (08:34)
[2025-02-07] MEDS: PROTONIX 40 MG PO (08:34)
[2025-02-07] MEDS: VITAMIN D3 (cholecalciferol) 125 MCG PO (08:34)
[2025-02-07] MEDS: PEPCID 20 MG PO (08:35)
[2025-02-07] MEDS: SUBUTEX 2 MG SL (08:35)
[2025-02-07] MEDS: LIDOCAINE 4% PATCH 1 PATCH TOPICAL (08:35)
[2025-02-07] MEDS: MIRALAX 17 GRAMS PO (08:35)
[2025-02-07 09:14] LABS: ALT (SGPT) 53 U/L (0-35); AST (SGOT) 45 U/L (14-36); Albumin 2.8 g/dl (3.5-5.0); Alkaline Phosphatase 116 U/L (38-126); Blood Urea Nitrogen 16 mg/dl (7-17); Calcium 8.1 mg/dl (8.4-10.2); Carbon Dioxide 30 mmol/L (22-30); Chloride 102 mmol/L (98-107); Estimated Creatinine Clearance 56 ml/min; Glucose 109 mg/dl (70-99); Potassium 4.4 mmol/L (3.5-5.1); Sodium 136 mmol/L (135-145); Total Protein 5.7 g/dl (6.3-8.2); eGFR > 60.00
--- NOTE | 2025-02-07 09:49 | W.PN.ONC2 ---
Today's Communication / Plan
-
Patient has agreed to hospice at this time.
Impression
Impression
Acute cerebral venous sinus thrombosis
Metastatic neuroendocrine
Small bowel dysfunction possible carcinomatosis
Plan
Plan
- Patient with acute onset of nausea, dizziness and transient confusion, found to have acute occlusive thrombosis of right sigmoid sinus and proximal right internal jugular vein on MRI brain. Likely thrombotic event in the setting of advanced
malignancy given hypercoagulable state.
- Patient was on heparin drip with improvement in mental status and neurological function, switched over to Eliquis 02/03/25.
- Bowel dysfunction concerning for carcinomatosis.
- Patient follows with Dr. Monisha Greene at [place], and Dr. Thacker at [place]. Patient requesting cancellation of appointment for treatment at [place] on 02/09/25, and rather requests time at the end of the day to 'get closure' with Dr. Thacker.
- Overall status declining, patient agreeing to hospice at this time.
Subjective/Objective
Subjective
Upon evaluation of patient today, patient feels well. No new complaints.
Vital Signs:
Vital Signs
Temp Pulse Resp BP Pulse Ox
97.9 F 94 14 140/82 100
02/07/25 07:00 02/07/25 07:00 02/07/25 07:00 02/07/25 07:00 02/07/25 07:00
Lab Results:
Laboratory Data
WBC 3.7 10^3/uL (4.8-10.8) L 02/07/25 07:16
Hgb 8.5 g/dL (12.0-16.0) L 02/07/25 07:16
Plt Count 150 10^3/uL (130-400) 02/07/25 07:16
APTT 88.1 Sec (23.4-35.0) H 02/03/25 07:45
eGFR > 60.00 02/07/25 07:16
Physical Exam
HEENT: Moist Mucous Membranes
Cardiology: Normal Sinus Rhythm, S1 and S2
Pulmonary: Clear
GI: Soft and Normal Bowel Sounds
--- NOTE | 2025-02-07 10:51 | W.DS.TRANS ---
DC Summary - Health Coordinator
-
Discharge Instructions:
Discharge Diagnosis/Procedures Constipation
Occlusive IJ vein thrombus
Diet Low Cholesterol,Low Fat
Activity As tolerated
Driving Restrictions No driving
Instructions:
Stand-Alone Forms:
Changes to Home Medications: No
Discharge Medications:
DC Medications w/original date entered in [employer]
rizatriptan 10 mg tablet 10 mg PO DAILYPRN PRN migraine 01/06/19
albuterol sulfate 2.5 mg/3 mL (0.083 %) solution for nebulization 2.5 mg inhalation R Q4HPRN PRN wheeze 02/09/19
famotidine 20 mg tablet 20 mg PO DAILY Gastrointestinal Issue 02/09/19
cetirizine 10 mg tablet 10 mg PO HS Allergies 10/25/19
cyclobenzaprine 10 mg tablet 15 mg PO HS Muscle Spasms 10/25/19
diphenoxylate-atropine 2.5 mg-0.025 mg tablet 1 tab PO DAILY DIARRHEA 07/26/21
buprenorphine 2 mg-naloxone 0.5 mg sublingual tablet 1 tab sublingual TID #9 tabs 01/11/25
albuterol sulfate 90 mcg/actuation aerosol inhaler 2 puff inhalation R Q6HPRN PRN sob 01/31/25
dextroamphetamine sulfate 10 mg tablet 20 mg PO BID ADD 01/31/25
erenumab-aooe 140 mg/mL subcutaneous auto-injector (Aimovig Autoinjector) 140 mg SC QMONTH Antimigraine Agent 01/31/25
gabapentin 800 mg tablet 800 mg PO BID NEUROPATHIC PAIN 01/31/25
levothyroxine 75 mcg tablet (Synthroid) 75 mcg PO DAILY Thyroid 01/31/25
prochlorperazine maleate 10 mg tablet (Compazine) 10 mg PO BIDPRN PRN nausea 01/31/25
simethicone 125 mg chewable tablet 125 mg PO QIDPRN PRN gas pains 01/31/25
telotristat ethyl 250 mg tablet (Xermelo) 250 mg PO TIDPRN PRN diarrhea 01/31/25
magnesium hydroxide 400 mg/5 mL oral suspension (Milk of Magnesia) 5 ml PO DAILY PRN constipation #3,000 mL 02/03/25
polyethylene glycol 3350 17 gram oral powder packet 17 g PO DAILY #100 ea 02/03/25
Home Medication Changes
Pending Results: No
--- NOTE | 2025-02-07 10:53 | CM ---
Patient seen at bedside with friend Valdemar
Katiuska MERRILL visited patient this am regarding ostomy supplies
IMM explained & signed. In chart
Patient to discharge today, Hospice will admit patient tomorrow at noon
patient has support at home with friends, will hire 24hr when needed
PLAN: home, Hospice to admit to Hospice services tomorrow at noon
friend Valdemar to transport
--- NOTE | 2025-02-07 11:10 | WOUNDNOTE ---
WON RN NOTE: Asked to see patient before she goes home on hospice for Colostomy needs. Sat down with patient and reviewed what patients current regimen is and what she needs. Patient currently using a one piece drainable Coloplast appliance with EZ
vent. Patient requests trying a clamp with 2 3/4' 2 piece, closed end one piece and 2 piece. She states she does like the ease with a one piece but willing to try different options for the future. Patient's main concern is her neuropathy in hands
and towards end may not be able to manage Velcro closure, along with caregivers. 2 friends at bedside who are a support for patient and will assist her at home as needed. Showed patient clamps from [employer], [employer] and [employer] and had patient
open and close, sample of clamps and pouch without Velcro closure, given to patient. One piece Coloplast and 2 piece drainable Jeet appliances ordered from [facility] to take home. Also will call [employer] to send samples of non drainable 2 piece and
one piece. Instructed patient that if she prefers another type of pouch after trying samples can order those with next supplies. CM aware of the above and that patient can be discharged once she gets supplies from [facility].
[2025-02-07 11:11] VITALS: BP 126/74
--- NOTE | 2025-02-07 11:40 | W.PN.HOSP.TC ---
Today's Communication/Plan
-
Discharge
Assessment / Plan
Assessment / Plan
Gen-AAOx3, NAD
HEENT-NC, AT, anicteric, clear oral mm
Neck-supple
CV-reg, no M, +S1/S2
Lungs-clear B/L
Abd-soft, NT, ND
Ext-no edema
Musculoskeletal-no cyanosis, clubbing
Skin-warm and dry
Neuro-grossly non-focal
Psych-calm, cooperative
Recurrent episode of acute toxic metabolic encephalopathy likely secondary to polypharmacy in the setting of failure to thrive/poor p.o. secondary to malignancy; resolved
-CT head shows no acute intracranial abnormality
-Urinalysis unremarkable
-Ammonia level negative
- Blood cultures negative
- On multiple sedating medications, decrease gabapentin back to 600 twice daily which was done previously
- gentle IV fluids
-MRI negative for acute cva/malignancy
Acute occlusive thrombus of the right sigmoid sinus
Acute occlusive thrombus of the proximal right internal jugular vein -currently on Eliquis but will discontinue on discharge given plans for hospice. Patient agrees.
Hypokalemia
-monitor and replete
Nausea secondary to malignancy
Pancreatic adenocarcinoma
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
History of chemoembolization of right hepatic lobe
� CT 02/04 - Concerning signs of possible SBO v Ileus, bilairy dilation and gallbladder wall enhancement, Severe pancreatic ductal dilation
-Concern for Carcinomatosis
-Most likely related to tumor burden
-Zofran and Tigan given, patient did not tolerate IM Tigan so we used Zofran and Reglan in place of Compazine
-QTc of 459
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
- Patient was noted to having recurrence on imaging earlier this year.
- Pancreatic head biopsy also showing pancreatic adenocarcinoma
- Patient is being managed at [facility] oncology department
- Patient was planned to get lanreotide injection on 01/11 at [facility] office followed by initiation of PRRT/chemo on 02/08
- Continue buprenorphine/naloxone for pain
History of colon resection status post colostomy
- Ostomy output -monitor with bm regimen
Essential hypertension
Prior episode of orthostatic hypotension
Alcohol use disorder
- No longer drinks alcohol
Generalized anxiety/depression
Asthma
- Continue albuterol
History of basal cell carcinoma status post excision
History of migraine
History of drug-induced peripheral neuropathy
- Hold cyclobenzaprine
- Gabapentin dose decreased to 600 twice daily
History of hypothyroidism
History of lumbar radiculopathy
History of rectovaginal fistula status post repair
History of cervical fusion
Hypothyroidism
- Continue levothyroxine
Insomnia
- Hold trazodone
DNR/DNI
Dispo -medically stable for discharge home on hospice. Case management aware.
35 minutes spent in discharge process.
Anticipated Discharge: Today
Subjective/Interval History
-
Date of Service: February 07, 2025
Patient seen and examined. No complaints.
Objective Data
-
Labs:
Laboratory Results
02/07/25
07:16
WBC 3.7 L
Hgb 8.5 L
Hct 24.3 L
Plt Count 150
Sodium 136
Potassium 4.4
Chloride 102
Carbon Dioxide 30
BUN 16
Creatinine 0.9
Glucose 109 H
Calcium 8.1 L
Total Bilirubin 0.6
AST 45 H
ALT 53 H
Alkaline Phosphatase 116
Vital Signs:
Vital Signs
Temp Pulse Resp BP Pulse Ox
97.9 F 94 14 140/82 100
02/07/25 07:00 02/07/25 07:00 02/07/25 07:00 02/07/25 07:00 02/07/25 07:00
I&O
02/06/25 02/07/25 02/08/25
06:59 06:59 06:59
Intake Total 1572 / 1572 1979
Balance 1572 / 1572 1979
Review of Systems
-
History Source: Patient
All other systems: Reviewed and negative
== END 2025-02-07 12:24 | disposition hospice, home (50) | DRG 91 ==
LOC: 3 WEST ACU 12:18
PROVIDERS: Hospitalist; Internal Medicine; ADMITTING PHYSICIAN Hospitalist; ATTENDING PHYSICIAN Hospitalist; CONSULT PHYSICIAN Internal Medicine Gastroenterology; CONSULT PHYSICIAN Internal Medicine Hematology & Oncology; EMERGENCY PHYSICIAN Emergency Medicine; FAMILY PHYSICIAN Internal Medicine Hematology & Oncology
DX: G08 Intracranial and intraspinal phlebitis and thrombophlebitis (principal); G92.8 Other toxic encephalopathy; C19 Malignant neoplasm of rectosigmoid junction; C78.00 Secondary malignant neoplasm of unspecified lung; C78.7 Secondary malignant neoplasm of liver and intrahepatic bile duct; C25.9 Malignant neoplasm of pancreas, unspecified; R64 Cachexia; E87.6 Hypokalemia; R62.7 Adult failure to thrive; Z90.49 Acquired absence of other specified parts of digestive tract; I10 Essential (primary) hypertension; F10.10 Alcohol abuse, uncomplicated; Z93.3 Colostomy status; F41.1 Generalized anxiety disorder; F32.A Depression, unspecified; J45.909 Unspecified asthma, uncomplicated; E03.9 Hypothyroidism, unspecified; Z66 Do not resuscitate; G47.00 Insomnia, unspecified; Z79.01 Long term (current) use of anticoagulants; C44.91 Basal cell carcinoma of skin, unspecified; Z79.890 Hormone replacement therapy; Z79.899 Other long term (current) drug therapy; Z88.5 Allergy status to narcotic agent; Z92.21 Personal history of antineoplastic chemotherapy; Z92.3 Personal history of irradiation; Z98.1 Arthrodesis status
CPT/HCPCS: 70470; 70553; 74022; 74177; 74183; 76700; 80053; 81003; 81015; 82140; 85025; 85027; 85730; 87040; 87086; 93005; 96372; 96374; 97116; 97162; 97530; 99285; A9575; Q9967